=== PATIENT | male | born 1960 | race African-American/Black ===

== ENCOUNTER 2019-02-23 09:20 | Outpatient (CLI) | payer OTHER ==
--- NOTE | 2019-02-24 19:55 | EKG ---
Test Reason : Blood Pressure : / mmHG Vent. Rate : 083 BPM Atrial Rate : 083 BPM P-R Int : 156 ms QRS Dur : 082 ms QT Int : 370 ms P-R-T Axes : 054 026 -29 degrees QTc Int : 434 ms Normal sinus rhythm Cannot rule out Anterior infarct , age undetermined Lateral injury pattern * ACUTE PA * Abnormal ECG When compared with ECG of 25-SEP-2010 17:32, Inverted T waves have replaced nonspecific T wave abnormality in Inferior leads Confirmed by MARELY HOLLINS, DR. Winston ([id number]) on 02/24/2019 7:55:19 PM Referred By: HERMELINDA Confirmed By:DR. Tish YAP MD
== END 2019-02-23 09:21 | disposition home or self-care (01) ==
LOC: LABBT 09:20
PROVIDERS: ATTEND Neurological Surgery
DX: Z01.818 Encounter for other preprocedural examination (principal); M54.16 Radiculopathy, lumbar region; M48.061 Spinal stenosis, lumbar region without neurogenic claudication
CPT/HCPCS: 93005; 93010

== ENCOUNTER 2019-03-19 05:38 | Day surgery (SDC) | payer OTHER ==
--- NOTE | 2019-03-18 16:54 | HP ---
HISTORY OF PRESENT ILLNESS: Mr. Perez is a pleasant 58-year-old gentleman here today for hospital followup from [facility]. He is known to our practice for distant lumbar decompression by Dr. Mallory. He is presenting with severe symptoms of neurogenic claudication, gait disturbance, and most recently some frequent urination. He reports one episode of incontinence that seems to be more related to the inability to get to the bathroom quick enough. He is using a walker now to mobilize. Pain is better at all times, worsens with ambulation. Nothing has really improved his symptoms. Other than numerous epidural steroid injections with integrated pain, which has recently not provided any more relief. MRI from [facility] reveals severe central canal stenosis at L2-3 above his prior laminectomy site. This is secondary to bone spurring as well as new disk herniation at L2. PAST MEDICAL HISTORY: Significant for hyperlipidemia, chronic pain syndrome, seasonal allergies, depression, hypertension, diabetes. CURRENT MEDICATIONS: 1. Voltaren. 2. Onglyza. 3. [place]. 4. Narcan. 5. Mobic. 6. Metoprolol. 7. Metformin. 8. Losartan. 9. Gabapentin. 10. Fluticasone. 11. Flexeril. 12. Duloxetine. 13. Cetirizine. 14. Baclofen. 15. Atorvastatin. ALLERGIES: NO KNOWN DRUG ALLERGIES. PHYSICAL EXAMINATION: GENERAL: The patient is alert and oriented x3. Gait is profoundly antalgic and stooped. EXTREMITIES: Lower extremity exam is essentially normal. He does have positive bilateral straight leg raise. ASSESSMENT: Lumbar stenosis and neurogenic claudication. PLAN: Dr. Lewis met with the patient, reviewed imaging, and advocated for L2-3 decompression. He explained to the patient the risks, benefits, and alternatives to the procedure. The patient expressed understanding and elected to move forward with surgery as discussed. I do believe the patient is mentally competent and capable of making medical decisions for himself. We will move forward with surgery as planned. Job ID: [id number]
[2019-03-19] MEDS ORDERED: Fentanyl 100 MCG/2 ML VIAL ONE ×5 (06:17→10:01)
[2019-03-19] MEDS ORDERED: Bupivacaine HCl 0.5%/Epinephrine 1:200,000/PF 30 ml Vial ONE (06:21)
[2019-03-19] MEDS ORDERED: Thrombin 5000 UNITS/5 ML VIAL ONE (06:21)
[2019-03-19] MEDS ORDERED: PHENYLEPHRINE-NS 100 MCG/ML 10 ML SYRINGE ONE (08:20)
[2019-03-19] MEDS ORDERED: Morphine Sulfate 2 MG/ML SYRINGE SLOW IVP PRN (09:11)
[2019-03-19] MEDS ORDERED: Meperidine HCl/PF 25 MG/ML VIAL SLOW IVP PRN (09:11)
[2019-03-19] MEDS ORDERED: PACU-Morphine 4MG/ML VIAL SLOW IVP PRN (09:11)
[2019-03-19] MEDS ORDERED: HYDROmorphone 2 MG/ML VIAL SLOW IVP PRN (09:11)
[2019-03-19] MEDS ORDERED: Ondansetron HCl/PF 4 MG/2 ML Vial IVP PRN (09:11)
[2019-03-19] MEDS ORDERED: Promethazine HCl 25 MG/ML VIAL SLOW IVP PRN (09:11)
[2019-03-19] MEDS ORDERED: Promethazine HCl 25 MG/ML VIAL IM PRN (09:11)
[2019-03-19] MEDS ORDERED: Tamsulosin HCl 0.4 MG CAP ONE (09:21)
[2019-03-19] MEDS ORDERED: Morphine 4 MG/ML VIAL ONE ×2 (09:26→09:42)
[2019-03-19] MEDS ORDERED: Morphine 2 MG/ML SYRINGE ONE (09:33)
[2019-03-19] MEDS ORDERED: Acetaminophen 1,000 MG in Premix Bag 1 BAG IVPB SCH (10:15)
[2019-03-19] MEDS ORDERED: diphenhydrAMINE 25 MG CAP PO PRN (10:21)
[2019-03-19] MEDS ORDERED: Acetaminophen 650 MG Suppository PR PRN (10:21)
[2019-03-19] MEDS ORDERED: Acetaminophen 325 MG TAB PO PRN (10:21)
[2019-03-19] MEDS ORDERED: Bisacodyl 10 MG SUPP PR PRN (10:21)
[2019-03-19] MEDS ORDERED: diphenhydrAMINE 50 MG/ML VIAL IVP PRN (10:21)
[2019-03-19] MEDS ORDERED: Mag-Al 1200 mg/1200 mg/30 ML UDCUP PO PRN (10:21)
[2019-03-19] MEDS ORDERED: Acetaminophen/Codeine 30-300mg Tablet PO PRN (10:21)
[2019-03-19] MEDS ORDERED: Ondansetron PF 4 MG/2 ML Vial IM PRN (10:23)
[2019-03-19 11:03] VITALS: BMI 48.1
[2019-03-19] MEDS: Sodium Chloride 0.9% 1,000 ML IV SCH ×2 (11:16→22:37)
[2019-03-19] MEDS: Morphine 4 MG/ML VIAL SLOW IVP PRN ×4 (11:18→22:37)
--- NOTE | 2019-03-19 11:44 | OP ---
DATE OF PROCEDURE: 03/19/2019 [employer] SPECIALIST: German Rivera PA-C INDICATION: Pain. DIAGNOSIS: Lumbar radiculopathy. PROCEDURES PERFORMED: Reoperation of L2-L3 decompression. ANESTHESIA: General. DESCRIPTION OF PROCEDURE: The patient was brought into the operating room and placed under general anesthesia. He was flipped from the supine to prone position on the operating room table. A linear incision was planned over the L2-L3 segment, which encompassed previous incision. After prepping and draping and after an appropriate perioperative pause, the incision was created. The soft tissues were swept left of midline. Ectopic bone was identified, which was present in the location of the patient's prior operation. The spinous process at L2-L3 was missing. A high-speed cutting drill bit as well as 1, 2, and 3 mm Kerrisons used to drill down the lateral recesses. The pedicles bilaterally were identified at L2 and L3. The lateral recesses were decompressed by moving the medial aspect of the facet joints on both sides. There remained ectopic bone over the central portion of the canal, but this was not compressive and not removed secondary to its adhesion to the underlying dura. After decompressing the segment, the wound was irrigated. Hemostasis was maintained throughout. The wound was then closed in anatomic layers and a pressure dressing was applied. There were no known procedural complications. Job ID: [id number]
[2019-03-19] MEDS: CEFAZOLIN 2 GM in Premix Bag 1 BAG IVPB SCH ×2 (15:23→22:36)
[2019-03-19] MEDS: Cyclobenzaprine 10 MG TAB PO PRN (17:41)
[2019-03-19] MEDS: Acetaminophen/Codeine 30-300mg Tablet PO PRN ×2 (19:07→22:37)
[2019-03-19] MEDS ORDERED: Methocarbamol 500 MG TAB PO SCH (21:00)
[2019-03-19] MEDS ORDERED: Non-Formulary Item 1 EACH (Gabapentin [Gabapentin] 1 TAB) PO SCH (21:00)
[2019-03-20] MEDS: Acetaminophen/Codeine 30-300mg Tablet PO PRN (05:34)
[2019-03-20] MEDS: Cyclobenzaprine 10 MG TAB PO PRN (05:34)
[2019-03-20] MEDS ORDERED: Tamsulosin HCl 0.4 MG CAP PO SCH (06:00)
[2019-03-20] MEDS ORDERED: metFORMIN 500 MG TAB PO SCH (08:00)
[2019-03-20] MEDS: Morphine 4 MG/ML VIAL SLOW IVP PRN (08:15)
[2019-03-20 08:27] VITALS: BP 125/68; TEMP 97.5
[2019-03-20] MEDS ORDERED: Amlodipine 10 MG TAB PO SCH (09:00)
[2019-03-20] MEDS ORDERED: Losartan 25 MG TAB PO SCH (09:00)
[2019-03-20] MEDS ORDERED: DULoxetine 60 MG CAP PO SCH (09:00)
[2019-03-20] MEDS ORDERED: SAXAGLIPTIN HCL PO SCH (09:00)
--- NOTE | 2019-03-20 14:12 | DIS ---
DATE OF ADMISSION: 03/19/2019 DATE OF DISCHARGE: 03/20/2019 The patient is a 58-year-old male, who is known to Dr. Lewis's Service for recent evaluation for progressive lumbar stenosis above his prior fusion and underwent L2 through L3 laminectomy on 03/19/2019. Following the surgery, the patient was transitioned to the floor, where his pain has been well controlled with p.o. medications, he is tolerating a regular diet, and he is voiding appropriately. He reports he has been ambulating easily in the hallways. On exam this morning, the patient is sitting up in a chair. He has no acute distress. He has free active range of motion of all extremities. No incisional issues. We will plan to dismiss the patient to home. I have discussed home care and precautions. I have provided him with a script for Tylenol No. 3. He should follow up with Dr. Lewis in 2 weeks. Job ID: [id number]
== END 2019-03-20 11:05 | disposition home or self-care (01) ==
LOC: SDC 05:38 → 2SW 09:45 → SDC 03-20 11:05
PROVIDERS: ATTEND Neurological Surgery
PROC: 0SB20ZZ Excision of Lumbar Vertebral Disc, Open Approach (ICD-10-PCS; principal; 2019-03-19)
DX: M48.061 Spinal stenosis, lumbar region without neurogenic claudication (principal); M54.16 Radiculopathy, lumbar region; I10 Essential (primary) hypertension; E78.5 Hyperlipidemia, unspecified; G47.30 Sleep apnea, unspecified; E66.01 Morbid (severe) obesity due to excess calories; Z68.42 Body mass index [BMI] 45.0-49.9, adult; Z99.89 Dependence on other enabling machines and devices
CPT/HCPCS: 36416; 76000; J0131; J0670; J0690; J2270; J3010

== ENCOUNTER 2020-06-30 07:08 | Day surgery (SDC) | payer OTHER ==
[2020-06-29 09:30] VITALS: BMI 44.8
--- NOTE | 2020-06-29 21:49 | HP ---
HISTORY OF PRESENT ILLNESS: Mr. Perez is known to us for prior lumbar decompression, who returns now with ever increasing symptoms of myelopathy. He also has concern not dissimilar to the last time he had surgery where he developed and now has also redeveloped symptoms of incontinence. This took him to the emergency department most recently where an MRI was performed at [facility] revealing rather profound central canal stenosis at L2-3, the level above his prior surgical site. Most certainly, this would explain his symptoms. PAST MEDICAL HISTORY: Significant for chronic pain syndrome, hyperlipidemia, anxiety, seasonal allergies, hypertension, and diabetes. CURRENT MEDICATIONS: 1. Voltaren. 2. Onglyza. 3. [place]. 4. Narcan. 5. Mobic. 6. Metoprolol. 7. Metformin. 8. Losartan. 9. Gabapentin. 10. Fluticasone. 11. Flexeril. 12. Duloxetine. 13. Cetirizine. 14. Baclofen. 15. Atorvastatin. ALLERGIES: TO CODEINE. PHYSICAL EXAMINATION: Deferred for telehealth visit. ASSESSMENT: Lumbar spinal stenosis with neurogenic claudication. PLAN: Dr. Lewis met with the patient, reviewed imaging, and advocated for an L2-L3 decompression. He explained to the patient the risks, benefits, and alternatives to the procedure. The patient expressed understanding and elected to move forward with surgery as discussed. I do believe the patient is mentally competent and capable of making medical decisions for himself. We will move forward with surgery as planned. Job ID: [id number]
[2020-06-30 08:29] LABS: Anion Gap 15 mmol/L (10-20); BUN (Urea Nitrogen) 22 mg/dL (8.4-25.7); Calc. Creatinine Clearance 111 mL/min (70-130); Calcium 9.1 mg/dL (7.8-10.44); Carbon Dioxide 23 mmol/L (23-31); Chloride 104 mmol/L (98-107); Glucose 153 mg/dL (80-115); Potassium 4.9 mmol/L (3.5-5.1); Sodium 137 mmol/L (136-145)
[2020-06-30] MEDS ORDERED: EPINEPHrine 1 MG/ML AMP ONE (08:39)
[2020-06-30] MEDS ORDERED: Bupivacaine PF 0.5% 30 ML VIAL ONE (08:39)
[2020-06-30] MEDS ORDERED: Morphine 2 MG/ML VIAL ONE (09:05)
[2020-06-30] MEDS ORDERED: Fentanyl 100 MCG/2 ML VIAL ONE ×5 (09:12→13:04)
--- NOTE | 2020-06-30 11:17 | OP ---
DATE OF PROCEDURE: 06/30/2020 [employer] OPERATOR: German Rivera PA-C INDICATION: Pain. DIAGNOSIS: Lumbar radiculopathy. PROCEDURE PERFORMED: Reoperation of L2-L3 decompression. ANESTHESIA: General. DESCRIPTION OF PROCEDURE: The patient was brought into the operating room and placed under general anesthesia. He was flipped from the supine to prone position on the operating room table. A linear incision was planned at the location of a prior incision. After prepping and draping and after an appropriate preoperative pause, the incision was created. The soft tissues were swept away from midline. A self-retaining retractor was placed in the wound for optimal exposure. After confirming the appropriate level with C-arm fluoroscopy, a bone defect was identified in the patient's prior operation. High-speed cutting drill bit as well as 1, 2, and 3 mm Kerrisons were then used to further complete laminectomy at L2-L3 with on the right, which was where the patient's pain was. We extended our laminectomy right from pedicle to pedicle at L2-L3. The cystic wall was encountered, which had been decompressed coming in to the area of the lamina. At the completion of the procedure, the L2-L3 segment, specifically the right L2-L3 lateral recess was very well decompressed. The wound was then irrigated. Hemostasis was maintained throughout. The wound was then closed in anatomic layers, and a pressure dressing was applied. There were no known procedural complications. Job ID: [id number]
[2020-06-30] MEDS ORDERED: HYDROcodone/Acetaminophen 5/325 mg Tablet ONE (12:48)
[2020-06-30] MEDS ORDERED: Tamsulosin HCl 0.4 MG CAP ONE (13:26)
== END 2020-06-30 14:55 | disposition home or self-care (01) ==
LOC: SDC 07:08
PROVIDERS: ATTEND Neurological Surgery
PROC: 00NY0ZZ Release Lumbar Spinal Cord, Open Approach (ICD-10-PCS; principal; 2020-06-30)
DX: M54.16 Radiculopathy, lumbar region (principal); M48.062 Spinal stenosis, lumbar region with neurogenic claudication; G89.4 Chronic pain syndrome; I10 Essential (primary) hypertension; E11.9 Type 2 diabetes mellitus without complications; E78.5 Hyperlipidemia, unspecified; F41.9 Anxiety disorder, unspecified; J30.2 Other seasonal allergic rhinitis; Z79.84 Long term (current) use of oral hypoglycemic drugs; Z79.899 Other long term (current) drug therapy; Z88.5 Allergy status to narcotic agent; Z96.642 Presence of left artificial hip joint
CPT/HCPCS: 36415; 76000; 80048; J0171; J0690; J2270; J3010; S0020

== ENCOUNTER 2020-09-25 09:35 | Outpatient (CLI) | payer OTHER ==
[2020-09-25] MEDS ORDERED: Magnevist 469MG/ML 20 ML VIAL ONE (10:51)
== END 2020-09-25 09:36 | disposition home or self-care (01) ==
LOC: TBSIIMAG 09:35
PROVIDERS: ATTEND Neurological Surgery
DX: M54.16 Radiculopathy, lumbar region (principal); M96.1 Postlaminectomy syndrome, not elsewhere classified; M48.061 Spinal stenosis, lumbar region without neurogenic claudication
CPT/HCPCS: 72100; 72158

== ENCOUNTER 2020-09-26 03:46 | Inpatient (IN) | payer OTHER ==
[2020-09-26] MEDS ORDERED: Bisacodyl 5 MG TAB PO PRN (04:56)
[2020-09-26] MEDS ORDERED: Ondansetron PF 4 MG/2 ML Vial IVP PRN (04:56)
[2020-09-26] MEDS ORDERED: HYDROcodone/Acetaminophen 5/325 mg Tablet PO PRN (04:56)
[2020-09-26] MEDS ORDERED: Fluticasone Propionate Nasal Spray 16 gm Bottle NASAL PRN (05:02)
[2020-09-26] MEDS ORDERED: HYDROcodone/Acetaminophen 10/325 mg Tablet PO PRN (05:02)
[2020-09-26] MEDS ORDERED: hydrALAZINE 20 MG/ML VIAL SLOW IVP PRN (05:06)
[2020-09-26 05:16] VITALS: BMI 49.4
[2020-09-26] MEDS ORDERED: Morphine 4 MG/ML VIAL SLOW IVP SCH (05:45)
[2020-09-26] MEDS: HumaLOG 300 UNITS/3 ML VIAL SC PRN (06:00)
[2020-09-26] MEDS: Sodium Chloride 0.9% 1,000 ML IV SCH ×2 (06:16→20:53)
[2020-09-26] MEDS: Pregabalin 50 MG CAP PO SCH ×3 (08:57→20:52)
[2020-09-26] MEDS: Famotidine 20 MG TAB PO SCH ×2 (08:57→20:52)
[2020-09-26] MEDS: DULoxetine 60 MG CAP PO SCH (08:57)
[2020-09-26] MEDS: Zinc Sulfate 220 MG CAP PO SCH (08:59)
[2020-09-26] MEDS: Alogliptin 25 MG TAB PO SCH (08:59)
[2020-09-26] MEDS: Amlodipine 10 MG TAB PO SCH (08:59)
[2020-09-26] MEDS ORDERED: Enoxaparin Sodium 40 MG/0.4 ML SYRINGE SC SCH (09:00)
[2020-09-26] MEDS: Furosemide 20 MG TAB PO SCH (09:00)
[2020-09-26] MEDS: Glimepiride 2 MG TAB PO SCH (09:00)
[2020-09-26] MEDS ORDERED: Aspirin 325 MG TAB PO SCH (09:00)
[2020-09-26] MEDS: Magnesium Oxide 400 MG TAB PO SCH (09:00)
[2020-09-26] MEDS: Multivit, Therapeutic 1 TAB PO SCH (09:00)
[2020-09-26] MEDS: Morphine 4 MG/ML VIAL SLOW IVP PRN ×3 (10:09→19:17)
[2020-09-26 11:34] LABS: SARS-CoV-2 PCR by NAA Not Detected (NotDetected)
[2020-09-26] MEDS: metFORMIN 500 MG TAB PO SCH (12:52)
[2020-09-26] MEDS ORDERED: Vancomycin 1 GM in Premix Bag 1 BAG IVPB SCH ×2 (18:00→23:59)
[2020-09-26] MEDS: Vancomycin 1.5 GRAM/300 ML BAG 1.5 GM in Premix Bag 1 BAG IVPB SCH (18:02)
[2020-09-26] MEDS: Atorvastatin Calcium 20 MG TAB PO SCH (20:52)
[2020-09-27] MEDS: Morphine 4 MG/ML VIAL SLOW IVP PRN ×5 (01:07→21:12)
[2020-09-27] MEDS: Vancomycin 1.5 GRAM/300 ML BAG 1.5 GM in Premix Bag 1 BAG IVPB SCH ×2 (05:37→17:48)
[2020-09-27 06:34] LABS: Hemoglobin 12.1 g/dL (14.0-18.0); Mean Corpuscular HGB CONC 30.3 g/dL (32.0-36.0); Mean Corpuscular Hemoglobin 27.3 pg (27.0-31.0); Mean Corpuscular Volume 90.1 fL (78.0-98.0); Mean Platelet Volume 6.4 fL (7.4-10.4); Platelet Count 514 thou/uL (130-400); RBC Distribution Width 13.3 % (11.5-14.5); Red Blood Cell (RBC) Count 4.43 mill/uL (4.70-6.10); White Blood Cell (WBC) Count 7.6 thou/uL (4.8-10.8)
[2020-09-27 06:46] LABS: ALT (SGPT) 20 U/L (8-55); AST (SGOT) 15 U/L (5-34); Albumin 3.8 g/dL (3.4-4.8); Alkaline Phosphatase 77 U/L (40-110); Anion Gap 15 mmol/L (10-20); BUN (Urea Nitrogen) 15 mg/dL (8.4-25.7); Bilirubin, Total 0.4 mg/dL (0.2-1.2); Calc. Creatinine Clearance 154 mL/min (70-130); Calcium 9.3 mg/dL (7.8-10.44); Carbon Dioxide 24 mmol/L (23-31); Chloride 103 mmol/L (98-107); Globulin 3.2 g/dL (2.4-3.5); Glucose 150 mg/dL (80-115); Magnesium 2.2 mg/dL (1.6-2.6); Potassium 4.5 mmol/L (3.5-5.1); Sodium 137 mmol/L (136-145)
[2020-09-27] MEDS: Multivit, Therapeutic 1 TAB PO SCH (08:07)
[2020-09-27] MEDS: Glimepiride 2 MG TAB PO SCH (08:07)
[2020-09-27] MEDS: Furosemide 20 MG TAB PO SCH (08:07)
[2020-09-27] MEDS: Alogliptin 25 MG TAB PO SCH (08:07)
[2020-09-27] MEDS: DULoxetine 60 MG CAP PO SCH (08:07)
[2020-09-27] MEDS: Famotidine 20 MG TAB PO SCH ×2 (08:07→21:13)
[2020-09-27] MEDS: Pregabalin 50 MG CAP PO SCH ×3 (08:07→21:13)
[2020-09-27] MEDS: Amlodipine 10 MG TAB PO SCH (08:07)
[2020-09-27] MEDS: Zinc Sulfate 220 MG CAP PO SCH (08:07)
[2020-09-27] MEDS: Magnesium Oxide 400 MG TAB PO SCH (08:07)
[2020-09-27 08:23] LABS: Lymphocytes 16 % (21-51); MDiff Complete? YES; Monocytes 7 % (0-10); Neutrophil 76 % (42-75); Platelet Morphology Comment Appears Increased; Polychromasia SLIGHT = 2-3 cells (100X) (0-2/hpf)
[2020-09-27] MEDS: Sodium Chloride 0.9% 1,000 ML IV SCH (10:03)
[2020-09-27] MEDS: metFORMIN 500 MG TAB PO SCH (12:32)
[2020-09-27] MEDS: Ketorolac Tromethamine 30 MG/ML VIAL IVP SCH ×3 (12:33→23:47)
[2020-09-27] MEDS: HYDROcodone/Acetaminophen 10/325 mg Tablet PO PRN (18:14)
[2020-09-27] MEDS: Atorvastatin Calcium 20 MG TAB PO SCH (21:23)
[2020-09-28] MEDS: Ketorolac Tromethamine 30 MG/ML VIAL IVP SCH ×4 (05:14→22:59)
[2020-09-28] MEDS: Morphine 4 MG/ML VIAL SLOW IVP PRN ×4 (05:15→22:53)
[2020-09-28 06:01] LABS: #Basophils 0.1 thou/uL (0.0-0.2); #Eosinphils 0.2 thou/uL (0.0-0.7); #Lymphocytes 1.9 thou/uL (1.20-3.40); #Monocytes 0.5 thou/uL (0.11-0.59); #Neutrophils 4.9 thou/uL (1.40-6.50); %Eosinophils 2.7 % (0.0-10.0); %Lymphocytes 24.6 % (21.0-51.0); %Monocytes 6.5 % (0.0-10.0); %Neutrophils 65.2 % (42.0-75.0); Hemoglobin 12.2 g/dL (14.0-18.0); Mean Corpuscular HGB CONC 31.3 g/dL (32.0-36.0); Mean Corpuscular Hemoglobin 28.2 pg (27.0-31.0); Mean Platelet Volume 6.3 fL (7.4-10.4); Platelet Count 478 thou/uL (130-400); RBC Distribution Width 13.1 % (11.5-14.5); Red Blood Cell (RBC) Count 4.33 mill/uL (4.70-6.10); White Blood Cell (WBC) Count 7.6 thou/uL (4.8-10.8)
[2020-09-28 06:22] LABS: Vancomycin, Trough 14.9 ug/mL
[2020-09-28] MEDS: HYDROcodone/Acetaminophen 10/325 mg Tablet PO PRN ×2 (06:36→20:30)
[2020-09-28] MEDS: VANCOMYCIN 1.75 GM/350 ML BAG 1.75 GM in Premix Bag 1 BAG IVPB SCH ×2 (06:40→17:45)
[2020-09-28] MEDS: Vancomycin 1.5 GRAM/300 ML BAG 1.5 GM in Premix Bag 1 BAG IVPB SCH (07:37)
[2020-09-28] MEDS: Famotidine 20 MG TAB PO SCH ×2 (08:57→20:29)
[2020-09-28] MEDS: Glimepiride 2 MG TAB PO SCH (08:57)
[2020-09-28] MEDS: Zinc Sulfate 220 MG CAP PO SCH (08:58)
[2020-09-28] MEDS: Magnesium Oxide 400 MG TAB PO SCH (08:58)
[2020-09-28] MEDS: DULoxetine 60 MG CAP PO SCH (08:58)
[2020-09-28] MEDS: Pregabalin 50 MG CAP PO SCH ×3 (08:58→20:29)
[2020-09-28] MEDS: Alogliptin 25 MG TAB PO SCH (08:58)
[2020-09-28] MEDS: Multivit, Therapeutic 1 TAB PO SCH (08:59)
[2020-09-28] MEDS: Amlodipine 10 MG TAB PO SCH (09:00)
[2020-09-28] MEDS: Furosemide 20 MG TAB PO SCH (09:00)
[2020-09-28] MEDS: Senokot S 8.6-50 MG TAB PO PRN (12:09)
[2020-09-28] MEDS: metFORMIN 500 MG TAB PO SCH (12:09)
[2020-09-28] MEDS ORDERED: Sodium Bicarbonate 2.5 MEQ/5 ML VIAL ONE (14:17)
[2020-09-28] MEDS ORDERED: Fentanyl 100 MCG/2 ML VIAL ONE (15:05)
[2020-09-28] MEDS: Cefepime 2 GM in Sodium Chloride 0.9% 100 ML IVPB SCH (20:28)
[2020-09-28] MEDS: Cyclobenzaprine 10 MG TAB PO PRN (20:29)
[2020-09-28] MEDS: Atorvastatin Calcium 20 MG TAB PO SCH (20:29)
[2020-09-28] MEDS: Zolpidem Tartrate 5 MG TAB PO PRN (20:33)
[2020-09-29] MEDS: Ketorolac Tromethamine 30 MG/ML VIAL IVP SCH ×4 (05:13→23:07)
[2020-09-29] MEDS: Cefepime 2 GM in Sodium Chloride 0.9% 100 ML IVPB SCH ×2 (05:13→16:54)
[2020-09-29] MEDS: VANCOMYCIN 1.75 GM/350 ML BAG 1.75 GM in Premix Bag 1 BAG IVPB SCH (05:14)
[2020-09-29] MEDS: HYDROcodone/Acetaminophen 10/325 mg Tablet PO PRN ×4 (05:27→23:08)
[2020-09-29] MEDS: Glimepiride 2 MG TAB PO SCH (08:14)
[2020-09-29] MEDS: DULoxetine 60 MG CAP PO SCH (08:14)
[2020-09-29] MEDS: Alogliptin 25 MG TAB PO SCH (08:15)
[2020-09-29] MEDS: Zinc Sulfate 220 MG CAP PO SCH (08:15)
[2020-09-29] MEDS: Furosemide 20 MG TAB PO SCH (08:15)
[2020-09-29] MEDS: Magnesium Oxide 400 MG TAB PO SCH (08:15)
[2020-09-29] MEDS: Famotidine 20 MG TAB PO SCH ×2 (08:15→21:58)
[2020-09-29] MEDS: Multivit, Therapeutic 1 TAB PO SCH (08:15)
[2020-09-29] MEDS: Pregabalin 50 MG CAP PO SCH ×3 (08:15→21:59)
[2020-09-29] MEDS: Amlodipine 10 MG TAB PO SCH (08:15)
[2020-09-29] MEDS: Morphine 4 MG/ML VIAL SLOW IVP PRN ×3 (09:29→18:25)
[2020-09-29] MEDS: Lidocaine 5% Patch TD SCH (11:52)
[2020-09-29] MEDS: metFORMIN 500 MG TAB PO SCH (11:52)
[2020-09-29] MEDS: HumaLOG 300 UNITS/3 ML VIAL SC PRN (12:05)
[2020-09-29 17:18] LABS: Vancomycin, Trough 24.3 ug/mL
[2020-09-29] MEDS: Vancomycin 1.5 GRAM/300 ML BAG 1.5 GM in Premix Bag 1 BAG IVPB SCH (18:24)
[2020-09-29] MEDS: Cyclobenzaprine 10 MG TAB PO PRN (21:59)
[2020-09-29] MEDS: Atorvastatin Calcium 20 MG TAB PO SCH (21:59)
[2020-09-29] MEDS: Transdermal Patch Removal TOP SCH (23:00)
[2020-09-30] MEDS: Morphine 4 MG/ML VIAL SLOW IVP PRN ×2 (01:58→20:00)
[2020-09-30 05:29] LABS: #Eosinphils 0.2 thou/uL (0.0-0.7); #Lymphocytes 1.6 thou/uL (1.20-3.40); #Monocytes 0.6 thou/uL (0.11-0.59); #Neutrophils 4.8 thou/uL (1.40-6.50); %Basophils 0.6 % (0.0-1.0); %Eosinophils 2.6 % (0.0-10.0); %Lymphocytes 22.3 % (21.0-51.0); %Monocytes 8.7 % (0.0-10.0); %Neutrophils 65.8 % (42.0-75.0); Hemoglobin 11.7 g/dL (14.0-18.0); Mean Corpuscular HGB CONC 30.1 g/dL (32.0-36.0); Mean Corpuscular Hemoglobin 27.2 pg (27.0-31.0); Mean Corpuscular Volume 90.4 fL (78.0-98.0); Mean Platelet Volume 6.4 fL (7.4-10.4); Platelet Count 469 thou/uL (130-400); White Blood Cell (WBC) Count 7.3 thou/uL (4.8-10.8)
[2020-09-30] MEDS: Ketorolac Tromethamine 30 MG/ML VIAL IVP SCH ×4 (05:53→23:58)
[2020-09-30] MEDS: Cefepime 2 GM in Sodium Chloride 0.9% 100 ML IVPB SCH ×2 (05:53→17:30)
[2020-09-30] MEDS: HYDROcodone/Acetaminophen 10/325 mg Tablet PO PRN ×2 (05:54→11:37)
[2020-09-30] MEDS: Vancomycin 1.5 GRAM/300 ML BAG 1.5 GM in Premix Bag 1 BAG IVPB SCH ×3 (06:31→18:43)
[2020-09-30] MEDS: Senokot S 8.6-50 MG TAB PO PRN ×2 (09:31→19:59)
[2020-09-30] MEDS: Magnesium Oxide 400 MG TAB PO SCH (09:31)
[2020-09-30] MEDS: Pregabalin 50 MG CAP PO SCH ×3 (09:32→20:00)
[2020-09-30] MEDS: Famotidine 20 MG TAB PO SCH ×2 (09:32→19:59)
[2020-09-30] MEDS: DULoxetine 60 MG CAP PO SCH (09:32)
[2020-09-30] MEDS: Multivit, Therapeutic 1 TAB PO SCH (09:32)
[2020-09-30] MEDS: Alogliptin 25 MG TAB PO SCH (09:32)
[2020-09-30] MEDS: Furosemide 20 MG TAB PO SCH (09:33)
[2020-09-30] MEDS: Zinc Sulfate 220 MG CAP PO SCH (09:33)
[2020-09-30] MEDS: Amlodipine 10 MG TAB PO SCH (09:33)
[2020-09-30] MEDS: Glimepiride 2 MG TAB PO SCH (09:33)
[2020-09-30] MEDS: metFORMIN 500 MG TAB PO SCH (11:37)
[2020-09-30] MEDS: Lidocaine 5% Patch TD SCH (11:37)
[2020-09-30] MEDS: Cyclobenzaprine 10 MG TAB PO PRN (15:44)
[2020-09-30] MEDS: HumaLOG 300 UNITS/3 ML VIAL SC PRN (17:31)
[2020-09-30 18:36] LABS: Vancomycin, Trough 23.8 ug/mL
[2020-09-30] MEDS: VANCOMYCIN 1.25 GM/250 ML BAG 1.25 GM in Premix Bag 1 BAG IVPB SCH (19:58)
[2020-09-30] MEDS: Atorvastatin Calcium 20 MG TAB PO SCH (19:59)
[2020-09-30] MEDS: Transdermal Patch Removal TOP SCH (23:58)
[2020-10-01] MEDS: Cyclobenzaprine 10 MG TAB PO PRN ×2 (05:23→20:02)
[2020-10-01] MEDS: Cefepime 2 GM in Sodium Chloride 0.9% 100 ML IVPB SCH ×2 (05:23→17:32)
[2020-10-01] MEDS: HYDROcodone/Acetaminophen 10/325 mg Tablet PO PRN ×3 (05:23→20:01)
[2020-10-01] MEDS: Ketorolac Tromethamine 30 MG/ML VIAL IVP SCH ×3 (05:23→17:32)
[2020-10-01] MEDS: Alogliptin 25 MG TAB PO SCH (09:55)
[2020-10-01] MEDS: DULoxetine 60 MG CAP PO SCH (09:55)
[2020-10-01] MEDS: Furosemide 20 MG TAB PO SCH (09:56)
[2020-10-01] MEDS: Magnesium Oxide 400 MG TAB PO SCH (09:56)
[2020-10-01] MEDS: Famotidine 20 MG TAB PO SCH ×2 (09:56→20:01)
[2020-10-01] MEDS: Amlodipine 10 MG TAB PO SCH (09:56)
[2020-10-01] MEDS: Senokot S 8.6-50 MG TAB PO PRN (09:56)
[2020-10-01] MEDS: Pregabalin 50 MG CAP PO SCH ×3 (09:57→20:02)
[2020-10-01] MEDS: Zinc Sulfate 220 MG CAP PO SCH (09:57)
[2020-10-01] MEDS: Glimepiride 2 MG TAB PO SCH (09:59)
[2020-10-01] MEDS: Multivit, Therapeutic 1 TAB PO SCH (09:59)
[2020-10-01] MEDS: Lidocaine 5% Patch TD SCH (10:01)
[2020-10-01] MEDS: VANCOMYCIN 1.25 GM/250 ML BAG 1.25 GM in Premix Bag 1 BAG IVPB SCH ×2 (10:07→20:00)
[2020-10-01] MEDS ORDERED: Polyethylene Glycol 3350 17 GM Packet PO SCH (11:00)
[2020-10-01] MEDS: metFORMIN 500 MG TAB PO SCH (11:44)
[2020-10-01] MEDS: Morphine 4 MG/ML VIAL SLOW IVP PRN (15:33)
[2020-10-01] MEDS: Atorvastatin Calcium 20 MG TAB PO SCH (20:01)
[2020-10-02] MEDS: Transdermal Patch Removal TOP SCH ×2 (00:21→21:59)
[2020-10-02] MEDS: Morphine 4 MG/ML VIAL SLOW IVP PRN (00:22)
[2020-10-02] MEDS: Ketorolac Tromethamine 30 MG/ML VIAL IVP SCH ×4 (00:23→17:46)
[2020-10-02] MEDS: Cefepime 2 GM in Sodium Chloride 0.9% 100 ML IVPB SCH ×2 (06:03→17:46)
[2020-10-02] MEDS: Cyclobenzaprine 10 MG TAB PO PRN ×2 (06:03→21:52)
[2020-10-02] MEDS: HumaLOG 300 UNITS/3 ML VIAL SC PRN (06:04)
[2020-10-02] MEDS: HYDROcodone/Acetaminophen 10/325 mg Tablet PO PRN ×2 (06:04→21:52)
[2020-10-02 07:30] LABS: Vancomycin, Trough 21.5 ug/mL
[2020-10-02] MEDS: Famotidine 20 MG TAB PO SCH ×2 (08:11→21:51)
[2020-10-02] MEDS: Magnesium Oxide 400 MG TAB PO SCH (08:11)
[2020-10-02] MEDS: Amlodipine 10 MG TAB PO SCH (08:11)
[2020-10-02] MEDS: Multivit, Therapeutic 1 TAB PO SCH (08:11)
[2020-10-02] MEDS: Furosemide 20 MG TAB PO SCH (08:11)
[2020-10-02] MEDS: Alogliptin 25 MG TAB PO SCH (08:11)
[2020-10-02] MEDS: DULoxetine 60 MG CAP PO SCH (08:11)
[2020-10-02] MEDS: Zinc Sulfate 220 MG CAP PO SCH (08:12)
[2020-10-02] MEDS: Pregabalin 50 MG CAP PO SCH ×3 (08:12→21:52)
[2020-10-02] MEDS: Polyethylene Glycol 3350 17 GM Packet PO SCH (08:13)
[2020-10-02] MEDS: Glimepiride 2 MG TAB PO SCH (08:13)
[2020-10-02] MEDS: Vancomycin 1 GM in Premix Bag 1 BAG IVPB SCH ×2 (09:17→21:51)
[2020-10-02] MEDS: VANCOMYCIN 1.25 GM/250 ML BAG 1.25 GM in Premix Bag 1 BAG IVPB SCH (09:17)
[2020-10-02] MEDS: metFORMIN 500 MG TAB PO SCH (11:35)
[2020-10-02] MEDS: Lidocaine 5% Patch TD SCH (11:35)
[2020-10-02] MEDS: Atorvastatin Calcium 20 MG TAB PO SCH (21:52)
[2020-10-03] MEDS: Ketorolac Tromethamine 30 MG/ML VIAL IVP SCH (01:02)
[2020-10-03] MEDS: Morphine 4 MG/ML VIAL SLOW IVP PRN ×3 (01:03→21:15)
[2020-10-03] MEDS: HYDROcodone/Acetaminophen 10/325 mg Tablet PO PRN ×2 (06:07→16:57)
[2020-10-03] MEDS: Cefepime 2 GM in Sodium Chloride 0.9% 100 ML IVPB SCH ×2 (06:08→16:56)
[2020-10-03] MEDS: Cyclobenzaprine 10 MG TAB PO PRN (06:08)
[2020-10-03 08:36] LABS: #Basophils 0.1 thou/uL (0.0-0.2); #Eosinphils 0.1 thou/uL (0.0-0.7); #Lymphocytes 1.2 thou/uL (1.20-3.40); #Monocytes 0.4 thou/uL (0.11-0.59); #Neutrophils 3.1 thou/uL (1.40-6.50); %Basophils 1.2 % (0.0-1.0); %Eosinophils 2.4 % (0.0-10.0); %Lymphocytes 24.9 % (21.0-51.0); %Monocytes 8.6 % (0.0-10.0); Hemoglobin 12.8 g/dL (14.0-18.0); Mean Corpuscular Hemoglobin 27.6 pg (27.0-31.0); Mean Corpuscular Volume 89.1 fL (78.0-98.0); Mean Platelet Volume 6.3 fL (7.4-10.4); Platelet Count 387 thou/uL (130-400); RBC Distribution Width 12.9 % (11.5-14.5); Red Blood Cell (RBC) Count 4.63 mill/uL (4.70-6.10); White Blood Cell (WBC) Count 4.8 thou/uL (4.8-10.8)
[2020-10-03 08:52] LABS: ALT (SGPT) 20 U/L (8-55); AST (SGOT) 16 U/L (5-34); Albumin 3.8 g/dL (3.4-4.8); Alkaline Phosphatase 76 U/L (40-110); Anion Gap 11 mmol/L (10-20); BUN (Urea Nitrogen) 15 mg/dL (8.4-25.7); Bilirubin, Total 0.5 mg/dL (0.2-1.2); Calc. Creatinine Clearance 162 mL/min (70-130); Calcium 9.2 mg/dL (7.8-10.44); Carbon Dioxide 24 mmol/L (23-31); Chloride 105 mmol/L (98-107); Globulin 3.3 g/dL (2.4-3.5); Glucose 100 mg/dL (80-115); Magnesium 2.2 mg/dL (1.6-2.6); Phosphorus 3.3 mg/dL (2.3-4.7); Potassium 4.3 mmol/L (3.5-5.1); Protein, Total 7.1 g/dL (5.8-8.1); Sodium 136 mmol/L (136-145)
[2020-10-03] MEDS: Vancomycin 1 GM in Premix Bag 1 BAG IVPB SCH ×2 (09:17→20:54)
[2020-10-03] MEDS: Glimepiride 2 MG TAB PO SCH (09:17)
[2020-10-03] MEDS: Pregabalin 50 MG CAP PO SCH ×3 (09:18→20:55)
[2020-10-03] MEDS: Polyethylene Glycol 3350 17 GM Packet PO SCH ×2 (09:18→20:56)
[2020-10-03] MEDS: Alogliptin 25 MG TAB PO SCH (09:19)
[2020-10-03] MEDS: DULoxetine 60 MG CAP PO SCH (09:19)
[2020-10-03] MEDS: Zinc Sulfate 220 MG CAP PO SCH (09:19)
[2020-10-03] MEDS: Famotidine 20 MG TAB PO SCH ×2 (09:19→20:54)
[2020-10-03] MEDS: Magnesium Oxide 400 MG TAB PO SCH (09:19)
[2020-10-03] MEDS: Multivit, Therapeutic 1 TAB PO SCH (09:19)
[2020-10-03] MEDS: Amlodipine 10 MG TAB PO SCH (09:20)
[2020-10-03] MEDS: Furosemide 20 MG TAB PO SCH (09:20)
[2020-10-03] MEDS: metFORMIN 500 MG TAB PO SCH (11:55)
[2020-10-03] MEDS: Lidocaine 5% Patch TD SCH (11:55)
[2020-10-03] MEDS ORDERED: Senokot S 8.6-50 MG TAB PO SCH (12:15)
[2020-10-03] MEDS ORDERED: Polyethylene Glycol 3350 17 GM Packet PO SCH (12:15)
[2020-10-03] MEDS: Atorvastatin Calcium 20 MG TAB PO SCH (20:55)
[2020-10-03] MEDS: Bisacodyl 10 MG SUPP PR SCH (20:56)
[2020-10-03] MEDS: Senokot S 8.6-50 MG TAB PO SCH (20:56)
[2020-10-03] MEDS: Zolpidem Tartrate 5 MG TAB PO PRN (20:57)
[2020-10-03] MEDS: Transdermal Patch Removal TOP SCH (21:19)
[2020-10-04] MEDS: HYDROcodone/Acetaminophen 10/325 mg Tablet PO PRN ×3 (01:15→21:18)
[2020-10-04] MEDS: Cefepime 2 GM in Sodium Chloride 0.9% 100 ML IVPB SCH ×2 (05:01→17:19)
[2020-10-04] MEDS: HumaLOG 300 UNITS/3 ML VIAL SC PRN ×2 (05:02→13:53)
[2020-10-04 06:37] LABS: #Basophils 0.1 thou/uL (0.0-0.2); #Eosinphils 0.2 thou/uL (0.0-0.7); #Lymphocytes 1.4 thou/uL (1.20-3.40); #Monocytes 0.4 thou/uL (0.11-0.59); #Neutrophils 3.2 thou/uL (1.40-6.50); %Basophils 1.1 % (0.0-1.0); %Eosinophils 3.6 % (0.0-10.0); %Lymphocytes 25.8 % (21.0-51.0); %Neutrophils 61.5 % (42.0-75.0); Mean Corpuscular HGB CONC 31.2 g/dL (32.0-36.0); Mean Corpuscular Hemoglobin 27.7 pg (27.0-31.0); Mean Corpuscular Volume 88.7 fL (78.0-98.0); Mean Platelet Volume 6.3 fL (7.4-10.4); Platelet Count 340 thou/uL (130-400); Red Blood Cell (RBC) Count 4.36 mill/uL (4.70-6.10); White Blood Cell (WBC) Count 5.2 thou/uL (4.8-10.8)
[2020-10-04 06:55] LABS: Anion Gap 11 mmol/L (10-20); BUN (Urea Nitrogen) 14 mg/dL (8.4-25.7); Calc. Creatinine Clearance 195 mL/min (70-130); Calcium 9.3 mg/dL (7.8-10.44); Carbon Dioxide 26 mmol/L (23-31); Chloride 102 mmol/L (98-107); Glucose 128 mg/dL (80-115); Potassium 4.3 mmol/L (3.5-5.1); Sodium 135 mmol/L (136-145)
[2020-10-04] MEDS: Senokot S 8.6-50 MG TAB PO SCH ×2 (08:01→21:14)
[2020-10-04] MEDS: Magnesium Oxide 400 MG TAB PO SCH (08:01)
[2020-10-04] MEDS: Polyethylene Glycol 3350 17 GM Packet PO SCH ×2 (08:01→21:14)
[2020-10-04] MEDS: Famotidine 20 MG TAB PO SCH ×2 (08:01→21:11)
[2020-10-04] MEDS: Saccharomyces boulardii 250 MG CAP PO SCH (08:02)
[2020-10-04] MEDS: DULoxetine 60 MG CAP PO SCH (08:02)
[2020-10-04] MEDS: Alogliptin 25 MG TAB PO SCH (08:02)
[2020-10-04] MEDS: Pregabalin 50 MG CAP PO SCH ×3 (08:02→21:11)
[2020-10-04] MEDS: Glimepiride 2 MG TAB PO SCH (08:03)
[2020-10-04] MEDS: Vancomycin 1 GM in Premix Bag 1 BAG IVPB SCH ×3 (08:03→21:50)
[2020-10-04] MEDS: Zinc Sulfate 220 MG CAP PO SCH (08:03)
[2020-10-04] MEDS: Amlodipine 10 MG TAB PO SCH (08:03)
[2020-10-04] MEDS: Furosemide 20 MG TAB PO SCH (08:03)
[2020-10-04] MEDS: Multivit, Therapeutic 1 TAB PO SCH (08:03)
[2020-10-04] MEDS: Morphine 4 MG/ML VIAL SLOW IVP PRN (10:52)
[2020-10-04] MEDS: Lidocaine 5% Patch TD SCH (12:04)
[2020-10-04] MEDS: metFORMIN 500 MG TAB PO SCH (12:04)
[2020-10-04] MEDS: Atorvastatin Calcium 20 MG TAB PO SCH (21:12)
[2020-10-04] MEDS: Bisacodyl 10 MG SUPP PR SCH (21:13)
[2020-10-04 21:15] LABS: Vancomycin, Trough 11.2 ug/mL
[2020-10-04] MEDS: VANCOMYCIN 1.25 GM/250 ML BAG 1.25 GM in Premix Bag 1 BAG IVPB SCH (21:54)
[2020-10-04] MEDS: Transdermal Patch Removal TOP SCH (23:09)
[2020-10-05] MEDS: Morphine 4 MG/ML VIAL SLOW IVP PRN ×3 (02:30→20:35)
[2020-10-05] MEDS: Cefepime 2 GM in Sodium Chloride 0.9% 100 ML IVPB SCH ×2 (05:28→17:38)
[2020-10-05] MEDS: HumaLOG 300 UNITS/3 ML VIAL SC PRN ×2 (05:29→17:38)
[2020-10-05 06:00] LABS: #Basophils 0.1 thou/uL (0.0-0.2); #Eosinphils 0.2 thou/uL (0.0-0.7); #Lymphocytes 1.3 thou/uL (1.20-3.40); #Monocytes 0.3 thou/uL (0.11-0.59); #Neutrophils 3.5 thou/uL (1.40-6.50); %Basophils 1.2 % (0.0-1.0); %Eosinophils 3.6 % (0.0-10.0); %Neutrophils 65.2 % (42.0-75.0); Hemoglobin 12.8 g/dL (14.0-18.0); Mean Corpuscular HGB CONC 31.7 g/dL (32.0-36.0); Mean Corpuscular Hemoglobin 28.8 pg (27.0-31.0); Mean Corpuscular Volume 90.9 fL (78.0-98.0); Mean Platelet Volume 6.8 fL (7.4-10.4); Platelet Count 353 thou/uL (130-400); RBC Distribution Width 12.7 % (11.5-14.5); Red Blood Cell (RBC) Count 4.46 mill/uL (4.70-6.10); White Blood Cell (WBC) Count 5.3 thou/uL (4.8-10.8)
[2020-10-05 06:24] LABS: Anion Gap 14 mmol/L (10-20); BUN (Urea Nitrogen) 13 mg/dL (8.4-25.7); Calc. Creatinine Clearance 165 mL/min (70-130); Calcium 9.4 mg/dL (7.8-10.44); Carbon Dioxide 24 mmol/L (23-31); Chloride 102 mmol/L (98-107); Glucose 191 mg/dL (80-115); Potassium 4.3 mmol/L (3.5-5.1); Sodium 136 mmol/L (136-145)
[2020-10-05] MEDS: Polyethylene Glycol 3350 17 GM Packet PO SCH ×2 (08:11→20:39)
[2020-10-05] MEDS: Pregabalin 50 MG CAP PO SCH ×3 (08:11→20:36)
[2020-10-05] MEDS: Alogliptin 25 MG TAB PO SCH (08:12)
[2020-10-05] MEDS: Zinc Sulfate 220 MG CAP PO SCH (08:12)
[2020-10-05] MEDS: Senokot S 8.6-50 MG TAB PO SCH ×2 (08:12→20:38)
[2020-10-05] MEDS: Famotidine 20 MG TAB PO SCH ×2 (08:12→20:38)
[2020-10-05] MEDS: DULoxetine 60 MG CAP PO SCH (08:12)
[2020-10-05] MEDS: Glimepiride 2 MG TAB PO SCH (08:12)
[2020-10-05] MEDS: Saccharomyces boulardii 250 MG CAP PO SCH (08:12)
[2020-10-05] MEDS: Multivit, Therapeutic 1 TAB PO SCH (08:13)
[2020-10-05] MEDS: Furosemide 20 MG TAB PO SCH (08:13)
[2020-10-05] MEDS: Magnesium Oxide 400 MG TAB PO SCH (08:13)
[2020-10-05] MEDS: Amlodipine 10 MG TAB PO SCH (08:13)
[2020-10-05] MEDS: HYDROcodone/Acetaminophen 10/325 mg Tablet PO PRN ×2 (09:33→16:24)
[2020-10-05] MEDS: VANCOMYCIN 1.25 GM/250 ML BAG 1.25 GM in Premix Bag 1 BAG IVPB SCH ×2 (09:34→21:47)
[2020-10-05] MEDS ORDERED: Morphine 2 MG/ML VIAL SLOW IVP PRN (10:36)
[2020-10-05] MEDS: Lidocaine 5% Patch TD SCH (11:10)
[2020-10-05] MEDS: metFORMIN 500 MG TAB PO SCH (12:30)
[2020-10-05] MEDS: Bisacodyl 10 MG SUPP PR SCH (20:39)
[2020-10-05] MEDS: Atorvastatin Calcium 20 MG TAB PO SCH (20:39)
[2020-10-05] MEDS: Transdermal Patch Removal TOP SCH (22:08)
[2020-10-06] MEDS: HYDROcodone/Acetaminophen 10/325 mg Tablet PO PRN ×2 (03:56→09:50)
[2020-10-06] MEDS: Cefepime 2 GM in Sodium Chloride 0.9% 100 ML IVPB SCH (06:00)
[2020-10-06] MEDS: Famotidine 20 MG TAB PO SCH (08:01)
[2020-10-06] MEDS: Saccharomyces boulardii 250 MG CAP PO SCH (08:01)
[2020-10-06] MEDS: Glimepiride 2 MG TAB PO SCH (08:01)
[2020-10-06] MEDS: Magnesium Oxide 400 MG TAB PO SCH (08:01)
[2020-10-06] MEDS: Senokot S 8.6-50 MG TAB PO SCH (08:01)
[2020-10-06] MEDS: Polyethylene Glycol 3350 17 GM Packet PO SCH (08:01)
[2020-10-06] MEDS: Alogliptin 25 MG TAB PO SCH (08:01)
[2020-10-06] MEDS: Amlodipine 10 MG TAB PO SCH (08:02)
[2020-10-06] MEDS: Pregabalin 50 MG CAP PO SCH (08:02)
[2020-10-06] MEDS: Multivit, Therapeutic 1 TAB PO SCH (08:03)
[2020-10-06] MEDS: DULoxetine 60 MG CAP PO SCH (08:03)
[2020-10-06] MEDS: Zinc Sulfate 220 MG CAP PO SCH (08:03)
[2020-10-06] MEDS: Furosemide 20 MG TAB PO SCH (08:03)
[2020-10-06] MEDS: VANCOMYCIN 1.25 GM/250 ML BAG 1.25 GM in Premix Bag 1 BAG IVPB SCH (09:51)
[2020-10-06] MEDS: Lidocaine 5% Patch TD SCH (11:29)
[2020-10-06 11:43] VITALS: BP 126/82; TEMP 98.4
== END 2020-10-06 11:47 | disposition home or self-care (01) | DRG 552 ==
LOC: T4-A 04:08
PROVIDERS: ADMIT Internal Medicine; ATTEND Internal Medicine
PROC: 5A09357 Assistance with Respiratory Ventilation, Less than 24 Consecutive Hours, Continuous Positive Airway Pressure (ICD-10-PCS; 2020-09-26)
PROC: 009U3ZX Drainage of Spinal Canal, Percutaneous Approach, Diagnostic (ICD-10-PCS; principal; 2020-09-28)
PROC: 02HV33Z Insertion of Infusion Device into Superior Vena Cava, Percutaneous Approach (ICD-10-PCS; 2020-10-03)
PROC: B548ZZA Ultrasonography of Superior Vena Cava, Guidance (ICD-10-PCS; 2020-10-03)
PROC: B518ZZA Fluoroscopy of Superior Vena Cava, Guidance (ICD-10-PCS; 2020-10-03)
DX: M46.46 Discitis, unspecified, lumbar region (principal); Z68.42 Body mass index [BMI] 45.0-49.9, adult; E87.1 Hypo-osmolality and hyponatremia; Z20.822 Contact with and (suspected) exposure to COVID-19; M96.1 Postlaminectomy syndrome, not elsewhere classified; I10 Essential (primary) hypertension; E11.9 Type 2 diabetes mellitus without complications; G47.33 Obstructive sleep apnea (adult) (pediatric); K59.00 Constipation, unspecified; E66.01 Morbid (severe) obesity due to excess calories; G89.29 Other chronic pain; D53.9 Nutritional anemia, unspecified; D47.3 Essential (hemorrhagic) thrombocythemia; M48.062 Spinal stenosis, lumbar region with neurogenic claudication; Z88.5 Allergy status to narcotic agent; Z79.899 Other long term (current) drug therapy; Z79.84 Long term (current) use of oral hypoglycemic drugs; Z79.82 Long term (current) use of aspirin; Z98.890 Other specified postprocedural states; Z82.49 Family history of ischemic heart disease and other diseases of the circulatory system
CPT/HCPCS: 36415; 36416; 36569; 72100; 72131; 72158; 74018; 77002; 77012; 80048; 80053; 80202; 82565; 83735; 84100; 85007; 85025; 85027; 86140; 87070; 87205; 87635; 93970; A9579; C1751; J0692; J1815; J1885; J2270; J3010; J3370; J3490; U0003; U0005

== ENCOUNTER 2020-10-16 17:32 | Emergency (ER) | payer OTHER ==
[2020-10-16] MEDS ORDERED: Fentanyl 100 MCG/2 ML VIAL ONE (19:22)
[2020-10-16 19:24] LABS: #Eosinphils 0.2 thou/uL (0.0-0.7); #Lymphocytes 1.5 thou/uL (1.20-3.40); #Monocytes 0.6 thou/uL (0.11-0.59); #Neutrophils 6.8 thou/uL (1.40-6.50); %Basophils 0.5 % (0.0-1.0); %Eosinophils 2.2 % (0.0-10.0); %Monocytes 6.3 % (0.0-10.0); %Neutrophils 74.9 % (42.0-75.0); Hemoglobin 13.2 g/dL (14.0-18.0); Mean Corpuscular HGB CONC 32.9 g/dL (32.0-36.0); Mean Corpuscular Hemoglobin 28.7 pg (27.0-31.0); Mean Corpuscular Volume 87.2 fL (78.0-98.0); Mean Platelet Volume 6.6 fL (7.4-10.4); Platelet Count 428 thou/uL (130-400); RBC Distribution Width 12.7 % (11.5-14.5); Red Blood Cell (RBC) Count 4.59 mill/uL (4.70-6.10); White Blood Cell (WBC) Count 9.1 thou/uL (4.8-10.8)
[2020-10-16 19:46] LABS: ALT (SGPT) 23 U/L (8-55); AST (SGOT) 20 U/L (5-34); Alkaline Phosphatase 75 U/L (40-110); Anion Gap 14 mmol/L (10-20); BUN (Urea Nitrogen) 11 mg/dL (8.4-25.7); Bilirubin, Total 0.3 mg/dL (0.2-1.2); Calc. Creatinine Clearance 0 mL/min (70-130); Calcium 9.6 mg/dL (7.8-10.44); Carbon Dioxide 25 mmol/L (23-31); Chloride 103 mmol/L (98-107); Globulin 3.7 g/dL (2.4-3.5); Glucose 135 mg/dL (80-115); Potassium 4.1 mmol/L (3.5-5.1); Protein, Total 7.7 g/dL (5.8-8.1); Sodium 138 mmol/L (136-145)
[2020-10-16] MEDS ORDERED: Vancomycin 1 GM/200 ML BAG ONE (20:25)
[2020-10-16] MEDS ORDERED: HYDROmorphone 0.5 MG/0.5 ML SYRINGE ONE (20:25)
[2020-10-16] MEDS ORDERED: Activase 2 MG VIAL CATH SCH (20:30)
[2020-10-16] MEDS ORDERED: Sterile Water 10 ML VIAL IVP SCH (20:30)
== END 2020-10-16 23:10 | disposition home or self-care (01) ==
LOC: ERS 17:32
DX: M79.89 Other specified soft tissue disorders (principal); E11.9 Type 2 diabetes mellitus without complications; E78.5 Hyperlipidemia, unspecified; I10 Essential (primary) hypertension; Z79.899 Other long term (current) drug therapy; Z79.82 Long term (current) use of aspirin; Z79.84 Long term (current) use of oral hypoglycemic drugs
CPT/HCPCS: 71045; 80053; 84484; 85025; 93005; 94760; 96365; 96366; 96375; J1170; J2997; J3010; J3370

== ENCOUNTER 2020-11-02 13:22 | Emergency (ER) | payer OTHER ==
[2020-11-02] MEDS ORDERED: Ondansetron PF 4 MG/2 ML Vial ONE (15:11)
[2020-11-02] MEDS ORDERED: Morphine 4 MG/ML VIAL ONE (15:11)
[2020-11-02] MEDS ORDERED: Fentanyl 100 MCG/2 ML VIAL ONE (16:41)
== END 2020-11-02 17:17 | disposition home or self-care (01) ==
LOC: ERS 13:22
DX: M54.5 Low back pain (principal); Z79.899 Other long term (current) drug therapy; Z79.01 Long term (current) use of anticoagulants; E11.9 Type 2 diabetes mellitus without complications; I10 Essential (primary) hypertension
CPT/HCPCS: 96372; 96374; J2270; J2405; J3010

== ENCOUNTER 2020-11-07 15:30 | Emergency (ER) | payer OTHER ==
[2020-11-07] MEDS ORDERED: Ketorolac Tromethamine 30 MG/ML VIAL ONE (16:35)
[2020-11-07] MEDS ORDERED: Morphine 4 MG/ML VIAL ONE (16:35)
== END 2020-11-07 17:25 | disposition left against medical advice (07) ==
LOC: ERS 15:30
DX: M54.5 Low back pain (principal); E11.9 Type 2 diabetes mellitus without complications; E78.5 Hyperlipidemia, unspecified; I10 Essential (primary) hypertension; M86.9 Osteomyelitis, unspecified; Z79.82 Long term (current) use of aspirin; Z79.84 Long term (current) use of oral hypoglycemic drugs; Z79.899 Other long term (current) drug therapy
CPT/HCPCS: 80053; 80202; 85025; 96374; 96375; J1885; J2270

== ENCOUNTER 2020-11-17 08:45 | Emergency (ER) | payer OTHER ==
[2020-11-17] MEDS ORDERED: Fluorescein Opthalmic Strip ONE (09:38)
[2020-11-17] MEDS ORDERED: Proparacaine 0.5% Opth 15 ML BOT ONE (09:45)
== END 2020-11-17 11:05 | disposition home or self-care (01) ==
LOC: ERS 08:45
DX: H57.13 Ocular pain, bilateral (principal); E11.9 Type 2 diabetes mellitus without complications; E78.5 Hyperlipidemia, unspecified; I10 Essential (primary) hypertension; M86.9 Osteomyelitis, unspecified
CPT/HCPCS: 99283

== ENCOUNTER 2020-11-21 10:52 | Inpatient (IN) | payer OTHER ==
[~2020-11-21 10:52] MED LIST: Magnevist 469MG/ML 20 ML VIAL ONE
[2020-11-21 11:50] LABS: #Lymphocytes 1.3 thou/uL (1.20-3.40); #Monocytes 0.9 thou/uL (0.11-0.59); #Neutrophils 10.4 thou/uL (1.40-6.50); %Basophils 0.2 % (0.0-1.0); %Eosinophils 0.3 % (0.0-10.0); %Lymphocytes 10.4 % (21.0-51.0); %Neutrophils 82.2 % (42.0-75.0); Hemoglobin 9.4 g/dL (14.0-18.0); Mean Corpuscular HGB CONC 32.6 g/dL (32.0-36.0); Mean Corpuscular Hemoglobin 27.3 pg (27.0-31.0); Mean Corpuscular Volume 83.7 fL (78.0-98.0); Mean Platelet Volume 6.7 fL (7.4-10.4); Platelet Count 794 thou/uL (130-400); RBC Distribution Width 14.9 % (11.5-14.5); Red Blood Cell (RBC) Count 3.45 mill/uL (4.70-6.10); White Blood Cell (WBC) Count 12.7 thou/uL (4.8-10.8)
[2020-11-21] MEDS ORDERED: Morphine 4 MG/ML VIAL ONE ×2 (11:57→14:16)
[2020-11-21 12:09] LABS: ALT (SGPT) 63 U/L (8-55); AST (SGOT) 24 U/L (5-34); Albumin 3.5 g/dL (3.4-4.8); Alkaline Phosphatase 173 U/L (40-110); Anion Gap 18 mmol/L (10-20); BUN (Urea Nitrogen) 21 mg/dL (8.4-25.7); Bilirubin, Total 0.4 mg/dL (0.2-1.2); Calc. Creatinine Clearance 0 mL/min (70-130); Calcium 8.9 mg/dL (7.8-10.44); Carbon Dioxide 16 mmol/L (23-31); Chloride 103 mmol/L (98-107); Globulin 3.3 g/dL (2.4-3.5); Glucose 248 mg/dL (80-115); Potassium 4.4 mmol/L (3.5-5.1); Protein, Total 6.8 g/dL (5.8-8.1); Sodium 133 mmol/L (136-145)
[2020-11-21] MEDS ORDERED: Heparin 1,000 UNITS/ML VIAL ONE (12:10)
[2020-11-21 12:21] LABS: Band 3 % (5-11); Lymphocytes 5 % (21-51); MDiff Complete? YES; Monocytes 6 % (0-10); Neutrophil 86 % (42-75); Nucleated RBC 1 % (0); Polychromasia SLIGHT = 2-3 cells (100X) (0-2/hpf)
[2020-11-21 14:49] LABS: Bilirubin Negative (Negative); Blood, Urine 2+ (Negative); Clarity Clear (Clear); Glucose, Urine (Dipstick) Normal (Negative); Ketone, Urine Negative (Negative); Leukocyte Negative Leu/uL (Negative); Nitrite Negative (Negative); Protein, Urine (Dipstick) 30 mg/dL (Neg-Trace); RBC/HPF 0-3 HPF (0-3); Squamous Epithelial None Seen HPF (0-3); Urobilinogen Normal mg/dL (Less than 2); WBC/HPF 0-3 HPF (0-3); pH, Urine 5.5 (5.0-9.0)
[2020-11-21 14:50] LABS: Bacteria/HPF 1+ HPF (None Seen)
[2020-11-21] MEDS ORDERED: Fluticasone Propionate Nasal Spray 16 gm Bottle NASAL PRN (14:57)
[2020-11-21] MEDS ORDERED: Dextrose 50% Abboject 50 ML SYRINGE SLOW IVP PRN (15:14)
[2020-11-21] MEDS ORDERED: Dextrose 5% in Water 1,000 ML IV PRN (15:14)
[2020-11-21] MEDS ORDERED: HumaLOG 300 UNITS/3 ML VIAL SC PRN (15:14)
[2020-11-21] MEDS: Sodium Chloride 0.9% 1,000 ML IV SCH (16:06)
[2020-11-21 16:31] VITALS: BMI 45.6
[2020-11-21 16:39] LABS: Lactic Acid 1.9 mmol/L (0.5-2.2)
[2020-11-21] MEDS ORDERED: traMADol HCl 50 MG TAB PO PRN (16:49)
[2020-11-21] MEDS: HumaLOG 300 UNITS/3 ML VIAL SC PRN (17:43)
[2020-11-21 18:06] LABS: Bilirubin Negative (Negative); Blood, Urine 2+ (Negative); Clarity Clear (Clear); Glucose, Urine (Dipstick) Normal (Negative); Ketone, Urine Negative (Negative); Leukocyte Negative Leu/uL (Negative); Nitrite Negative (Negative); Protein, Urine (Dipstick) 20 mg/dL (Neg-Trace); Specific Gravity, Urine 1.007 (1.002-1.036); Squamous Epithelial None Seen HPF (0-3); Urobilinogen Normal mg/dL (Less than 2); WBC/HPF 0-3 HPF (0-3); pH, Urine 5.5 (5.0-9.0)
[2020-11-21 18:07] LABS: Bacteria/HPF 1+ HPF (None Seen)
[2020-11-21 18:30] LABS: Creatinine, Urine 37.45 mg/dL (63-166)
[2020-11-21] MEDS: Acetaminophen 325 MG TAB PO PRN (20:57)
[2020-11-21] MEDS: Sodium Bicarbonate Tab 325 MG TAB PO SCH (20:58)
[2020-11-21] MEDS: Apixaban 5 MG TAB PO SCH (20:58)
[2020-11-21] MEDS: oxyCODONE/Acetaminophen 5 mg/325 mg Tablet PO PRN (20:58)
[2020-11-21] MEDS: Pregabalin 50 MG CAP PO SCH (20:58)
[2020-11-21] MEDS: Famotidine 20 MG TAB PO SCH (20:58)
[2020-11-21] MEDS ORDERED: Atorvastatin Calcium 20 MG TAB PO SCH (21:00)
[2020-11-21] MEDS ORDERED: Pregabalin 50 MG CAP PO SCH (21:00)
[2020-11-22] MEDS: Sodium Chloride 0.9% 1,000 ML IV SCH ×4 (02:00→22:04)
[2020-11-22] MEDS: oxyCODONE/Acetaminophen 5 mg/325 mg Tablet PO PRN ×5 (03:53→21:34)
[2020-11-22] MEDS: Ketorolac Tromethamine 30 MG/ML VIAL IVP PRN ×3 (05:18→23:03)
[2020-11-22] MEDS: HumaLOG 300 UNITS/3 ML VIAL SC PRN ×3 (05:20→17:06)
[2020-11-22 08:30] LABS: Anion Gap 17 mmol/L (10-20); BUN (Urea Nitrogen) 17 mg/dL (8.4-25.7); Calc. Creatinine Clearance 82 mL/min (70-130); Calcium 9.4 mg/dL (7.8-10.44); Carbon Dioxide 17 mmol/L (23-31); Chloride 106 mmol/L (98-107); Glucose 200 mg/dL (80-115); Potassium 3.8 mmol/L (3.5-5.1); Sodium 136 mmol/L (136-145)
[2020-11-22] MEDS: Pregabalin 50 MG CAP PO SCH ×3 (08:38→20:15)
[2020-11-22] MEDS: DULoxetine 60 MG CAP PO SCH (08:38)
[2020-11-22] MEDS: Amlodipine 10 MG TAB PO SCH (08:40)
[2020-11-22] MEDS: Sodium Bicarbonate Tab 325 MG TAB PO SCH ×2 (08:40→20:14)
[2020-11-22] MEDS: Apixaban 5 MG TAB PO SCH ×2 (08:40→20:14)
[2020-11-22] MEDS: Saccharomyces boulardii 250 MG CAP PO SCH (08:40)
[2020-11-22 08:50] LABS: #Lymphocytes 1.3 thou/uL (1.20-3.40); #Monocytes 0.7 thou/uL (0.11-0.59); #Neutrophils 7.8 thou/uL (1.40-6.50); %Basophils 0.3 % (0.0-1.0); %Eosinophils 0.3 % (0.0-10.0); %Lymphocytes 13.2 % (21.0-51.0); %Monocytes 6.8 % (0.0-10.0); %Neutrophils 79.4 % (42.0-75.0); Hemoglobin 9.7 g/dL (14.0-18.0); Mean Corpuscular HGB CONC 31.4 g/dL (32.0-36.0); Mean Corpuscular Hemoglobin 26.7 pg (27.0-31.0); Mean Corpuscular Volume 85.2 fL (78.0-98.0); Mean Platelet Volume 6.7 fL (7.4-10.4); Platelet Count 815 thou/uL (130-400); RBC Distribution Width 14.9 % (11.5-14.5); Red Blood Cell (RBC) Count 3.64 mill/uL (4.70-6.10); White Blood Cell (WBC) Count 9.9 thou/uL (4.8-10.8)
[2020-11-22] MEDS: Alogliptin 25 MG TAB PO SCH (10:06)
[2020-11-22] MEDS: Famotidine 20 MG TAB PO SCH (20:14)
[2020-11-22] MEDS ORDERED: MEROPENEM 1 GM/50 ML 1 GM in Premix Bag 1 BAG IVPB SCH (21:00)
[2020-11-22] MEDS ORDERED: Meropenem 1 GM in Sodium Chloride 0.9% 100 ML IVPB SCH (21:00)
[2020-11-23 06:07] LABS: #Lymphocytes 1.3 thou/uL (1.20-3.40); #Monocytes 0.6 thou/uL (0.11-0.59); #Neutrophils 4.2 thou/uL (1.40-6.50); %Basophils 0.3 % (0.0-1.0); %Eosinophils 0.4 % (0.0-10.0); %Lymphocytes 21.7 % (21.0-51.0); %Monocytes 9.4 % (0.0-10.0); %Neutrophils 68.2 % (42.0-75.0); Hemoglobin 8.7 g/dL (14.0-18.0); Mean Corpuscular HGB CONC 32.8 g/dL (32.0-36.0); Mean Corpuscular Hemoglobin 27.7 pg (27.0-31.0); Mean Corpuscular Volume 84.4 fL (78.0-98.0); Mean Platelet Volume 6.4 fL (7.4-10.4); Platelet Count 780 thou/uL (130-400); RBC Distribution Width 14.7 % (11.5-14.5); Red Blood Cell (RBC) Count 3.15 mill/uL (4.70-6.10); White Blood Cell (WBC) Count 6.1 thou/uL (4.8-10.8)
[2020-11-23 06:26] LABS: Anion Gap 16 mmol/L (10-20); BUN (Urea Nitrogen) 16 mg/dL (8.4-25.7); Calc. Creatinine Clearance 91 mL/min (70-130); Calcium 8.7 mg/dL (7.8-10.44); Carbon Dioxide 16 mmol/L (23-31); Chloride 109 mmol/L (98-107); Glucose 172 mg/dL (80-115); Potassium 3.7 mmol/L (3.5-5.1); Sodium 137 mmol/L (136-145)
[2020-11-23] MEDS: Sodium Bicarbonate Tab 325 MG TAB PO SCH ×2 (08:24→20:41)
[2020-11-23] MEDS: Apixaban 5 MG TAB PO SCH ×2 (08:25→20:43)
[2020-11-23] MEDS: DULoxetine 60 MG CAP PO SCH (08:25)
[2020-11-23] MEDS: Saccharomyces boulardii 250 MG CAP PO SCH (08:25)
[2020-11-23] MEDS: Pregabalin 50 MG CAP PO SCH ×3 (08:25→20:42)
[2020-11-23] MEDS: Amlodipine 10 MG TAB PO SCH (08:25)
[2020-11-23] MEDS: oxyCODONE/Acetaminophen 5 mg/325 mg Tablet PO PRN ×2 (08:26→15:15)
[2020-11-23] MEDS ORDERED: MEROPENEM 1 GM/50 ML 1 GM in Premix Bag 1 BAG IVPB SCH (09:00)
[2020-11-23] MEDS: Ketorolac Tromethamine 30 MG/ML VIAL IVP PRN ×2 (11:27→20:46)
[2020-11-23] MEDS: Alogliptin 25 MG TAB PO SCH (11:28)
[2020-11-23] MEDS: Sodium Chloride 0.9% 1,000 ML IV SCH ×2 (15:16→20:40)
[2020-11-23] MEDS: MEROPENEM 1 GM/50 ML 1 GM in Premix Bag 1 BAG IVPB SCH (17:47)
[2020-11-23] MEDS: Famotidine 20 MG TAB PO SCH (20:43)
[2020-11-24] MEDS: MEROPENEM 1 GM/50 ML 1 GM in Premix Bag 1 BAG IVPB SCH ×3 (00:45→16:54)
[2020-11-24] MEDS: oxyCODONE/Acetaminophen 5 mg/325 mg Tablet PO PRN ×4 (01:41→22:30)
[2020-11-24] MEDS: Ketorolac Tromethamine 30 MG/ML VIAL IVP PRN ×3 (04:12→20:30)
[2020-11-24] MEDS: Sodium Chloride 0.9% 1,000 ML IV SCH ×4 (04:25→23:24)
[2020-11-24] MEDS ORDERED: hydrALAZINE 20 MG/ML VIAL SLOW IVP PRN (05:33)
[2020-11-24 05:59] LABS: #Lymphocytes 1.5 thou/uL (1.20-3.40); #Monocytes 0.4 thou/uL (0.11-0.59); #Neutrophils 4.1 thou/uL (1.40-6.50); %Basophils 0.2 % (0.0-1.0); %Eosinophils 0.5 % (0.0-10.0); %Lymphocytes 25.1 % (21.0-51.0); %Monocytes 7.2 % (0.0-10.0); %Neutrophils 67.1 % (42.0-75.0); Hemoglobin 8.8 g/dL (14.0-18.0); Mean Corpuscular HGB CONC 32.2 g/dL (32.0-36.0); Mean Corpuscular Hemoglobin 27.1 pg (27.0-31.0); Mean Platelet Volume 6.5 fL (7.4-10.4); Platelet Count 788 thou/uL (130-400); RBC Distribution Width 15.1 % (11.5-14.5); Red Blood Cell (RBC) Count 3.25 mill/uL (4.70-6.10); White Blood Cell (WBC) Count 6.1 thou/uL (4.8-10.8)
[2020-11-24 06:11] LABS: Anion Gap 16 mmol/L (10-20); BUN (Urea Nitrogen) 12 mg/dL (8.4-25.7); Calc. Creatinine Clearance 107 mL/min (70-130); Calcium 8.7 mg/dL (7.8-10.44); Carbon Dioxide 15 mmol/L (23-31); Chloride 109 mmol/L (98-107); Glucose 172 mg/dL (80-115); Potassium 3.8 mmol/L (3.5-5.1); Sodium 136 mmol/L (136-145)
[2020-11-24] MEDS: DULoxetine 60 MG CAP PO SCH (10:02)
[2020-11-24] MEDS: Saccharomyces boulardii 250 MG CAP PO SCH (10:02)
[2020-11-24] MEDS: Sodium Bicarbonate Tab 325 MG TAB PO SCH ×2 (10:02→20:31)
[2020-11-24] MEDS: Apixaban 5 MG TAB PO SCH ×2 (10:03→20:32)
[2020-11-24] MEDS: Pregabalin 50 MG CAP PO SCH ×3 (10:03→20:31)
[2020-11-24] MEDS: Amlodipine 10 MG TAB PO SCH (10:03)
[2020-11-24] MEDS: Alogliptin 25 MG TAB PO SCH (11:32)
[2020-11-24] MEDS ORDERED: Polyethylene Glycol 3350 17 GM Packet PO PRN (14:11)
[2020-11-24] MEDS: Docusate 100 MG CAP PO PRN (15:09)
[2020-11-24] MEDS: Famotidine 20 MG TAB PO SCH (20:32)
[2020-11-25] MEDS: Sodium Chloride 0.9% 1,000 ML IV SCH ×3 (00:47→13:50)
[2020-11-25] MEDS: MEROPENEM 1 GM/50 ML 1 GM in Premix Bag 1 BAG IVPB SCH ×3 (01:17→17:06)
[2020-11-25] MEDS: Ketorolac Tromethamine 30 MG/ML VIAL IVP PRN ×2 (05:09→13:45)
[2020-11-25] MEDS: oxyCODONE/Acetaminophen 5 mg/325 mg Tablet PO PRN ×4 (06:27→18:50)
[2020-11-25 06:56] LABS: Anion Gap 14 mmol/L (10-20); BUN (Urea Nitrogen) 11 mg/dL (8.4-25.7); Calc. Creatinine Clearance 105 mL/min (70-130); Calcium 8.6 mg/dL (7.8-10.44); Carbon Dioxide 22 mmol/L (23-31); Chloride 108 mmol/L (98-107); Glucose 164 mg/dL (80-115); Potassium 3.5 mmol/L (3.5-5.1); Sodium 140 mmol/L (136-145)
[2020-11-25] MEDS: Sodium Bicarbonate Tab 325 MG TAB PO SCH ×2 (08:18→21:55)
[2020-11-25] MEDS: Amlodipine 10 MG TAB PO SCH (08:18)
[2020-11-25] MEDS: Saccharomyces boulardii 250 MG CAP PO SCH (08:18)
[2020-11-25] MEDS: DULoxetine 60 MG CAP PO SCH (08:18)
[2020-11-25] MEDS: Pregabalin 50 MG CAP PO SCH ×3 (08:19→21:55)
[2020-11-25] MEDS: Apixaban 5 MG TAB PO SCH ×2 (08:19→21:55)
[2020-11-25] MEDS: Docusate 100 MG CAP PO PRN (08:20)
[2020-11-25] MEDS: Alogliptin 25 MG TAB PO SCH (10:18)
[2020-11-25] MEDS: Lidocaine 5% Patch TD SCH (20:37)
[2020-11-25] MEDS: Cyclobenzaprine 10 MG TAB PO PRN (20:44)
[2020-11-25] MEDS: Famotidine 20 MG TAB PO SCH (21:55)
[2020-11-26] MEDS: oxyCODONE/Acetaminophen 5 mg/325 mg Tablet PO PRN ×3 (00:03→12:38)
[2020-11-26] MEDS: MEROPENEM 1 GM/50 ML 1 GM in Premix Bag 1 BAG IVPB SCH ×3 (01:50→17:11)
[2020-11-26] MEDS: Sodium Chloride 0.9% 1,000 ML IV SCH (03:32)
[2020-11-26 06:06] LABS: Hemoglobin 9.4 g/dL (14.0-18.0); Platelet Count 851 thou/uL (130-400)
[2020-11-26 06:25] LABS: Anion Gap 15 mmol/L (10-20); BUN (Urea Nitrogen) 9 mg/dL (8.4-25.7); Calc. Creatinine Clearance 124 mL/min (70-130); Calcium 8.7 mg/dL (7.8-10.44); Carbon Dioxide 21 mmol/L (23-31); Chloride 109 mmol/L (98-107); Glucose 157 mg/dL (80-115); Potassium 3.7 mmol/L (3.5-5.1); Sodium 141 mmol/L (136-145)
[2020-11-26] MEDS: Ketorolac Tromethamine 30 MG/ML VIAL IVP PRN ×3 (07:54→20:39)
[2020-11-26] MEDS: Saccharomyces boulardii 250 MG CAP PO SCH (07:55)
[2020-11-26] MEDS: Pregabalin 50 MG CAP PO SCH ×3 (07:55→20:37)
[2020-11-26] MEDS: Sodium Bicarbonate Tab 325 MG TAB PO SCH ×2 (07:55→20:37)
[2020-11-26] MEDS: DULoxetine 60 MG CAP PO SCH (07:55)
[2020-11-26] MEDS: Cyclobenzaprine 10 MG TAB PO PRN (07:55)
[2020-11-26] MEDS: Apixaban 5 MG TAB PO SCH ×2 (07:56→20:38)
[2020-11-26] MEDS: Amlodipine 10 MG TAB PO SCH (07:56)
[2020-11-26] MEDS: Transdermal Patch Removal TOP SCH (08:03)
[2020-11-26] MEDS: Docusate 100 MG CAP PO PRN (08:43)
[2020-11-26] MEDS: Alogliptin 25 MG TAB PO SCH (08:43)
[2020-11-26] MEDS: Lidocaine 5% Patch TD SCH (20:37)
[2020-11-26] MEDS: Famotidine 20 MG TAB PO SCH (20:39)
[2020-11-27] MEDS: MEROPENEM 1 GM/50 ML 1 GM in Premix Bag 1 BAG IVPB SCH ×3 (01:28→17:17)
[2020-11-27 05:56] LABS: Anion Gap 14 mmol/L (10-20); BUN (Urea Nitrogen) 8 mg/dL (8.4-25.7); Calc. Creatinine Clearance 126 mL/min (70-130); Calcium 8.7 mg/dL (7.8-10.44); Carbon Dioxide 24 mmol/L (23-31); Chloride 106 mmol/L (98-107); Glucose 167 mg/dL (80-115); Potassium 3.5 mmol/L (3.5-5.1); Sodium 140 mmol/L (136-145)
[2020-11-27] MEDS: oxyCODONE/Acetaminophen 5 mg/325 mg Tablet PO PRN (06:41)
[2020-11-27] MEDS: Cyclobenzaprine 10 MG TAB PO PRN (08:35)
[2020-11-27] MEDS: Saccharomyces boulardii 250 MG CAP PO SCH (08:36)
[2020-11-27] MEDS: Apixaban 5 MG TAB PO SCH ×2 (08:36→20:48)
[2020-11-27] MEDS: Amlodipine 10 MG TAB PO SCH (08:36)
[2020-11-27] MEDS: Pregabalin 50 MG CAP PO SCH ×3 (08:36→20:47)
[2020-11-27] MEDS: DULoxetine 60 MG CAP PO SCH (08:36)
[2020-11-27] MEDS: Sodium Bicarbonate Tab 325 MG TAB PO SCH ×2 (08:36→20:47)
[2020-11-27] MEDS: Acetaminophen 325 MG TAB PO PRN (08:39)
[2020-11-27] MEDS: Alogliptin 25 MG TAB PO SCH (09:18)
[2020-11-27] MEDS: Transdermal Patch Removal TOP SCH (09:19)
[2020-11-27] MEDS: HYDROcodone/Acetaminophen 10/325 mg Tablet PO PRN ×3 (11:21→21:32)
[2020-11-27] MEDS: Famotidine 20 MG TAB PO SCH (20:47)
[2020-11-27] MEDS: Lidocaine 5% Patch TD SCH (20:55)
[2020-11-28] MEDS: MEROPENEM 1 GM/50 ML 1 GM in Premix Bag 1 BAG IVPB SCH ×3 (00:27→17:09)
[2020-11-28] MEDS: Ketorolac Tromethamine 30 MG/ML VIAL IVP PRN ×3 (05:28→19:46)
[2020-11-28 06:05] LABS: Anion Gap 15 mmol/L (10-20); BUN (Urea Nitrogen) 8 mg/dL (8.4-25.7); Calc. Creatinine Clearance 124 mL/min (70-130); Calcium 8.7 mg/dL (7.8-10.44); Carbon Dioxide 25 mmol/L (23-31); Chloride 103 mmol/L (98-107); Glucose 154 mg/dL (80-115); Potassium 3.5 mmol/L (3.5-5.1); Sodium 139 mmol/L (136-145)
[2020-11-28] MEDS: Pregabalin 50 MG CAP PO SCH ×3 (08:11→21:23)
[2020-11-28] MEDS: Sodium Bicarbonate Tab 325 MG TAB PO SCH ×2 (08:11→21:23)
[2020-11-28] MEDS: DULoxetine 60 MG CAP PO SCH (08:11)
[2020-11-28] MEDS: Amlodipine 10 MG TAB PO SCH (08:12)
[2020-11-28] MEDS: HYDROcodone/Acetaminophen 10/325 mg Tablet PO PRN ×3 (08:12→21:21)
[2020-11-28] MEDS: Saccharomyces boulardii 250 MG CAP PO SCH (08:12)
[2020-11-28] MEDS: Apixaban 5 MG TAB PO SCH ×2 (08:12→21:23)
[2020-11-28] MEDS: Transdermal Patch Removal TOP SCH (08:13)
[2020-11-28] MEDS: Alogliptin 25 MG TAB PO SCH (09:26)
[2020-11-28] MEDS: Lidocaine 5% Patch TD SCH (20:56)
[2020-11-28] MEDS: Cyclobenzaprine 10 MG TAB PO PRN (21:21)
[2020-11-28] MEDS: Famotidine 20 MG TAB PO SCH (21:23)
[2020-11-29] MEDS: MEROPENEM 1 GM/50 ML 1 GM in Premix Bag 1 BAG IVPB SCH ×3 (00:17→16:47)
[2020-11-29] MEDS: Transdermal Patch Removal TOP SCH (08:35)
[2020-11-29] MEDS: Sodium Bicarbonate Tab 325 MG TAB PO SCH ×2 (08:36→20:44)
[2020-11-29] MEDS: Saccharomyces boulardii 250 MG CAP PO SCH (08:36)
[2020-11-29] MEDS: DULoxetine 60 MG CAP PO SCH (08:37)
[2020-11-29] MEDS: Pregabalin 50 MG CAP PO SCH ×3 (08:37→20:45)
[2020-11-29] MEDS: Apixaban 5 MG TAB PO SCH ×2 (08:37→20:44)
[2020-11-29] MEDS: Amlodipine 10 MG TAB PO SCH (08:37)
[2020-11-29] MEDS: HYDROcodone/Acetaminophen 10/325 mg Tablet PO PRN ×2 (08:38→20:46)
[2020-11-29] MEDS: Cyclobenzaprine 10 MG TAB PO PRN (08:38)
[2020-11-29] MEDS: Alogliptin 25 MG TAB PO SCH (08:43)
[2020-11-29] MEDS: HumaLOG 300 UNITS/3 ML VIAL SC PRN (13:52)
[2020-11-29] MEDS: Ketorolac Tromethamine 30 MG/ML VIAL IVP PRN (15:31)
[2020-11-29] MEDS: Lidocaine 5% Patch TD SCH (20:42)
[2020-11-29] MEDS: Famotidine 20 MG TAB PO SCH (20:45)
[2020-11-30] MEDS: MEROPENEM 1 GM/50 ML 1 GM in Premix Bag 1 BAG IVPB SCH ×3 (00:08→16:43)
[2020-11-30] MEDS: Ketorolac Tromethamine 30 MG/ML VIAL IVP PRN (04:41)
[2020-11-30] MEDS: HYDROcodone/Acetaminophen 10/325 mg Tablet PO PRN ×3 (08:40→19:39)
[2020-11-30] MEDS: Pregabalin 50 MG CAP PO SCH ×3 (08:41→23:06)
[2020-11-30] MEDS: Saccharomyces boulardii 250 MG CAP PO SCH (08:42)
[2020-11-30] MEDS: Apixaban 5 MG TAB PO SCH ×2 (08:42→23:06)
[2020-11-30] MEDS: Sodium Bicarbonate Tab 325 MG TAB PO SCH ×2 (08:42→23:07)
[2020-11-30] MEDS: Amlodipine 10 MG TAB PO SCH (08:42)
[2020-11-30] MEDS: DULoxetine 60 MG CAP PO SCH (08:42)
[2020-11-30] MEDS: Transdermal Patch Removal TOP SCH (08:50)
[2020-11-30] MEDS: Alogliptin 25 MG TAB PO SCH (10:36)
[2020-11-30] MEDS: HumaLOG 300 UNITS/3 ML VIAL SC PRN (11:56)
[2020-11-30] MEDS: Famotidine 20 MG TAB PO SCH (23:06)
[2020-11-30] MEDS: Lidocaine 5% Patch TD SCH (23:12)
[2020-12-01] MEDS: HYDROcodone/Acetaminophen 10/325 mg Tablet PO PRN ×3 (00:33→13:25)
[2020-12-01] MEDS: MEROPENEM 1 GM/50 ML 1 GM in Premix Bag 1 BAG IVPB SCH ×3 (00:35→17:17)
[2020-12-01 05:36] LABS: Cardiac Risk 4.7 (Less than 4.5)
[2020-12-01] MEDS: Transdermal Patch Removal TOP SCH (07:59)
[2020-12-01] MEDS ORDERED: Aspirin 81 mg Enteric Coated Tablet PO SCH ×2 (08:45→09:00)
[2020-12-01 09:12] LABS: Hemoglobin 10.2 g/dL (14.0-18.0); Mean Corpuscular HGB CONC 31.1 g/dL (32.0-36.0); Mean Corpuscular Hemoglobin 26.8 pg (27.0-31.0); Mean Corpuscular Volume 86.1 fL (78.0-98.0); Mean Platelet Volume 6.2 fL (7.4-10.4); Platelet Count 508 thou/uL (130-400); RBC Distribution Width 15.7 % (11.5-14.5); Red Blood Cell (RBC) Count 3.81 mill/uL (4.70-6.10); White Blood Cell (WBC) Count 4.4 thou/uL (4.8-10.8)
[2020-12-01 09:18] LABS: Hemoglobin A1c 6.6 % (4.0-6.0)
[2020-12-01 09:32] LABS: ALT (SGPT) 29 U/L (8-55); AST (SGOT) 31 U/L (5-34); Albumin 3.5 g/dL (3.4-4.8); Alkaline Phosphatase 98 U/L (40-110); Anion Gap 11 mmol/L (10-20); BUN (Urea Nitrogen) 8 mg/dL (8.4-25.7); Calc. Creatinine Clearance 136 mL/min (70-130); Calcium 9.1 mg/dL (7.8-10.44); Carbon Dioxide 33 mmol/L (23-31); Chloride 99 mmol/L (98-107); Globulin 3.8 g/dL (2.4-3.5); Glucose 160 mg/dL (80-115); Protein, Total 7.3 g/dL (5.8-8.1); Sodium 139 mmol/L (136-145)
[2020-12-01] MEDS: Pregabalin 50 MG CAP PO SCH ×2 (10:12→17:00)
[2020-12-01] MEDS: Saccharomyces boulardii 250 MG CAP PO SCH (10:12)
[2020-12-01] MEDS: Apixaban 5 MG TAB PO SCH (10:14)
[2020-12-01] MEDS: DULoxetine 60 MG CAP PO SCH (10:14)
[2020-12-01] MEDS: Sodium Bicarbonate Tab 325 MG TAB PO SCH (10:15)
[2020-12-01] MEDS: Amlodipine 10 MG TAB PO SCH (10:15)
[2020-12-01] MEDS: Alogliptin 25 MG TAB PO SCH (10:19)
[2020-12-01] MEDS: HumaLOG 300 UNITS/3 ML VIAL SC PRN (11:49)
[2020-12-01 16:12] VITALS: BP 145/77; TEMP 98.3
== END 2020-12-01 17:17 | disposition home health service (06) | DRG 314 ==
LOC: ERS 10:52 → T4-A 14:33 → 2SW 12-01 00:13
PROVIDERS: ADMIT Family Medicine; ATTEND Internal Medicine
PROC: 02HV33Z Insertion of Infusion Device into Superior Vena Cava, Percutaneous Approach (ICD-10-PCS; principal; 2020-11-21)
PROC: B518ZZA Fluoroscopy of Superior Vena Cava, Guidance (ICD-10-PCS; 2020-11-21)
DX: T82.868A Thrombosis due to vascular prosthetic devices, implants and grafts, initial encounter (principal); A41.9 Sepsis, unspecified organism; G06.1 Intraspinal abscess and granuloma; T82.524A Displacement of infusion catheter, initial encounter; N17.9 Acute kidney failure, unspecified; I82.B12 Acute embolism and thrombosis of left subclavian vein; E87.2 Acidosis; Z68.42 Body mass index [BMI] 45.0-49.9, adult; Z23 Encounter for immunization; M46.46 Discitis, unspecified, lumbar region; E78.5 Hyperlipidemia, unspecified; I10 Essential (primary) hypertension; E11.9 Type 2 diabetes mellitus without complications; G89.29 Other chronic pain; F41.9 Anxiety disorder, unspecified; G47.33 Obstructive sleep apnea (adult) (pediatric); E66.01 Morbid (severe) obesity due to excess calories; Z96.642 Presence of left artificial hip joint; Y84.8 Other medical procedures as the cause of abnormal reaction of the patient, or of later complication, without mention of misadventure at the time of the procedure; G51.0 Bell's palsy; R13.10 Dysphagia, unspecified; Z86.718 Personal history of other venous thrombosis and embolism; Z88.5 Allergy status to narcotic agent; Z79.899 Other long term (current) drug therapy; Z79.84 Long term (current) use of oral hypoglycemic drugs; Z79.82 Long term (current) use of aspirin; Z79.01 Long term (current) use of anticoagulants; Z98.890 Other specified postprocedural states
CPT/HCPCS: 36415; 36416; 36584; 70450; 70551; 71045; 72158; 76770; 80048; 80053; 80061; 80202; 81003; 81015; 82550; 82570; 83036; 83605; 84300; 84443; 84484; 85014; 85018; 85025; 85027; 85049; 86140; 87086; 90471; 90732; 93005; 93306; 93880; 96374; 96376; A9579; C1751; G0009; J0878; J1644; J1815; J1885; J2185; J2270; J3490

== ENCOUNTER 2021-02-27 11:49 | Inpatient (IN) | payer OTHER ==
[2021-02-27 12:45] VITALS: BMI 47.9
[2021-02-27 13:41] LABS: #Basophils 0.1 thou/uL (0.0-0.2); #Eosinphils 0.1 thou/uL (0.0-0.7); #Lymphocytes 1.7 thou/uL (1.20-3.40); #Monocytes 0.4 thou/uL (0.11-0.59); #Neutrophils 3.8 thou/uL (1.40-6.50); %Basophils 0.9 % (0.0-1.0); %Eosinophils 2.1 % (0.0-10.0); %Lymphocytes 28.2 % (21.0-51.0); %Neutrophils 62.8 % (42.0-75.0); Hemoglobin 11.8 g/dL (14.0-18.0); Mean Corpuscular HGB CONC 33.5 g/dL (32.0-36.0); Mean Corpuscular Hemoglobin 26.7 pg (27.0-31.0); Mean Corpuscular Volume 79.8 fL (78.0-98.0); Mean Platelet Volume 6.9 fL (7.4-10.4); Platelet Count 556 thou/uL (130-400); RBC Distribution Width 16.6 % (11.5-14.5); Red Blood Cell (RBC) Count 4.43 mill/uL (4.70-6.10)
[2021-02-27 14:22] LABS: ALT (SGPT) 26 U/L (8-55); AST (SGOT) 18 U/L (5-34); Albumin 4.2 g/dL (3.4-4.8); Alkaline Phosphatase 82 U/L (40-110); Anion Gap 15 mmol/L (10-20); BUN (Urea Nitrogen) 24 mg/dL (8.4-25.7); Bilirubin, Total 0.4 mg/dL (0.2-1.2); CRP (Inflammatory) 0.78 mg/dL (= or < 0.5); Calc. Creatinine Clearance 98 mL/min (70-130); Calcium 9.9 mg/dL (7.8-10.44); Carbon Dioxide 26 mmol/L (23-31); Chloride 104 mmol/L (98-107); Glucose 149 mg/dL (80-115); Potassium 4.8 mmol/L (3.5-5.1); Protein, Total 8.2 g/dL (5.8-8.1); Sodium 140 mmol/L (136-145)
[2021-02-27] MEDS ORDERED: Morphine 4 MG/ML VIAL SLOW IVP SCH (14:45)
[2021-02-27] MEDS ORDERED: Dextrose 50% Abboject 50 ML SYRINGE SLOW IVP PRN (15:11)
[2021-02-27] MEDS ORDERED: Dextrose 5% in Water 1,000 ML IV PRN (15:11)
[2021-02-27] MEDS ORDERED: HumaLOG 300 UNITS/3 ML VIAL SC PRN ×2 (15:11)
[2021-02-27] MEDS ORDERED: HYDROcodone/Acetaminophen 10/325 mg Tablet PO PRN ×3 (15:52→18:26)
[2021-02-27] MEDS ORDERED: Morphine 2 MG/ML VIAL SLOW IVP PRN (18:25)
[2021-02-27] MEDS: Sodium Chloride 0.9% 1,000 ML IV SCH (18:42)
[2021-02-27] MEDS: Cyclobenzaprine 10 MG TAB PO PRN (19:45)
[2021-02-27] MEDS: Lidocaine 5% Patch TD SCH (19:45)
[2021-02-27] MEDS: Morphine 4 MG/ML VIAL SLOW IVP PRN (20:20)
[2021-02-27] MEDS: Pregabalin 50 MG CAP PO SCH (20:24)
[2021-02-27] MEDS: Senokot S 8.6-50 MG TAB PO SCH (20:24)
[2021-02-27] MEDS: Atorvastatin Calcium 20 MG TAB PO SCH (20:24)
[2021-02-27 23:48] LABS: SARS-CoV-2 PCR by NAA Not Detected (NotDetected)
[2021-02-28] MEDS: Morphine 4 MG/ML VIAL SLOW IVP PRN ×6 (00:50→20:18)
[2021-02-28] MEDS: Sodium Chloride 0.9% 1,000 ML IV SCH (00:52)
[2021-02-28] MEDS ORDERED: HYDROcodone/Acetaminophen 10/325 mg Tablet PO SCH (02:45)
[2021-02-28 04:07] LABS: #Eosinphils 0.2 thou/uL (0.0-0.7); #Lymphocytes 1.8 thou/uL (1.20-3.40); #Monocytes 0.6 thou/uL (0.11-0.59); #Neutrophils 2.6 thou/uL (1.40-6.50); %Basophils 0.6 % (0.0-1.0); %Eosinophils 3.5 % (0.0-10.0); %Lymphocytes 35.4 % (21.0-51.0); %Monocytes 10.9 % (0.0-10.0); %Neutrophils 49.7 % (42.0-75.0); Hemoglobin 10.6 g/dL (14.0-18.0); Mean Corpuscular HGB CONC 31.6 g/dL (32.0-36.0); Mean Corpuscular Hemoglobin 25.7 pg (27.0-31.0); Mean Corpuscular Volume 81.3 fL (78.0-98.0); Mean Platelet Volume 6.6 fL (7.4-10.4); Platelet Count 475 thou/uL (130-400); RBC Distribution Width 16.5 % (11.5-14.5); Red Blood Cell (RBC) Count 4.14 mill/uL (4.70-6.10); White Blood Cell (WBC) Count 5.1 thou/uL (4.8-10.8)
[2021-02-28 04:25] LABS: Anion Gap 11 mmol/L (10-20); BUN (Urea Nitrogen) 20 mg/dL (8.4-25.7); Calc. Creatinine Clearance 131 mL/min (70-130); Carbon Dioxide 25 mmol/L (23-31); Chloride 106 mmol/L (98-107); Glucose 101 mg/dL (80-115); Potassium 4.1 mmol/L (3.5-5.1); Sodium 138 mmol/L (136-145)
[2021-02-28] MEDS: HYDROcodone/Acetaminophen 10/325 mg Tablet PO PRN ×5 (06:04→22:27)
[2021-02-28] MEDS: Senokot S 8.6-50 MG TAB PO SCH ×2 (08:28→20:19)
[2021-02-28] MEDS: DULoxetine 60 MG CAP PO SCH (08:28)
[2021-02-28] MEDS: Pregabalin 50 MG CAP PO SCH ×3 (08:29→20:19)
[2021-02-28] MEDS ORDERED: FLU VACC QS2021-22(6MOS UP)/PF 60 MCG/0.5 ML SYRINGE IM ONE (12:30)
[2021-02-28] MEDS: Cyclobenzaprine 10 MG TAB PO PRN (19:44)
[2021-02-28] MEDS: Lidocaine 5% Patch TD SCH (19:44)
[2021-02-28] MEDS: Atorvastatin Calcium 20 MG TAB PO SCH (20:19)
[2021-03-01] MEDS: Cyclobenzaprine 10 MG TAB PO PRN (00:35)
[2021-03-01] MEDS: Morphine 4 MG/ML VIAL SLOW IVP PRN ×2 (00:36→05:05)
[2021-03-01] MEDS: HYDROcodone/Acetaminophen 10/325 mg Tablet PO PRN ×2 (03:55→08:58)
[2021-03-01 07:37] LABS: Anion Gap 11 mmol/L (10-20); BUN (Urea Nitrogen) 18 mg/dL (8.4-25.7); Calc. Creatinine Clearance 133 mL/min (70-130); Calcium 9.4 mg/dL (7.8-10.44); Carbon Dioxide 24 mmol/L (23-31); Chloride 104 mmol/L (98-107); Glucose 110 mg/dL (80-115); Hemoglobin 11.4 g/dL (14.0-18.0); Mean Corpuscular HGB CONC 32.7 g/dL (32.0-36.0); Mean Corpuscular Hemoglobin 26.7 pg (27.0-31.0); Mean Corpuscular Volume 81.4 fL (78.0-98.0); Mean Platelet Volume 6.9 fL (7.4-10.4); Platelet Count 479 thou/uL (130-400); Potassium 4.4 mmol/L (3.5-5.1); RBC Distribution Width 16.5 % (11.5-14.5); Red Blood Cell (RBC) Count 4.29 mill/uL (4.70-6.10); Sodium 135 mmol/L (136-145); White Blood Cell (WBC) Count 4.6 thou/uL (4.8-10.8)
[2021-03-01] MEDS: Senokot S 8.6-50 MG TAB PO SCH ×2 (09:18→20:32)
[2021-03-01] MEDS: Pregabalin 50 MG CAP PO SCH ×3 (09:19→20:32)
[2021-03-01] MEDS: DULoxetine 60 MG CAP PO SCH (09:19)
[2021-03-01 09:31] LABS: Band 1 % (5-11); Eosinophils 9 % (0-10); Lymphocytes 41 % (21-51); MDiff Complete? YES; Monocytes 8 % (0-10); Neutrophil 41 % (42-75); Platelet Morphology Comment Appears Increased; Polychromasia SLIGHT = 2-3 cells (100X) (0-2/hpf)
[2021-03-01] MEDS: Acetaminophen 500 MG TAB PO SCH ×2 (11:52→17:12)
[2021-03-01] MEDS: HYDROmorphone 10 MG in Sodium Chloride 0.9% 95 ML IVPB PRN (13:03)
[2021-03-01] MEDS: Cyclobenzaprine 10 MG TAB PO SCH ×2 (15:50→20:32)
[2021-03-01] MEDS: Lidocaine 5% Patch TD SCH (20:32)
[2021-03-01] MEDS: Atorvastatin Calcium 20 MG TAB PO SCH (20:32)
[2021-03-02] MEDS: Acetaminophen 500 MG TAB PO SCH ×5 (00:50→22:35)
[2021-03-02 06:44] LABS: #Eosinphils 0.1 thou/uL (0.0-0.7); #Lymphocytes 1.4 thou/uL (1.20-3.40); #Monocytes 0.3 thou/uL (0.11-0.59); #Neutrophils 2.2 thou/uL (1.40-6.50); %Basophils 1.1 % (0.0-1.0); %Eosinophils 3.4 % (0.0-10.0); %Lymphocytes 34.4 % (21.0-51.0); %Monocytes 8.2 % (0.0-10.0); %Neutrophils 52.9 % (42.0-75.0); Hemoglobin 11.4 g/dL (14.0-18.0); Mean Corpuscular HGB CONC 33.1 g/dL (32.0-36.0); Mean Corpuscular Hemoglobin 26.4 pg (27.0-31.0); Mean Corpuscular Volume 79.8 fL (78.0-98.0); Mean Platelet Volume 6.9 fL (7.4-10.4); Platelet Count 484 thou/uL (130-400); RBC Distribution Width 16.2 % (11.5-14.5); Red Blood Cell (RBC) Count 4.32 mill/uL (4.70-6.10); White Blood Cell (WBC) Count 4.1 thou/uL (4.8-10.8)
[2021-03-02 07:05] LABS: Anion Gap 11 mmol/L (10-20); BUN (Urea Nitrogen) 15 mg/dL (8.4-25.7); Calc. Creatinine Clearance 147 mL/min (70-130); Calcium 9.7 mg/dL (7.8-10.44); Carbon Dioxide 26 mmol/L (23-31); Chloride 106 mmol/L (98-107); Glucose 113 mg/dL (80-115); Potassium 4.1 mmol/L (3.5-5.1); Sodium 139 mmol/L (136-145)
[2021-03-02] MEDS: Senokot S 8.6-50 MG TAB PO SCH ×2 (09:00→20:36)
[2021-03-02] MEDS: Cyclobenzaprine 10 MG TAB PO SCH ×3 (09:01→20:36)
[2021-03-02] MEDS: Pregabalin 50 MG CAP PO SCH ×3 (09:01→20:37)
[2021-03-02] MEDS: DULoxetine 60 MG CAP PO SCH (09:03)
[2021-03-02] MEDS: HYDROmorphone 10 MG in Sodium Chloride 0.9% 95 ML IVPB PRN ×2 (11:38→18:14)
[2021-03-02] MEDS: Atorvastatin Calcium 20 MG TAB PO SCH (20:36)
[2021-03-02] MEDS: Lidocaine 5% Patch TD SCH (20:36)
[2021-03-03] MEDS: Acetaminophen 500 MG TAB PO SCH ×3 (05:30→18:24)
[2021-03-03] MEDS ORDERED: hydrALAZINE 20 MG/ML VIAL SLOW IVP PRN (08:16)
[2021-03-03] MEDS ORDERED: Hydrocerin (Eucerin) Cream 120 gm Jar TOP PRN (08:16)
[2021-03-03] MEDS ORDERED: Sodium Chloride 0.65% Nasal 44 ML BOT EA NARE PRN (08:16)
[2021-03-03] MEDS ORDERED: diphenhydrAMINE 25 MG CAP PO PRN (08:16)
[2021-03-03] MEDS ORDERED: GUAIFENESIN SF SOLN 200 MG/10 ML UDCUP PO PRN (08:16)
[2021-03-03] MEDS ORDERED: Loperamide HCl 2 MG CAP PO PRN (08:16)
[2021-03-03] MEDS ORDERED: Cepastat Lozenges 1 LOZ PO PRN (08:16)
[2021-03-03] MEDS ORDERED: Bisacodyl 10 MG SUPP PR PRN (08:16)
[2021-03-03] MEDS ORDERED: Bisacodyl 5 MG TAB PO PRN (08:16)
[2021-03-03] MEDS ORDERED: Artificial Tear Sol 15 ML BOT EA EYE PRN (08:16)
[2021-03-03] MEDS ORDERED: Calcium Carbonate 500 MG ChewTAB PO PRN (08:16)
[2021-03-03] MEDS ORDERED: Ondansetron ODT 4 MG TAB PO PRN (08:16)
[2021-03-03] MEDS ORDERED: Ondansetron PF 4 MG/2 ML Vial IVP PRN (08:16)
[2021-03-03] MEDS ORDERED: Naloxone HCl 0.4 mg/ml Vial IV PRN (08:18)
[2021-03-03] MEDS ORDERED: Fluticasone Propionate Nasal Spray 16 gm Bottle NASAL PRN (08:19)
[2021-03-03] MEDS: Cyclobenzaprine 10 MG TAB PO SCH ×3 (08:33→20:28)
[2021-03-03] MEDS: DULoxetine 60 MG CAP PO SCH (08:33)
[2021-03-03] MEDS: Senokot S 8.6-50 MG TAB PO SCH ×2 (08:33→20:28)
[2021-03-03] MEDS: Polyethylene Glycol 3350 17 GM Packet PO SCH (09:56)
[2021-03-03] MEDS: Pregabalin 50 MG CAP PO SCH ×3 (09:56→20:27)
[2021-03-03] MEDS: Docusate 100 MG CAP PO SCH ×2 (09:57→20:28)
[2021-03-03] MEDS: Amlodipine 5 MG TAB PO SCH (09:57)
[2021-03-03] MEDS: metFORMIN 500 MG TAB PO SCH (12:23)
[2021-03-03] MEDS: HYDROmorphone 10 MG in Sodium Chloride 0.9% 95 ML IVPB PRN (14:40)
[2021-03-03] MEDS: Lidocaine 5% Patch TD SCH (20:27)
[2021-03-03] MEDS: Atorvastatin Calcium 20 MG TAB PO SCH (20:28)
[2021-03-04] MEDS: Acetaminophen 500 MG TAB PO SCH ×5 (00:33→20:56)
[2021-03-04 07:54] LABS: #Basophils 0.1 thou/uL (0.0-0.2); #Eosinphils 0.1 thou/uL (0.0-0.7); #Lymphocytes 1.4 thou/uL (1.20-3.40); #Monocytes 0.4 thou/uL (0.11-0.59); #Neutrophils 2.1 thou/uL (1.40-6.50); %Basophils 1.2 % (0.0-1.0); %Eosinophils 2.5 % (0.0-10.0); %Lymphocytes 34.9 % (21.0-51.0); %Monocytes 9.7 % (0.0-10.0); %Neutrophils 51.8 % (42.0-75.0); Hemoglobin 11.1 g/dL (14.0-18.0); Mean Corpuscular HGB CONC 33.2 g/dL (32.0-36.0); Mean Corpuscular Hemoglobin 26.3 pg (27.0-31.0); Mean Corpuscular Volume 79.1 fL (78.0-98.0); Mean Platelet Volume 6.9 fL (7.4-10.4); Platelet Count 448 thou/uL (130-400); RBC Distribution Width 16.2 % (11.5-14.5); Red Blood Cell (RBC) Count 4.23 mill/uL (4.70-6.10); White Blood Cell (WBC) Count 4.1 thou/uL (4.8-10.8)
[2021-03-04 08:15] LABS: ALT (SGPT) 18 U/L (8-55); AST (SGOT) 14 U/L (5-34); Albumin 3.8 g/dL (3.4-4.8); Alkaline Phosphatase 76 U/L (40-110); Anion Gap 13 mmol/L (10-20); BUN (Urea Nitrogen) 15 mg/dL (8.4-25.7); Bilirubin, Total 0.4 mg/dL (0.2-1.2); Calc. Creatinine Clearance 139 mL/min (70-130); Calcium 9.5 mg/dL (7.8-10.44); Carbon Dioxide 25 mmol/L (23-31); Chloride 104 mmol/L (98-107); Globulin 3.5 g/dL (2.4-3.5); Glucose 120 mg/dL (80-115); Phosphorus 3.9 mg/dL (2.3-4.7); Potassium 4.2 mmol/L (3.5-5.1); Protein, Total 7.3 g/dL (5.8-8.1); Sodium 138 mmol/L (136-145)
[2021-03-04] MEDS: Polyethylene Glycol 3350 17 GM Packet PO SCH (08:28)
[2021-03-04] MEDS: Pregabalin 50 MG CAP PO SCH ×3 (08:30→20:55)
[2021-03-04] MEDS: Amlodipine 5 MG TAB PO SCH (08:32)
[2021-03-04] MEDS: Magnesium Oxide 400 MG TAB PO SCH (08:32)
[2021-03-04] MEDS: Docusate 100 MG CAP PO SCH ×2 (08:32→20:56)
[2021-03-04] MEDS: DULoxetine 60 MG CAP PO SCH (08:32)
[2021-03-04] MEDS: Multivit, Therapeutic 1 TAB PO SCH (08:33)
[2021-03-04] MEDS: Senokot S 8.6-50 MG TAB PO SCH ×2 (08:33→20:55)
[2021-03-04] MEDS: Cyclobenzaprine 10 MG TAB PO SCH ×3 (08:33→20:55)
[2021-03-04] MEDS ORDERED: Magnesium Citrate 300 ML BOT PO SCH (09:15)
[2021-03-04] MEDS: metFORMIN 500 MG TAB PO SCH (11:25)
[2021-03-04] MEDS: HYDROmorphone 10 MG in Sodium Chloride 0.9% 95 ML IVPB PRN (12:38)
[2021-03-04] MEDS ORDERED: Fleet Enema 133 ML BOT PR SCH (18:15)
[2021-03-04] MEDS: Lidocaine 5% Patch TD SCH (20:54)
[2021-03-04] MEDS: Atorvastatin Calcium 20 MG TAB PO SCH (20:56)
[2021-03-05] MEDS: Acetaminophen 500 MG TAB PO SCH ×3 (05:38→19:13)
[2021-03-05] MEDS ORDERED: Thrombin 5000 UNITS/5 ML VIAL ONE (07:18)
[2021-03-05] MEDS ORDERED: Bupivacaine PF 0.5% 30 ML VIAL ONE (07:18)
[2021-03-05] MEDS ORDERED: EPINEPHrine 1 MG/ML AMP ONE (07:18)
[2021-03-05] MEDS ORDERED: Fentanyl 100 MCG/2 ML VIAL ONE ×4 (08:25→13:42)
[2021-03-05] MEDS ORDERED: PHENYLEPHRINE-NS 100 MCG/ML 10 ML SYRINGE ONE (08:28)
[2021-03-05] MEDS ORDERED: PROPOFOL 200 MG/20 ML VIAL ONE (08:28)
[2021-03-05] MEDS ORDERED: Lidocaine 1% PF 5 ML VIAL ONE (08:28)
[2021-03-05] MEDS ORDERED: Rocuronium Bromide 10 MG/ML (10ML VIAL) ONE (08:28)
[2021-03-05] MEDS ORDERED: Ondansetron PF 4 MG/2 ML Vial ONE (08:28)
[2021-03-05] MEDS ORDERED: Metoclopramide HCl 10 MG/2 ML VIAL ONE (08:28)
[2021-03-05] MEDS ORDERED: Vecuronium 10 MG VIAL ONE (08:28)
[2021-03-05] MEDS ORDERED: Ondansetron HCl/PF 4 MG/2 ML Vial IVP PRN (13:29)
[2021-03-05] MEDS ORDERED: Promethazine HCl 25 MG/ML VIAL IM PRN (13:29)
[2021-03-05] MEDS ORDERED: Promethazine HCl 25 MG/ML VIAL IVPB PRN (13:29)
[2021-03-05] MEDS ORDERED: Morphine Sulfate 2 MG/ML SYRINGE SLOW IVP PRN (13:29)
[2021-03-05] MEDS ORDERED: PACU-Morphine 4MG/ML VIAL SLOW IVP PRN (13:29)
[2021-03-05] MEDS ORDERED: HYDROcodone/Acetaminophen 10/325 mg Tablet PO PRN (13:31)
[2021-03-05] MEDS ORDERED: Morphine 4 MG/ML VIAL ONE (14:09)
[2021-03-05] MEDS: Sodium Chloride 0.9% 1,000 ML IV SCH (14:15)
[2021-03-05] MEDS: Cyclobenzaprine 10 MG TAB PO SCH ×3 (15:46→20:04)
[2021-03-05] MEDS: Pregabalin 50 MG CAP PO SCH ×3 (15:47→20:05)
[2021-03-05] MEDS: HYDROcodone/Acetaminophen 10/325 mg Tablet PO PRN ×2 (15:48→20:06)
[2021-03-05] MEDS ORDERED: CEFAZOLIN 2 GM in Premix Bag 1 BAG IVPB SCH (16:00)
[2021-03-05] MEDS: Amlodipine 5 MG TAB PO SCH (16:20)
[2021-03-05] MEDS: Docusate 100 MG CAP PO SCH ×2 (16:21→20:07)
[2021-03-05] MEDS: Multivit, Therapeutic 1 TAB PO SCH (16:21)
[2021-03-05] MEDS: DULoxetine 60 MG CAP PO SCH (16:21)
[2021-03-05] MEDS: Magnesium Oxide 400 MG TAB PO SCH (16:21)
[2021-03-05] MEDS: Senokot S 8.6-50 MG TAB PO SCH ×2 (16:22→20:04)
[2021-03-05] MEDS: Polyethylene Glycol 3350 17 GM Packet PO SCH (19:02)
[2021-03-05] MEDS: metFORMIN 500 MG TAB PO SCH (19:02)
[2021-03-05] MEDS: Atorvastatin Calcium 20 MG TAB PO SCH (20:05)
[2021-03-05] MEDS: Lidocaine 5% Patch TD SCH (20:40)
[2021-03-06] MEDS: HYDROcodone/Acetaminophen 10/325 mg Tablet PO PRN ×4 (00:03→19:14)
[2021-03-06] MEDS: Acetaminophen 500 MG TAB PO SCH ×3 (00:04→10:58)
[2021-03-06] MEDS: Morphine 4 MG/ML VIAL SLOW IVP PRN ×7 (00:04→19:13)
[2021-03-06] MEDS: Sodium Chloride 0.9% 1,000 ML IV SCH ×2 (00:36→14:20)
[2021-03-06] MEDS: CEFAZOLIN 2 GM in Premix Bag 1 BAG IVPB SCH ×2 (05:07→10:59)
[2021-03-06] MEDS: Senokot S 8.6-50 MG TAB PO SCH ×2 (07:50→20:43)
[2021-03-06] MEDS: Cyclobenzaprine 10 MG TAB PO SCH ×3 (07:50→20:43)
[2021-03-06] MEDS: Magnesium Oxide 400 MG TAB PO SCH (07:50)
[2021-03-06] MEDS: Pregabalin 50 MG CAP PO SCH ×3 (07:51→20:45)
[2021-03-06] MEDS: Amlodipine 5 MG TAB PO SCH (07:51)
[2021-03-06] MEDS: Multivit, Therapeutic 1 TAB PO SCH (07:52)
[2021-03-06] MEDS: Polyethylene Glycol 3350 17 GM Packet PO SCH (07:52)
[2021-03-06] MEDS: Docusate 100 MG CAP PO SCH ×2 (07:52→20:43)
[2021-03-06] MEDS: DULoxetine 60 MG CAP PO SCH ×2 (07:58→08:02)
[2021-03-06] MEDS: metFORMIN 500 MG TAB PO SCH (10:58)
[2021-03-06] MEDS ORDERED: ceFAZolin Sodium/D5W 2 GM in Premix Bag 1 BAG IVPB SCH ×2 (18:00→21:00)
[2021-03-06] MEDS: Atorvastatin Calcium 20 MG TAB PO SCH (20:43)
[2021-03-06] MEDS: Lidocaine 5% Patch TD SCH (20:54)
[2021-03-07] MEDS: Morphine 4 MG/ML VIAL SLOW IVP PRN ×3 (01:58→14:50)
[2021-03-07] MEDS: HYDROcodone/Acetaminophen 10/325 mg Tablet PO PRN ×3 (05:19→18:05)
[2021-03-07] MEDS: CEFAZOLIN 2 GM, Admixture Fee 1 EACH in Sodium Chloride 0.9% 100 ML IVPB SCH ×2 (05:21→14:37)
[2021-03-07] MEDS ORDERED: Transdermal Patch Removal TOP SCH (08:00)
[2021-03-07] MEDS: Polyethylene Glycol 3350 17 GM Packet PO SCH (08:53)
[2021-03-07] MEDS: Docusate 100 MG CAP PO SCH (08:53)
[2021-03-07] MEDS: DULoxetine 60 MG CAP PO SCH (08:53)
[2021-03-07] MEDS: Senokot S 8.6-50 MG TAB PO SCH (08:53)
[2021-03-07] MEDS: Cyclobenzaprine 10 MG TAB PO SCH ×2 (08:54→14:49)
[2021-03-07] MEDS: Pregabalin 50 MG CAP PO SCH ×2 (08:54→14:49)
[2021-03-07] MEDS: Multivit, Therapeutic 1 TAB PO SCH (08:55)
[2021-03-07] MEDS: Amlodipine 5 MG TAB PO SCH (08:55)
[2021-03-07] MEDS: Magnesium Oxide 400 MG TAB PO SCH (08:55)
[2021-03-07 11:33] LABS: SARS-CoV-2 PCR by NAA Not Detected (NotDetected)
[2021-03-07] MEDS: metFORMIN 500 MG TAB PO SCH (12:41)
[2021-03-07 16:42] VITALS: BP 134/90; TEMP 98.6
== END 2021-03-07 18:59 | DRG 460 ==
LOC: T4-A 11:49
PROVIDERS: ADMIT Internal Medicine; ATTEND Internal Medicine
PROC: 0SG0071 Fusion of Lumbar Vertebral Joint with Autologous Tissue Substitute, Posterior Approach, Posterior Column, Open Approach (ICD-10-PCS; principal; 2021-02-27)
PROC: 01NB0ZZ Release Lumbar Nerve, Open Approach (ICD-10-PCS; 2021-02-27)
DX: M48.062 Spinal stenosis, lumbar region with neurogenic claudication (principal); M46.26 Osteomyelitis of vertebra, lumbar region; N17.9 Acute kidney failure, unspecified; Z68.42 Body mass index [BMI] 45.0-49.9, adult; Z20.822 Contact with and (suspected) exposure to COVID-19; M54.16 Radiculopathy, lumbar region; E11.69 Type 2 diabetes mellitus with other specified complication; E78.5 Hyperlipidemia, unspecified; I10 Essential (primary) hypertension; G89.29 Other chronic pain; K59.03 Drug induced constipation; T40.2X5A Adverse effect of other opioids, initial encounter; F41.9 Anxiety disorder, unspecified; M46.46 Discitis, unspecified, lumbar region; D64.9 Anemia, unspecified; E66.01 Morbid (severe) obesity due to excess calories; G47.33 Obstructive sleep apnea (adult) (pediatric); F39 Unspecified mood [affective] disorder; Z88.5 Allergy status to narcotic agent; Z79.899 Other long term (current) drug therapy; Z79.84 Long term (current) use of oral hypoglycemic drugs; Z79.01 Long term (current) use of anticoagulants; Z79.82 Long term (current) use of aspirin; Z98.890 Other specified postprocedural states; Z86.718 Personal history of other venous thrombosis and embolism
CPT/HCPCS: 36415; 36416; 72158; 76000; 80048; 80053; 83735; 84100; 85025; 85610; 86140; 87040; 90471; 90686; 93005; 93010; A9579; C1768; G0008; J0171; J0690; J1170; J2270; J2405; J2704; J2765; J3010; J3490; J7050; S0020; U0003; U0005

== ENCOUNTER 2021-04-28 09:52 | Inpatient (IN) | payer OTHER ==
[2021-04-28 11:17] LABS: #Lymphocytes 2.1 thou/uL (1.20-3.40); #Monocytes 0.5 thou/uL (0.11-0.59); #Neutrophils 5.8 thou/uL (1.40-6.50); %Basophils 0.4 % (0.0-1.0); %Eosinophils 0.2 % (0.0-10.0); %Lymphocytes 25.2 % (21.0-51.0); %Monocytes 6.1 % (0.0-10.0); Mean Corpuscular HGB CONC 32.8 g/dL (32.0-36.0); Mean Corpuscular Hemoglobin 26.4 pg (27.0-31.0); Mean Corpuscular Volume 80.5 fL (78.0-98.0); Mean Platelet Volume 6.8 fL (7.4-10.4); Platelet Count 552 thou/uL (130-400); RBC Distribution Width 17.8 % (11.5-14.5); Red Blood Cell (RBC) Count 4.91 mill/uL (4.70-6.10); White Blood Cell (WBC) Count 8.5 thou/uL (4.8-10.8)
[2021-04-28] MEDS ORDERED: Morphine 4 MG/ML VIAL ONE ×2 (11:22→13:12)
[2021-04-28 11:37] LABS: ALT (SGPT) 59 U/L (8-55); AST (SGOT) 29 U/L (5-34); Albumin 4.1 g/dL (3.4-4.8); Alkaline Phosphatase 91 U/L (40-110); Anion Gap 17 mmol/L (10-20); BUN (Urea Nitrogen) 13 mg/dL (8.4-25.7); Bilirubin, Total 0.4 mg/dL (0.2-1.2); CRP (Inflammatory) 1.93 mg/dL (= or < 0.5); Calc. Creatinine Clearance 0 mL/min (70-130); Calcium 9.9 mg/dL (7.8-10.44); Carbon Dioxide 20 mmol/L (23-31); Chloride 103 mmol/L (98-107); Globulin 4.6 g/dL (2.4-3.5); Glucose 118 mg/dL (80-115); Potassium 4.7 mmol/L (3.5-5.1); Protein, Total 8.7 g/dL (5.8-8.1); Sodium 135 mmol/L (136-145)
[2021-04-28] MEDS ORDERED: Magnevist 469MG/ML 20 ML VIAL ONE (12:38)
[2021-04-28 14:05] VITALS: BMI 45.9
[2021-04-28] MEDS ORDERED: Ketorolac Tromethamine 30 MG/ML VIAL IVP PRN (14:14)
[2021-04-28] MEDS ORDERED: Ondansetron PF 4 MG/2 ML Vial IVP PRN (14:15)
[2021-04-28] MEDS ORDERED: Cefepime 2 GM in Sodium Chloride 0.9% 100 ML IVPB SCH (14:15)
[2021-04-28] MEDS ORDERED: Ondansetron ODT 4 MG TAB SL PRN (14:15)
[2021-04-28] MEDS ORDERED: Acetaminophen 325 MG TAB PO PRN (14:15)
[2021-04-28] MEDS ORDERED: VANCOMYCIN 2 GRAM/400 ML BAG 2 GM in Premix Bag 1 BAG IVPB SCH (15:00)
[2021-04-28 16:33] LABS: Hemoglobin A1c 4.9 % (4.0-6.0)
[2021-04-28] MEDS: Morphine 4 MG/ML VIAL SLOW IVP PRN ×2 (18:00→23:09)
[2021-04-29] MEDS ORDERED: Ketorolac Tromethamine 30 MG/ML VIAL IVP PRN (04:26)
[2021-04-29] MEDS: Morphine 4 MG/ML VIAL SLOW IVP PRN ×5 (05:07→22:45)
[2021-04-29 06:38] LABS: #Lymphocytes 0.8 thou/uL (1.20-3.40); #Monocytes 0.4 thou/uL (0.11-0.59); #Neutrophils 5.6 thou/uL (1.40-6.50); %Basophils 0.2 % (0.0-1.0); %Eosinophils 0.3 % (0.0-10.0); %Monocytes 6.2 % (0.0-10.0); %Neutrophils 82.4 % (42.0-75.0); Hemoglobin 11.6 g/dL (14.0-18.0); Mean Corpuscular HGB CONC 30.9 g/dL (32.0-36.0); Mean Corpuscular Hemoglobin 24.8 pg (27.0-31.0); Mean Corpuscular Volume 80.4 fL (78.0-98.0); Mean Platelet Volume 6.9 fL (7.4-10.4); Platelet Count 477 thou/uL (130-400); RBC Distribution Width 17.5 % (11.5-14.5); Red Blood Cell (RBC) Count 4.66 mill/uL (4.70-6.10); White Blood Cell (WBC) Count 6.8 thou/uL (4.8-10.8)
[2021-04-29 07:05] LABS: Anion Gap 14 mmol/L (10-20); BUN (Urea Nitrogen) 14 mg/dL (8.4-25.7); Calc. Creatinine Clearance 150 mL/min (70-130); Calcium 9.4 mg/dL (7.8-10.44); Carbon Dioxide 22 mmol/L (23-31); Chloride 106 mmol/L (98-107); Glucose 131 mg/dL (80-115); Sodium 138 mmol/L (136-145)
[2021-04-29] MEDS: HYDROcodone/Acetaminophen 10/325 mg Tablet PO PRN ×2 (10:57→20:48)
[2021-04-29] MEDS: tiZANidine HCl 4 MG TAB PO PRN ×3 (10:57→22:46)
[2021-04-29] MEDS ORDERED: Cefepime 2 GM in Sodium Chloride 0.9% 100 ML IVPB SCH ×2 (11:00→23:00)
[2021-04-29] MEDS ORDERED: Vancomycin 1.5 GRAM/300 ML BAG 1.5 GM in Premix Bag 1 BAG IVPB SCH ×2 (12:00→12:15)
[2021-04-29] MEDS ORDERED: DULoxetine 60 MG CAP PO SCH (13:45)
[2021-04-29] MEDS ORDERED: Pregabalin 50 MG CAP PO SCH (13:45)
[2021-04-29] MEDS: Cyclobenzaprine 10 MG TAB PO SCH ×2 (13:57→20:46)
[2021-04-29 14:11] LABS: SARS-CoV-2 PCR by NAA Not Detected (NotDetected)
[2021-04-29] MEDS: Lidocaine 5% Patch TD SCH (20:45)
[2021-04-29] MEDS: Atorvastatin Calcium 20 MG TAB PO SCH (20:47)
[2021-04-29] MEDS: Pregabalin 50 MG CAP PO SCH (20:48)
[2021-04-30] MEDS ORDERED: Vancomycin 1.5 GRAM/300 ML BAG 1.5 GM in Premix Bag 1 BAG IVPB SCH (00:15)
[2021-04-30] MEDS: HYDROcodone/Acetaminophen 10/325 mg Tablet PO PRN (05:06)
[2021-04-30] MEDS: tiZANidine HCl 4 MG TAB PO PRN ×2 (05:21→20:26)
[2021-04-30] MEDS: Morphine 4 MG/ML VIAL SLOW IVP PRN ×6 (06:12→22:46)
[2021-04-30 07:54] LABS: Anion Gap 11 mmol/L (10-20); BUN (Urea Nitrogen) 12 mg/dL (8.4-25.7); Calc. Creatinine Clearance 149 mL/min (70-130); Carbon Dioxide 22 mmol/L (23-31); Chloride 104 mmol/L (98-107); Glucose 157 mg/dL (80-115); Sodium 133 mmol/L (136-145)
[2021-04-30 07:56] LABS: #Lymphocytes 0.6 thou/uL (1.20-3.40); #Monocytes 0.4 thou/uL (0.11-0.59); #Neutrophils 5.3 thou/uL (1.40-6.50); %Basophils 0.1 % (0.0-1.0); %Eosinophils 0.5 % (0.0-10.0); %Lymphocytes 9.7 % (21.0-51.0); %Monocytes 5.9 % (0.0-10.0); %Neutrophils 83.8 % (42.0-75.0); Hemoglobin 10.9 g/dL (14.0-18.0); Mean Corpuscular HGB CONC 30.8 g/dL (32.0-36.0); Mean Corpuscular Hemoglobin 25.1 pg (27.0-31.0); Mean Corpuscular Volume 81.7 fL (78.0-98.0); Mean Platelet Volume 7.1 fL (7.4-10.4); Platelet Count 385 thou/uL (130-400); RBC Distribution Width 17.6 % (11.5-14.5); Red Blood Cell (RBC) Count 4.32 mill/uL (4.70-6.10); White Blood Cell (WBC) Count 6.3 thou/uL (4.8-10.8)
[2021-04-30] MEDS: Cyclobenzaprine 10 MG TAB PO SCH ×3 (09:09→20:26)
[2021-04-30] MEDS: DULoxetine 60 MG CAP PO SCH (09:09)
[2021-04-30] MEDS: Amlodipine 5 MG TAB PO SCH (09:09)
[2021-04-30] MEDS: Transdermal Patch Removal TOP SCH (09:09)
[2021-04-30] MEDS: Glimepiride 2 MG TAB PO SCH (09:09)
[2021-04-30] MEDS: Pregabalin 50 MG CAP PO SCH ×3 (09:10→20:26)
[2021-04-30 11:10] LABS: HIV (1/2) Antibody/Antigen Non-Reactive (NonReactive); HIV 1/2 INDEX 0.12 S/CO (<1.00)
[2021-04-30] MEDS: Lidocaine 5% Patch TD SCH (20:26)
[2021-04-30] MEDS: Atorvastatin Calcium 20 MG TAB PO SCH (20:26)
[2021-04-30] MEDS: Docusate 100 MG CAP PO SCH (20:27)
[2021-05-01] MEDS: Morphine 4 MG/ML VIAL SLOW IVP PRN ×5 (04:02→21:56)
[2021-05-01 06:44] LABS: #Monocytes 0.3 thou/uL (0.11-0.59); #Neutrophils 4.7 thou/uL (1.40-6.50); %Basophils 0.6 % (0.0-1.0); %Eosinophils 0.5 % (0.0-10.0); %Lymphocytes 16.1 % (21.0-51.0); %Monocytes 5.6 % (0.0-10.0); %Neutrophils 77.2 % (42.0-75.0); Hemoglobin 10.9 g/dL (14.0-18.0); Mean Corpuscular HGB CONC 32.2 g/dL (32.0-36.0); Mean Corpuscular Hemoglobin 26.3 pg (27.0-31.0); Mean Corpuscular Volume 81.7 fL (78.0-98.0); Mean Platelet Volume 6.7 fL (7.4-10.4); Platelet Count 300 thou/uL (130-400); RBC Distribution Width 17.2 % (11.5-14.5); Red Blood Cell (RBC) Count 4.14 mill/uL (4.70-6.10); White Blood Cell (WBC) Count 6.1 thou/uL (4.8-10.8)
[2021-05-01 07:03] LABS: Anion Gap 12 mmol/L (10-20); BUN (Urea Nitrogen) 13 mg/dL (8.4-25.7); Calc. Creatinine Clearance 146 mL/min (70-130); Calcium 8.9 mg/dL (7.8-10.44); Carbon Dioxide 24 mmol/L (23-31); Chloride 104 mmol/L (98-107); Glucose 120 mg/dL (80-115); Potassium 4.2 mmol/L (3.5-5.1); Sodium 136 mmol/L (136-145)
[2021-05-01] MEDS: DULoxetine 60 MG CAP PO SCH (08:28)
[2021-05-01] MEDS: Cyclobenzaprine 10 MG TAB PO SCH ×3 (08:28→21:45)
[2021-05-01] MEDS: Docusate 100 MG CAP PO SCH ×2 (08:29→21:45)
[2021-05-01] MEDS: Pregabalin 50 MG CAP PO SCH ×3 (08:29→21:45)
[2021-05-01] MEDS: Glimepiride 2 MG TAB PO SCH (08:32)
[2021-05-01] MEDS: Transdermal Patch Removal TOP SCH (08:35)
[2021-05-01] MEDS: Amlodipine 5 MG TAB PO SCH (11:15)
[2021-05-01 12:53] LABS: ANA Symphony (Qualitative) Negative (Negative); ANA Symphony (Quantitative) 0.4 Ratio (< 0.7 Negative); dsDNA IgG Antibody 0.8 IU/mL (<10 Negative)
[2021-05-01 13:20] LABS: EliA RAS New Method **** NEW METHOD ****; Rheumatoid Factor IgM Antibody 1.2 IU/mL (<3.5 Negative)
[2021-05-01] MEDS ORDERED: Sodium Bicarbonate 2.5 MEQ/5 ML VIAL ONE (13:55)
[2021-05-01] MEDS: tiZANidine HCl 4 MG TAB PO PRN (13:59)
[2021-05-01] MEDS: Atorvastatin Calcium 20 MG TAB PO SCH (21:46)
[2021-05-01] MEDS: Lidocaine 5% Patch TD SCH (21:47)
[2021-05-02 06:43] LABS: Anion Gap 14 mmol/L (10-20); BUN (Urea Nitrogen) 12 mg/dL (8.4-25.7); Calc. Creatinine Clearance 175 mL/min (70-130); Calcium 9.3 mg/dL (7.8-10.44); Carbon Dioxide 22 mmol/L (23-31); Chloride 104 mmol/L (98-107); Glucose 114 mg/dL (80-115); Potassium 4.2 mmol/L (3.5-5.1); Sodium 136 mmol/L (136-145)
[2021-05-02 06:48] LABS: #Lymphocytes 1.2 thou/uL (1.20-3.40); #Monocytes 0.4 thou/uL (0.11-0.59); #Neutrophils 3.2 thou/uL (1.40-6.50); %Basophils 0.2 % (0.0-1.0); %Eosinophils 0.5 % (0.0-10.0); %Lymphocytes 23.8 % (21.0-51.0); %Monocytes 8.8 % (0.0-10.0); %Neutrophils 66.6 % (42.0-75.0); Hemoglobin 10.7 g/dL (14.0-18.0); Mean Corpuscular HGB CONC 30.4 g/dL (32.0-36.0); Mean Corpuscular Volume 82.3 fL (78.0-98.0); Platelet Count 314 thou/uL (130-400); RBC Distribution Width 17.1 % (11.5-14.5); Red Blood Cell (RBC) Count 4.29 mill/uL (4.70-6.10); White Blood Cell (WBC) Count 4.8 thou/uL (4.8-10.8)
[2021-05-02] MEDS: Transdermal Patch Removal TOP SCH (07:54)
[2021-05-02] MEDS: Morphine 4 MG/ML VIAL SLOW IVP PRN ×3 (07:57→16:01)
[2021-05-02] MEDS: Cyclobenzaprine 10 MG TAB PO SCH ×2 (08:06→14:48)
[2021-05-02] MEDS: Docusate 100 MG CAP PO SCH (08:06)
[2021-05-02] MEDS: DULoxetine 60 MG CAP PO SCH (08:07)
[2021-05-02] MEDS: Amlodipine 5 MG TAB PO SCH (08:07)
[2021-05-02] MEDS: Glimepiride 2 MG TAB PO SCH (08:08)
[2021-05-02] MEDS: Pregabalin 50 MG CAP PO SCH ×2 (08:15→14:48)
[2021-05-02 11:24] LABS: Syphilis Antibody Nonreactive (Nonreactive); Syphilis Antibody Index 0.04 S/CO (<1.00 Non-Reactive)
[2021-05-02 14:37] LABS: Albumin 3.6 g/dL (2.9-4.4); Alpha 1 0.3 g/dL (0.0-0.4); Alpha 2 0.8 g/dL (0.4-1.0); Beta 1.3 g/dL (0.7-1.3); Gamma 1.1 g/dL (0.4-1.8); Globulin, Total 3.5 g/dL (2.2-3.9); M-Spike Not Observed g/dL (Not Observed)
[2021-05-02 14:59] VITALS: BP 134/87; TEMP 98.9
== END 2021-05-02 16:26 | disposition home or self-care (01) | DRG 552 ==
LOC: ERS 09:52 → T4-A 12:44 → OBSVTOIN 14:32
PROVIDERS: ADMIT Internal Medicine; ATTEND Internal Medicine
PROC: 009U3ZX Drainage of Spinal Canal, Percutaneous Approach, Diagnostic (ICD-10-PCS; principal; 2021-05-01)
DX: M46.46 Discitis, unspecified, lumbar region (principal); M46.26 Osteomyelitis of vertebra, lumbar region; Z20.822 Contact with and (suspected) exposure to COVID-19; G89.29 Other chronic pain; E78.5 Hyperlipidemia, unspecified; I10 Essential (primary) hypertension; K59.03 Drug induced constipation; T40.2X5A Adverse effect of other opioids, initial encounter; E11.40 Type 2 diabetes mellitus with diabetic neuropathy, unspecified; R20.2 Paresthesia of skin; Z88.5 Allergy status to narcotic agent; Z79.899 Other long term (current) drug therapy; Z79.51 Long term (current) use of inhaled steroids; Z79.84 Long term (current) use of oral hypoglycemic drugs; Z98.890 Other specified postprocedural states; Z86.718 Personal history of other venous thrombosis and embolism
CPT/HCPCS: 36415; 36416; 72131; 72141; 72158; 77012; 80048; 80053; 83036; 83520; 83605; 84165; 85025; 85652; 86038; 86140; 86225; 86780; 87040; 87070; 87205; 87389; 96374; 96376; A9579; G0378; J0692; J1885; J2270; J3370; J3490; U0003; U0005

== ENCOUNTER 2021-05-12 06:43 | Emergency (ER) | payer OTHER ==
[2021-05-12] MEDS ORDERED: Morphine 4 MG/ML VIAL ONE ×2 (07:58→11:00)
[2021-05-12 08:13] LABS: #Basophils 0.1 thou/uL (0.0-0.2); #Eosinphils 0.1 thou/uL (0.0-0.7); #Lymphocytes 1.3 thou/uL (1.20-3.40); #Monocytes 0.3 thou/uL (0.11-0.59); #Neutrophils 3.2 thou/uL (1.40-6.50); %Basophils 1.3 % (0.0-1.0); %Eosinophils 2.3 % (0.0-10.0); %Lymphocytes 25.7 % (21.0-51.0); %Monocytes 6.2 % (0.0-10.0); %Neutrophils 64.5 % (42.0-75.0); Hemoglobin 10.5 g/dL (14.0-18.0); Mean Corpuscular HGB CONC 31.9 g/dL (32.0-36.0); Mean Corpuscular Hemoglobin 24.9 pg (27.0-31.0); Mean Corpuscular Volume 78.1 fL (78.0-98.0); Mean Platelet Volume 6.9 fL (7.4-10.4); Platelet Count 439 thou/uL (130-400); RBC Distribution Width 16.5 % (11.5-14.5); Red Blood Cell (RBC) Count 4.19 mill/uL (4.70-6.10)
[2021-05-12 08:21] LABS: ALT (SGPT) 17 U/L (8-55); AST (SGOT) 15 U/L (5-34); Albumin 3.8 g/dL (3.4-4.8); Alkaline Phosphatase 74 U/L (40-110); Anion Gap 14 mmol/L (10-20); BUN (Urea Nitrogen) 9 mg/dL (8.4-25.7); Bilirubin, Total 0.3 mg/dL (0.2-1.2); Calc. Creatinine Clearance 0 mL/min (70-130); Calcium 9.6 mg/dL (7.8-10.44); Carbon Dioxide 22 mmol/L (23-31); Chloride 105 mmol/L (98-107); Globulin 3.7 g/dL (2.4-3.5); Glucose 122 mg/dL (80-115); Potassium 3.5 mmol/L (3.5-5.1); Protein, Total 7.5 g/dL (5.8-8.1); Sodium 137 mmol/L (136-145)
[2021-05-12 09:43] LABS: Bilirubin Negative (Negative); Blood, Urine Negative (Negative); Clarity Clear (Clear); Glucose, Urine (Dipstick) Normal (Negative); Ketone, Urine Negative (Negative); Leukocyte Negative Leu/uL (Negative); Nitrite Negative (Negative); Protein, Urine (Dipstick) Negative (Neg-Trace); Specific Gravity, Urine 1.016 (1.002-1.036); Urobilinogen Normal mg/dL (Less than 2); pH, Urine 5.5 (5.0-9.0)
[2021-05-12 11:05] LABS: Lactic Acid 1.4 mmol/L (0.5-2.2)
== END 2021-05-12 11:55 | disposition home or self-care (01) ==
LOC: ERS 06:43
DX: M54.50 Low back pain, unspecified (principal); I10 Essential (primary) hypertension; E78.5 Hyperlipidemia, unspecified; E11.9 Type 2 diabetes mellitus without complications; M86.9 Osteomyelitis, unspecified; Z79.82 Long term (current) use of aspirin; Z79.84 Long term (current) use of oral hypoglycemic drugs; Z79.899 Other long term (current) drug therapy
CPT/HCPCS: 36415; 72128; 72131; 80053; 81003; 83605; 84484; 85025; 85652; 86140; 87040; 93005; 96374; 96375; 96376; J2270

== ENCOUNTER 2021-06-03 13:23 | Emergency (ER) | payer OTHER ==
[2021-06-03] MEDS ORDERED: Morphine 4 MG/ML VIAL ONE (13:57)
[2021-06-03 14:25] LABS: Bilirubin Negative (Negative); Blood, Urine Negative (Negative); Clarity Clear (Clear); Glucose, Urine (Dipstick) Normal (Negative); Ketone, Urine Negative (Negative); Leukocyte Negative Leu/uL (Negative); Nitrite Negative (Negative); Protein, Urine (Dipstick) Negative (Neg-Trace); Specific Gravity, Urine 1.005 (1.002-1.036); Urobilinogen Normal mg/dL (Less than 2)
[2021-06-03] MEDS ORDERED: Ketorolac Tromethamine 30 MG/ML VIAL ONE (15:18)
== END 2021-06-03 16:34 | disposition home or self-care (01) ==
LOC: ERS 13:23
DX: N43.3 Hydrocele, unspecified (principal); N50.812 Left testicular pain; M25.552 Pain in left hip; I10 Essential (primary) hypertension; E11.9 Type 2 diabetes mellitus without complications; E78.5 Hyperlipidemia, unspecified; Z79.82 Long term (current) use of aspirin; Z79.84 Long term (current) use of oral hypoglycemic drugs
CPT/HCPCS: 76870; 81003; 93976; 96372; J1885; J2270

== ENCOUNTER 2021-06-16 13:28 | Emergency (ER) | payer OTHER ==
[~2021-06-16 13:28] MED LIST changes: +Iopamidol 370 76% 50 ML VIAL FS ONE; -Magnevist 469MG/ML 20 ML VIAL ONE
[2021-06-16] MEDS ORDERED: Morphine 4 MG/ML VIAL ONE ×2 (15:36→20:59)
[2021-06-16] MEDS ORDERED: Diazepam 10 MG/2 ML SYRINGE ONE (15:36)
[2021-06-16 16:31] LABS: #Basophils 0.1 thou/uL (0.0-0.2); #Eosinphils 0.1 thou/uL (0.0-0.7); #Lymphocytes 1.5 thou/uL (1.20-3.40); #Monocytes 0.3 thou/uL (0.11-0.59); #Neutrophils 3.9 thou/uL (1.40-6.50); %Eosinophils 1.7 % (0.0-10.0); %Lymphocytes 25.1 % (21.0-51.0); %Monocytes 5.5 % (0.0-10.0); %Neutrophils 66.8 % (42.0-75.0); Hemoglobin 11.9 g/dL (14.0-18.0); Mean Corpuscular HGB CONC 31.8 g/dL (32.0-36.0); Mean Corpuscular Hemoglobin 25.6 pg (27.0-31.0); Mean Corpuscular Volume 80.4 fL (78.0-98.0); Mean Platelet Volume 7.1 fL (7.4-10.4); Platelet Count 407 thou/uL (130-400); RBC Distribution Width 16.7 % (11.5-14.5); Red Blood Cell (RBC) Count 4.65 mill/uL (4.70-6.10); White Blood Cell (WBC) Count 5.9 thou/uL (4.8-10.8)
[2021-06-16 16:53] LABS: ALT (SGPT) 14 U/L (8-55); AST (SGOT) 23 U/L (5-34); Albumin 4.3 g/dL (3.4-4.8); Alkaline Phosphatase 73 U/L (40-110); Anion Gap 15 mmol/L (10-20); BUN (Urea Nitrogen) 10 mg/dL (8.4-25.7); Bilirubin, Total 0.4 mg/dL (0.2-1.2); Calc. Creatinine Clearance 0 mL/min (70-130); Calcium 9.9 mg/dL (7.8-10.44); Carbon Dioxide 22 mmol/L (23-31); Chloride 105 mmol/L (98-107); Globulin 4.2 g/dL (2.4-3.5); Glucose 102 mg/dL (80-115); Potassium 4.2 mmol/L (3.5-5.1); Protein, Total 8.5 g/dL (5.8-8.1); Sodium 138 mmol/L (136-145)
[2021-06-16] MEDS ORDERED: Ketorolac Tromethamine 30 MG/ML VIAL ONE (17:49)
== END 2021-06-16 21:16 | disposition home or self-care (01) ==
LOC: ERS 13:28
DX: M54.50 Low back pain, unspecified (principal); E11.9 Type 2 diabetes mellitus without complications; E78.5 Hyperlipidemia, unspecified; Z79.82 Long term (current) use of aspirin; Z79.84 Long term (current) use of oral hypoglycemic drugs
CPT/HCPCS: 72132; 80053; 85025; 85652; 86140; 96374; 96375; 96376; J1885; J2270; J3360; Q9967

== ENCOUNTER 2021-06-22 14:12 | Outpatient (CLI) | payer OTHER ==
[2021-06-23 12:10] LABS: SARS-CoV-2 PCR by NAA Not Detected (NotDetected)
== END 2021-06-22 14:13 | disposition home or self-care (01) ==
LOC: LABBT 14:12
PROVIDERS: ATTEND Neurological Surgery
DX: Z01.812 Encounter for preprocedural laboratory examination (principal); M51.36 Other intervertebral disc degeneration, lumbar region; Z20.822 Contact with and (suspected) exposure to COVID-19
CPT/HCPCS: U0003; U0005

== ENCOUNTER 2021-06-27 06:14 | Inpatient (IN) | payer OTHER ==
[2021-06-19 15:13] VITALS: BMI 46.8
[2021-06-27] MEDS ORDERED: Midazolam HCl 2 mg/2 ml Vial ONE (06:48)
[2021-06-27] MEDS ORDERED: Ketamine 50 MG/ML (10ML VIAL) ONE (06:48)
[2021-06-27] MEDS ORDERED: Fentanyl 100 MCG/2 ML VIAL ONE ×4 (06:48→13:03)
[2021-06-27] MEDS ORDERED: Bupivacaine PF 0.5% 30 ML VIAL ONE (07:04)
[2021-06-27] MEDS ORDERED: EPINEPHrine 1 MG/ML AMP ONE (07:04)
[2021-06-27] MEDS ORDERED: Thrombin 5000 UNITS/5 ML VIAL ONE (07:04)
[2021-06-27] MEDS ORDERED: ceFAZolin 2 GM/Dextrose 50 ML IVPB ONE (07:35)
[2021-06-27] MEDS ORDERED: SUGAMMADEX SODIUM 200 MG/2 ML VIAL ONE ×2 (07:58→09:47)
[2021-06-27] MEDS ORDERED: Ketorolac Tromethamine 30 MG/ML VIAL ONE (08:05)
[2021-06-27] MEDS ORDERED: Ondansetron PF 4 MG/2 ML Vial ONE (08:05)
[2021-06-27] MEDS ORDERED: Rocuronium Bromide 10 MG/ML (10ML VIAL) ONE (08:05)
[2021-06-27] MEDS ORDERED: Dexamethasone 20 MG/5 ML VIAL ONE (08:05)
[2021-06-27] MEDS ORDERED: Glycopyrrolate 0.2 MG/ML 5 ML SYRINGE ONE (08:05)
[2021-06-27] MEDS ORDERED: ePHEDrine 50 MG/ML VIAL ONE (08:05)
[2021-06-27] MEDS ORDERED: PHENYLEPHRINE-NS 100 MCG/ML 10 ML SYRINGE ONE ×3 (08:05→11:48)
[2021-06-27] MEDS ORDERED: PROPOFOL 200 MG/20 ML VIAL ONE (08:05)
[2021-06-27] MEDS ORDERED: Lidocaine 1% PF 5 ML VIAL ONE (08:05)
[2021-06-27] MEDS ORDERED: ePHEDrine Sulfate 50 MG/10 ML VIAL ONE (09:11)
[2021-06-27] MEDS ORDERED: Promethazine HCl 25 MG/ML VIAL IVPB PRN (11:10)
[2021-06-27] MEDS ORDERED: Meperidine HCl/PF 25 MG/ML VIAL SLOW IVP PRN (11:10)
[2021-06-27] MEDS ORDERED: Ondansetron HCl/PF 4 MG/2 ML Vial IVP PRN (11:10)
[2021-06-27] MEDS ORDERED: Promethazine HCl 25 MG/ML VIAL IM PRN (11:10)
[2021-06-27] MEDS ORDERED: Phenylephrine 10 MG/ML VIAL ONE (11:47)
[2021-06-27] MEDS ORDERED: Morphine 4 MG/ML VIAL SLOW IVP PRN (12:07)
[2021-06-27] MEDS ORDERED: Mag-Al 1200 mg/1200 mg/30 ML UDCUP PO PRN (12:15)
[2021-06-27] MEDS ORDERED: Acetaminophen 650 MG Suppository PR PRN (12:15)
[2021-06-27] MEDS ORDERED: HYDROcodone/Acetaminophen 10/325 mg Tablet PO PRN (12:15)
[2021-06-27] MEDS ORDERED: Acetaminophen 325 MG TAB PO PRN (12:15)
[2021-06-27] MEDS ORDERED: diphenhydrAMINE 25 MG CAP PO PRN (12:15)
[2021-06-27] MEDS ORDERED: diphenhydrAMINE 50 MG/ML VIAL IVP PRN (12:15)
[2021-06-27] MEDS ORDERED: Bisacodyl 10 MG SUPP PR PRN (12:15)
[2021-06-27] MEDS ORDERED: Ondansetron PF 4 MG/2 ML Vial IM PRN (12:15)
[2021-06-27] MEDS ORDERED: Tamsulosin HCl 0.4 MG CAP ONE (12:47)
[2021-06-27] MEDS: Morphine 4 MG/ML VIAL SLOW IVP PRN ×4 (14:06→22:57)
[2021-06-27] MEDS: Sodium Chloride 0.9% 1,000 ML IV SCH (14:07)
[2021-06-27] MEDS: HYDROcodone/Acetaminophen 10/325 mg Tablet PO PRN ×2 (16:17→20:31)
[2021-06-27] MEDS: ceFAZolin 2 GM/Dextrose 50 ML 2 GM in Premix Bag 1 BAG IVPB SCH (17:23)
[2021-06-27] MEDS: Cyclobenzaprine 10 MG TAB PO PRN (19:43)
[2021-06-28] MEDS: HYDROcodone/Acetaminophen 10/325 mg Tablet PO PRN ×5 (00:48→23:13)
[2021-06-28] MEDS: ceFAZolin 2 GM/Dextrose 50 ML 2 GM in Premix Bag 1 BAG IVPB SCH (00:48)
[2021-06-28] MEDS: Sodium Chloride 0.9% 1,000 ML IV SCH ×2 (01:59→15:09)
[2021-06-28] MEDS: Tamsulosin HCl 0.4 MG CAP PO SCH (05:20)
[2021-06-28] MEDS: Morphine 4 MG/ML VIAL SLOW IVP PRN ×5 (05:21→21:16)
[2021-06-28 07:55] LABS: Hemoglobin 10.2 g/dL (14.0-18.0)
[2021-06-28] MEDS: Cyclobenzaprine 10 MG TAB PO PRN ×2 (09:08→18:52)
[2021-06-28] MEDS: Amlodipine 10 MG TAB PO SCH (09:08)
[2021-06-28] MEDS: DULoxetine 60 MG CAP PO SCH (09:09)
[2021-06-28] MEDS: Glimepiride 2 MG TAB PO SCH (09:09)
[2021-06-28] MEDS: metFORMIN 500 MG TAB PO SCH ×2 (09:09→18:08)
[2021-06-28] MEDS: Multivit, Therapeutic 1 TAB PO SCH (09:10)
[2021-06-28] MEDS ORDERED: SEMAGLUTIDE 1 MG SC SCH (12:00)
[2021-06-28] MEDS ORDERED: Atorvastatin Calcium 20 MG TAB PO SCH (21:00)
[2021-06-29] MEDS: HYDROcodone/Acetaminophen 10/325 mg Tablet PO PRN ×4 (03:23→14:34)
[2021-06-29] MEDS: Morphine 4 MG/ML VIAL SLOW IVP PRN ×4 (03:26→17:34)
[2021-06-29] MEDS: Sodium Chloride 0.9% 1,000 ML IV SCH (03:57)
[2021-06-29] MEDS: Glimepiride 2 MG TAB PO SCH (06:40)
[2021-06-29] MEDS: Tamsulosin HCl 0.4 MG CAP PO SCH (06:41)
[2021-06-29] MEDS: metFORMIN 500 MG TAB PO SCH ×2 (08:12→17:37)
[2021-06-29] MEDS: Amlodipine 10 MG TAB PO SCH (08:12)
[2021-06-29] MEDS: Multivit, Therapeutic 1 TAB PO SCH (08:12)
[2021-06-29] MEDS: DULoxetine 60 MG CAP PO SCH (08:12)
[2021-06-29] MEDS ORDERED: cefTRIAXone\\ROCEPHIN 2 GM in Sodium Chloride 0.9% 100 ML IVPB SCH (12:00)
[2021-06-29] MEDS ORDERED: Vancomycin 1 GM in Premix Bag 1 BAG IVPB SCH (13:00)
[2021-06-29 16:03] VITALS: BP 120/56; TEMP 98.4
[2021-06-29 16:30] LABS: #Basophils 0.1 thou/uL (0.0-0.2); #Eosinphils 0.1 thou/uL (0.0-0.7); #Lymphocytes 1.4 thou/uL (1.20-3.40); #Monocytes 0.6 thou/uL (0.11-0.59); #Neutrophils 6.5 thou/uL (1.40-6.50); %Basophils 0.8 % (0.0-1.0); %Eosinophils 0.8 % (0.0-10.0); %Lymphocytes 16.2 % (21.0-51.0); %Monocytes 6.5 % (0.0-10.0); %Neutrophils 75.8 % (42.0-75.0); Hemoglobin 9.5 g/dL (14.0-18.0); Mean Corpuscular HGB CONC 32.3 g/dL (32.0-36.0); Mean Corpuscular Volume 80.5 fL (78.0-98.0); Platelet Count 429 thou/uL (130-400); RBC Distribution Width 16.7 % (11.5-14.5); Red Blood Cell (RBC) Count 3.64 mill/uL (4.70-6.10); White Blood Cell (WBC) Count 8.6 thou/uL (4.8-10.8)
[2021-06-29 16:47] LABS: Vancomycin, Trough 17.7 ug/mL
[2021-06-29 16:49] LABS: Anion Gap 11 mmol/L (10-20); BUN (Urea Nitrogen) 11 mg/dL (8.4-25.7); CRP (Inflammatory) 4.84 mg/dL (= or < 0.5); Calc. Creatinine Clearance 168 mL/min (70-130); Calcium 8.8 mg/dL (7.8-10.44); Carbon Dioxide 25 mmol/L (23-31); Chloride 103 mmol/L (98-107); Glucose 131 mg/dL (80-115); Potassium 3.6 mmol/L (3.5-5.1); Sodium 135 mmol/L (136-145)
[2021-06-29] MEDS ORDERED: Dexamethasone 4 mg/ml Vial SLOW IVP SCH (17:45)
[2021-06-29] MEDS ORDERED: fentaNYL 50 mcg/hour Patch TD SCH (18:00)
[2021-06-30] MEDS ORDERED: Vancomycin 1 GM in Premix Bag 1 BAG IVPB SCH (02:00)
== END 2021-06-29 18:41 | disposition home or self-care (01) | DRG 460 ==
LOC: SDC 06:14 → SURG A 11:52 → OBSVTOIN 06-29 08:52
PROVIDERS: ADMIT Neurological Surgery; ATTEND Neurological Surgery
PROC: 0SG0071 Fusion of Lumbar Vertebral Joint with Autologous Tissue Substitute, Posterior Approach, Posterior Column, Open Approach (ICD-10-PCS; principal; 2021-06-27)
PROC: 01NB0ZZ Release Lumbar Nerve, Open Approach (ICD-10-PCS; 2021-06-27)
PROC: 02HV33Z Insertion of Infusion Device into Superior Vena Cava, Percutaneous Approach (ICD-10-PCS; 2021-06-29)
PROC: B548ZZA Ultrasonography of Superior Vena Cava, Guidance (ICD-10-PCS; 2021-06-29)
DX: M51.36 Other intervertebral disc degeneration, lumbar region (principal); Z68.42 Body mass index [BMI] 45.0-49.9, adult; Z20.822 Contact with and (suspected) exposure to COVID-19; E11.9 Type 2 diabetes mellitus without complications; I10 Essential (primary) hypertension; E78.5 Hyperlipidemia, unspecified; Z96.641 Presence of right artificial hip joint; G47.33 Obstructive sleep apnea (adult) (pediatric); E66.01 Morbid (severe) obesity due to excess calories; F32.A Depression, unspecified; G89.4 Chronic pain syndrome; Z79.899 Other long term (current) drug therapy; Z79.84 Long term (current) use of oral hypoglycemic drugs; Z88.5 Allergy status to narcotic agent
CPT/HCPCS: 36415; 36416; 36569; 76000; 80048; 80202; 85014; 85018; 85025; 86140; 93005; 93010; 93970; C1713; C1751; C1768; J0171; J0690; J0696; J1100; J1885; J2250; J2270; J2370; J2405; J2704; J3010; J3370; J3490; J7050; S0020

== ENCOUNTER 2021-07-19 08:44 | Emergency (ER) | payer OTHER | END 2021-07-19 11:29 | disposition home or self-care (01) | LOC: ERS 08:44 | DX: T82.898A Other specified complication of vascular prosthetic devices, implants and grafts, initial encounter (principal); E78.5 Hyperlipidemia, unspecified; I10 Essential (primary) hypertension; E11.69 Type 2 diabetes mellitus with other specified complication; M86.9 Osteomyelitis, unspecified; Z79.899 Other long term (current) drug therapy; Z79.82 Long term (current) use of aspirin; Z79.84 Long term (current) use of oral hypoglycemic drugs | CPT/HCPCS: 36569; 99283; C1751 ==

== ENCOUNTER 2021-07-26 14:09 | Emergency (ER) | payer OTHER ==
[2021-07-26] MEDS ORDERED: Ketorolac Tromethamine 30 MG/ML VIAL ONE (15:32)
== END 2021-07-26 18:36 | disposition home or self-care (01) ==
LOC: ERS 14:09
DX: G89.4 Chronic pain syndrome (principal); M25.552 Pain in left hip; I10 Essential (primary) hypertension; E11.9 Type 2 diabetes mellitus without complications; E78.5 Hyperlipidemia, unspecified; M86.9 Osteomyelitis, unspecified; Z79.82 Long term (current) use of aspirin; Z79.84 Long term (current) use of oral hypoglycemic drugs; Z79.01 Long term (current) use of anticoagulants; Z79.899 Other long term (current) drug therapy
CPT/HCPCS: 93005; 96372; J1885

== ENCOUNTER 2021-09-28 17:07 | Inpatient (IN) | payer OTHER ==
[~2021-09-28 17:07] MED LIST changes: -Iopamidol 370 76% 50 ML VIAL FS ONE; +Iopamidol-370 76% 500 ML 1 ML ONE
[2021-09-28] MEDS ORDERED: Morphine 4 MG/ML VIAL ONE ×3 (18:08→21:51)
[2021-09-28] MEDS ORDERED: Ondansetron PF 4 MG/2 ML Vial ONE (18:08)
[2021-09-28 18:11] LABS: #Eosinphils 0.2 thou/uL (0.0-0.7); #Lymphocytes 1.2 thou/uL (1.20-3.40); #Monocytes 0.4 thou/uL (0.11-0.59); #Neutrophils 4.5 thou/uL (1.40-6.50); %Basophils 0.3 % (0.0-1.0); %Eosinophils 3.3 % (0.0-10.0); %Lymphocytes 18.7 % (21.0-51.0); %Monocytes 6.2 % (0.0-10.0); %Neutrophils 71.5 % (42.0-75.0); Hemoglobin 9.5 g/dL (14.0-18.0); Mean Corpuscular HGB CONC 31.1 g/dL (32.0-36.0); Mean Corpuscular Hemoglobin 24.3 pg (27.0-31.0); Platelet Count 577 thou/uL (130-400); RBC Distribution Width 15.9 % (11.5-14.5); Red Blood Cell (RBC) Count 3.91 mill/uL (4.70-6.10); White Blood Cell (WBC) Count 6.3 thou/uL (4.8-10.8)
[2021-09-28 18:35] LABS: Lipase 4 U/L (8-78); Magnesium 1.9 mg/dL (1.6-2.6)
[2021-09-28 19:05] LABS: Bilirubin Negative (Negative); Blood, Urine Negative (Negative); Clarity Clear (Clear); Glucose, Urine (Dipstick) Normal (Negative); Ketone, Urine Negative (Negative); Leukocyte Negative Leu/uL (Negative); Nitrite Negative (Negative); Protein, Urine (Dipstick) 10 mg/dL (Neg-Trace); Specific Gravity, Urine 1.022 (1.002-1.036); Urobilinogen Normal mg/dL (Less than 2); pH, Urine 5.5 (5.0-9.0)
[2021-09-28] MEDS ORDERED: cefTRIAXone\\ROCEPHIN 2 GM VIAL ONE (22:06)
[2021-09-28] MEDS ORDERED: HumaLOG 300 UNITS/3 ML VIAL SC PRN ×2 (22:29)
[2021-09-28] MEDS ORDERED: Dextrose 50% Abboject 50 ML SYRINGE SLOW IVP PRN (22:29)
[2021-09-28] MEDS ORDERED: Dextrose 5% in Water 1,000 ML IV PRN (22:29)
[2021-09-28] MEDS ORDERED: Ondansetron PF 4 MG/2 ML Vial IVP PRN (22:29)
[2021-09-28] MEDS ORDERED: Bisacodyl 10 MG SUPP PR PRN (22:29)
[2021-09-28] MEDS ORDERED: Acetaminophen 325 MG TAB PO PRN (22:29)
[2021-09-28] MEDS ORDERED: hydrALAZINE 20 MG/ML VIAL SLOW IVP PRN (22:32)
[2021-09-28] MEDS ORDERED: FENTANYL TOP SCH (22:45)
[2021-09-28] MEDS ORDERED: tiZANidine HCl 4 MG TAB PO SCH (23:15)
[2021-09-29 00:15] LABS: Anion Gap 17 mmol/L (10-20); BUN (Urea Nitrogen) 12 mg/dL (8.4-25.7); Calc. Creatinine Clearance 0 mL/min (70-130); Calcium 9.4 mg/dL (7.8-10.44); Carbon Dioxide 18 mmol/L (23-31); Chloride 105 mmol/L (98-107); Glucose 95 mg/dL (80-115); Potassium 4.2 mmol/L (3.5-5.1); Sodium 136 mmol/L (136-145)
[2021-09-29 00:29] LABS: Troponin I Less than 0.010 ng/mL (< 0.028)
[2021-09-29 00:35] VITALS: BMI 44.0
[2021-09-29] MEDS: Morphine 2 MG/ML VIAL SLOW IVP PRN ×4 (01:12→16:09)
[2021-09-29 03:09] LABS: Troponin I Less than 0.010 ng/mL (< 0.028)
[2021-09-29 05:13] LABS: #Eosinphils 0.2 thou/uL (0.0-0.7); #Lymphocytes 1.3 thou/uL (1.20-3.40); #Monocytes 0.4 thou/uL (0.11-0.59); #Neutrophils 3.2 thou/uL (1.40-6.50); %Basophils 0.6 % (0.0-1.0); %Eosinophils 3.4 % (0.0-10.0); %Lymphocytes 25.3 % (21.0-51.0); %Monocytes 7.6 % (0.0-10.0); %Neutrophils 63.1 % (42.0-75.0); Hemoglobin 8.8 g/dL (14.0-18.0); Mean Corpuscular Hemoglobin 24.7 pg (27.0-31.0); Mean Corpuscular Volume 79.7 fL (78.0-98.0); Mean Platelet Volume 6.1 fL (7.4-10.4); Platelet Count 509 thou/uL (130-400); RBC Distribution Width 15.7 % (11.5-14.5); Red Blood Cell (RBC) Count 3.54 mill/uL (4.70-6.10)
[2021-09-29 05:32] LABS: ALT (SGPT) 16 U/L (8-55); AST (SGOT) 18 U/L (5-34); Albumin 3.6 g/dL (3.4-4.8); Alkaline Phosphatase 132 U/L (40-110); Anion Gap 14 mmol/L (10-20); BUN (Urea Nitrogen) 10 mg/dL (8.4-25.7); Bilirubin, Total 0.3 mg/dL (0.2-1.2); Calc. Creatinine Clearance 156 mL/min (70-130); Calcium 9.1 mg/dL (7.8-10.44); Carbon Dioxide 22 mmol/L (23-31); Chloride 106 mmol/L (98-107); Globulin 3.4 g/dL (2.4-3.5); Glucose 121 mg/dL (80-115); Potassium 4.2 mmol/L (3.5-5.1); Sodium 138 mmol/L (136-145)
[2021-09-29 05:37] LABS: Troponin I Less than 0.010 ng/mL (< 0.028)
[2021-09-29] MEDS: Doxycycline 100 MG CAP PO SCH ×2 (08:01→21:27)
[2021-09-29] MEDS: Amlodipine 5 MG TAB PO SCH (08:01)
[2021-09-29] MEDS: metFORMIN 500 MG TAB PO SCH (08:01)
[2021-09-29] MEDS: DULoxetine 60 MG CAP PO SCH (08:01)
[2021-09-29] MEDS: tiZANidine HCl 4 MG TAB PO SCH ×3 (08:02→21:27)
[2021-09-29] MEDS: Apixaban 5 MG TAB PO SCH ×2 (08:02→21:26)
[2021-09-29] MEDS ORDERED: Aspirin 325 MG TAB PO SCH (09:00)
[2021-09-29] MEDS ORDERED: Glimepiride 2 MG TAB PO SCH (09:00)
[2021-09-29] MEDS ORDERED: Enoxaparin Sodium 40 MG/0.4 ML SYRINGE SC SCH (09:00)
[2021-09-29] MEDS: Rifampin 300 MG CAP PO SCH ×2 (11:31→21:26)
[2021-09-29] MEDS ORDERED: HYDROcodone/Acetaminophen 10/325 mg Tablet PO PRN (12:15)
[2021-09-29] MEDS ORDERED: fentaNYL 50 mcg/hour Patch TD SCH (13:00)
[2021-09-29] MEDS ORDERED: HumaLOG 300 UNITS/3 ML VIAL SC PRN (14:16)
[2021-09-29] MEDS ORDERED: Nitroglycerin 0.4 MG TAB (25 Tab Bottle) SL PRN (15:51)
[2021-09-29 16:18] LABS: SARS-CoV-2 PCR by NAA Not Detected (NotDetected)
[2021-09-29] MEDS ORDERED: metFORMIN 500 MG TAB PO SCH (17:00)
[2021-09-29] MEDS ORDERED: Atorvastatin Calcium 20 MG TAB PO SCH (21:00)
[2021-09-29] MEDS ORDERED: Bisacodyl 10 MG SUPP PR SCH (21:00)
[2021-09-29] MEDS: HYDROcodone/Acetaminophen 10/325 mg Tablet PO PRN (21:27)
[2021-09-29] MEDS: Senokot S 8.6-50 MG TAB PO SCH (21:27)
[2021-09-30] MEDS: Morphine 2 MG/ML VIAL SLOW IVP PRN ×2 (01:57→09:54)
[2021-09-30 05:14] VITALS: TEMP 98.9
[2021-09-30] MEDS ORDERED: Polyethylene Glycol 3350 17 GM Packet PO SCH (09:00)
[2021-09-30] MEDS ORDERED: Aspirin 81 mg Enteric Coated Tablet PO SCH (09:00)
[2021-09-30] MEDS ORDERED: Cyanocobalamin (Vitamin B-12) 1,000 MCG TAB PO SCH (09:00)
[2021-09-30] MEDS ORDERED: Regadenoson 0.4 MG/5 ML SYRINGE ONE (09:22)
[2021-09-30] MEDS: Amlodipine 5 MG TAB PO SCH (12:45)
[2021-09-30] MEDS: Apixaban 5 MG TAB PO SCH (12:46)
[2021-09-30] MEDS: DULoxetine 60 MG CAP PO SCH (12:47)
[2021-09-30] MEDS: Doxycycline 100 MG CAP PO SCH (12:47)
[2021-09-30] MEDS: Senokot S 8.6-50 MG TAB PO SCH (12:48)
[2021-09-30] MEDS: tiZANidine HCl 4 MG TAB PO SCH (12:48)
[2021-09-30] MEDS: HYDROcodone/Acetaminophen 10/325 mg Tablet PO PRN (12:49)
[2021-09-30] MEDS: metFORMIN 500 MG TAB PO SCH (13:05)
[2021-09-30] MEDS: Rifampin 300 MG CAP PO SCH (13:21)
[2021-09-30 14:10] VITALS: BP 133/62
== END 2021-09-30 14:47 | disposition home or self-care (01) | DRG 313 ==
LOC: ERS 17:07 → 2SW 22:20 → OBSVTOIN 09-30 14:38
PROVIDERS: ADMIT Internal Medicine; ATTEND Internal Medicine
DX: R07.89 Other chest pain (principal); Z68.41 Body mass index [BMI] 40.0-44.9, adult; Z20.822 Contact with and (suspected) exposure to COVID-19; E11.9 Type 2 diabetes mellitus without complications; E78.5 Hyperlipidemia, unspecified; E66.9 Obesity, unspecified; I10 Essential (primary) hypertension; Z96.642 Presence of left artificial hip joint; I25.10 Atherosclerotic heart disease of native coronary artery without angina pectoris; G89.4 Chronic pain syndrome; G47.33 Obstructive sleep apnea (adult) (pediatric); D53.9 Nutritional anemia, unspecified; Z88.5 Allergy status to narcotic agent; Z79.84 Long term (current) use of oral hypoglycemic drugs; Z79.899 Other long term (current) drug therapy; Z99.89 Dependence on other enabling machines and devices; Z98.1 Arthrodesis status
CPT/HCPCS: 36415; 36416; 71045; 71275; 78452; 80048; 80053; 81003; 83605; 83690; 83735; 83880; 84443; 84484; 85025; 85379; 87040; 87086; 93005; 93017; 93306; 93880; 94760; 96365; 96375; 96376; A9500; J0696; J2270; J2405; J3370; J7030; U0003; U0005

== ENCOUNTER 2021-10-15 14:26 | Emergency (ER) | payer OTHER ==
[2021-10-15] MEDS ORDERED: Ketorolac Tromethamine 30 MG/ML VIAL ONE (15:47)
== END 2021-10-15 18:01 | disposition home or self-care (01) ==
LOC: ERS 14:26
DX: S86.912A Strain of unspecified muscle(s) and tendon(s) at lower leg level, left leg, initial encounter (principal); S80.11XA Contusion of right lower leg, initial encounter; I10 Essential (primary) hypertension; E11.9 Type 2 diabetes mellitus without complications; E78.5 Hyperlipidemia, unspecified; M86.9 Osteomyelitis, unspecified; W18.2XXA Fall in (into) shower or empty bathtub, initial encounter; Y93.E1 Activity, personal bathing and showering; Z79.82 Long term (current) use of aspirin; Z79.01 Long term (current) use of anticoagulants; Z79.84 Long term (current) use of oral hypoglycemic drugs; Z79.899 Other long term (current) drug therapy
CPT/HCPCS: 72100; J1885

== ENCOUNTER 2021-10-24 09:45 | Outpatient (CLI) | payer OTHER ==
[2021-10-24 20:34] LABS: SARS-CoV-2 PCR by NAA Not Detected (NotDetected)
== END 2021-10-24 09:46 | disposition home or self-care (01) ==
LOC: LABBT 09:45
PROVIDERS: ATTEND Neurological Surgery
DX: M54.16 Radiculopathy, lumbar region (principal); Z20.822 Contact with and (suspected) exposure to COVID-19
CPT/HCPCS: U0003; U0005

== ENCOUNTER 2021-10-29 10:46 | Day surgery (SDC) | payer OTHER ==
[2021-10-26 14:19] VITALS: BMI 43.3
[2021-10-29] MEDS ORDERED: Ondansetron PF 4 MG/2 ML Vial ONE (12:45)
[2021-10-29] MEDS ORDERED: PHENYLEPHRINE-NS 100 MCG/ML 10 ML SYRINGE ONE (12:45)
[2021-10-29] MEDS ORDERED: PROPOFOL 200 MG/20 ML VIAL ONE (12:45)
[2021-10-29] MEDS ORDERED: Lidocaine 1% PF 5 ML VIAL ONE (12:45)
[2021-10-29 13:14] LABS: Calc. Creatinine Clearance 156 mL/min (70-130)
[2021-10-29] MEDS ORDERED: Fentanyl 100 MCG/2 ML VIAL ONE (13:22)
[2021-10-29] MEDS ORDERED: Labetalol HCl 100 MG/20 ML VIAL ONE (14:09)
== END 2021-10-29 15:03 | disposition home or self-care (01) ==
LOC: SDC/OP 10:46
PROVIDERS: ATTEND Neurological Surgery
DX: M54.16 Radiculopathy, lumbar region (principal); M48.061 Spinal stenosis, lumbar region without neurogenic claudication; M47.819 Spondylosis without myelopathy or radiculopathy, site unspecified; E11.9 Type 2 diabetes mellitus without complications; I10 Essential (primary) hypertension; G47.30 Sleep apnea, unspecified; E66.9 Obesity, unspecified; Z68.41 Body mass index [BMI] 40.0-44.9, adult; Z79.84 Long term (current) use of oral hypoglycemic drugs; Z79.899 Other long term (current) drug therapy; Z88.5 Allergy status to narcotic agent; Z98.1 Arthrodesis status
CPT/HCPCS: 36415; 72158; 82565; J3010

== ENCOUNTER 2021-11-11 07:22 | Emergency (ER) | payer OTHER ==
[2021-11-11 07:50] LABS: #Eosinphils 0.2 thou/uL (0.0-0.7); #Lymphocytes 1.7 thou/uL (1.20-3.40); #Monocytes 0.4 thou/uL (0.11-0.59); #Neutrophils 2.5 thou/uL (1.40-6.50); %Basophils 0.9 % (0.0-1.0); %Eosinophils 3.8 % (0.0-10.0); %Lymphocytes 34.6 % (21.0-51.0); %Monocytes 8.7 % (0.0-10.0); Hemoglobin 12.6 g/dL (14.0-18.0); Mean Corpuscular HGB CONC 31.9 g/dL (32.0-36.0); Mean Corpuscular Hemoglobin 25.8 pg (27.0-31.0); Mean Platelet Volume 6.6 fL (7.4-10.4); Platelet Count 454 thou/uL (130-400); RBC Distribution Width 17.7 % (11.5-14.5); Red Blood Cell (RBC) Count 4.86 mill/uL (4.70-6.10); White Blood Cell (WBC) Count 4.9 thou/uL (4.8-10.8)
[2021-11-11] MEDS ORDERED: Morphine 4 MG/ML VIAL ONE ×2 (08:05→11:38)
[2021-11-11] MEDS ORDERED: Ondansetron PF 4 MG/2 ML Vial ONE (08:06)
[2021-11-11 08:13] LABS: ALT (SGPT) 17 U/L (8-55); AST (SGOT) 18 U/L (5-34); Albumin 4.3 g/dL (3.4-4.8); Alkaline Phosphatase 137 U/L (40-110); Anion Gap 14 mmol/L (10-20); BUN (Urea Nitrogen) 11 mg/dL (8.4-25.7); Bilirubin, Total 0.4 mg/dL (0.2-1.2); Calc. Creatinine Clearance 0 mL/min (70-130); Calcium 9.5 mg/dL (7.8-10.44); Carbon Dioxide 25 mmol/L (23-31); Chloride 104 mmol/L (98-107); Globulin 3.8 g/dL (2.4-3.5); Glucose 98 mg/dL (80-115); Potassium 4.3 mmol/L (3.5-5.1); Protein, Total 8.1 g/dL (5.8-8.1); Sodium 139 mmol/L (136-145)
[2021-11-11 13:19] LABS: Troponin I Less than 0.010 ng/mL (< 0.028)
== END 2021-11-11 14:10 | disposition home or self-care (01) ==
LOC: ERS 07:22
DX: R07.89 Other chest pain (principal); E11.9 Type 2 diabetes mellitus without complications; E78.5 Hyperlipidemia, unspecified; I10 Essential (primary) hypertension; Z79.899 Other long term (current) drug therapy; Z79.82 Long term (current) use of aspirin; Z79.84 Long term (current) use of oral hypoglycemic drugs
CPT/HCPCS: 36415; 71045; 71275; 72100; 72170; 80053; 84484; 85025; 85379; 93005; 94760; 96374; 96375; 96376; J2270; J2405

== ENCOUNTER 2021-11-16 16:23 | Observation (INO) | payer OTHER ==
[2021-11-16 18:22] LABS: #Eosinphils 0.2 thou/uL (0.0-0.7); #Lymphocytes 1.4 thou/uL (1.20-3.40); #Monocytes 0.4 thou/uL (0.11-0.59); %Basophils 0.9 % (0.0-1.0); %Eosinophils 3.8 % (0.0-10.0); %Lymphocytes 28.2 % (21.0-51.0); %Monocytes 7.5 % (0.0-10.0); %Neutrophils 59.6 % (42.0-75.0); Hemoglobin 12.9 g/dL (14.0-18.0); Mean Corpuscular HGB CONC 30.5 g/dL (32.0-36.0); Mean Corpuscular Hemoglobin 25.4 pg (27.0-31.0); Mean Corpuscular Volume 83.4 fL (78.0-98.0); Mean Platelet Volume 6.9 fL (7.4-10.4); Platelet Count 449 thou/uL (130-400); RBC Distribution Width 18.2 % (11.5-14.5); Red Blood Cell (RBC) Count 5.06 mill/uL (4.70-6.10)
[2021-11-16 18:43] LABS: ALT (SGPT) 35 U/L (8-55); AST (SGOT) 22 U/L (5-34); Albumin 4.3 g/dL (3.4-4.8); Alkaline Phosphatase 123 U/L (40-110); Anion Gap 15 mmol/L (10-20); BUN (Urea Nitrogen) 8 mg/dL (8.4-25.7); Bilirubin, Total 0.2 mg/dL (0.2-1.2); Calc. Creatinine Clearance 0 mL/min (70-130); Calcium 9.9 mg/dL (7.8-10.44); Carbon Dioxide 25 mmol/L (23-31); Chloride 104 mmol/L (98-107); Globulin 4.2 g/dL (2.4-3.5); Glucose 106 mg/dL (80-115); Potassium 4.2 mmol/L (3.5-5.1); Protein, Total 8.5 g/dL (5.8-8.1); Sodium 140 mmol/L (136-145)
[2021-11-16] MEDS ORDERED: Morphine 4 MG/ML VIAL ONE (20:04)
[2021-11-16] MEDS ORDERED: Ondansetron PF 4 MG/2 ML Vial ONE (20:05)
[2021-11-16] MEDS ORDERED: Acetaminophen 325 MG TAB PO PRN (21:23)
[2021-11-16] MEDS ORDERED: Acetaminophen 650 MG Suppository PR PRN (21:23)
[2021-11-16] MEDS ORDERED: HumaLOG 300 UNITS/3 ML VIAL SC PRN ×2 (21:23)
[2021-11-16] MEDS ORDERED: Ondansetron ODT 4 MG TAB PO PRN (21:23)
[2021-11-16] MEDS ORDERED: Dextrose 50% Abboject 50 ML SYRINGE SLOW IVP PRN (21:23)
[2021-11-16] MEDS ORDERED: Nitroglycerin 0.4 MG TAB (25 Tab Bottle) SL PRN (21:23)
[2021-11-16] MEDS ORDERED: Dextrose 5% in Water 1,000 ML IV PRN (21:23)
[2021-11-16] MEDS ORDERED: Ondansetron PF 4 MG/2 ML Vial IVP PRN (21:23)
[2021-11-16 23:20] LABS: Troponin I Less than 0.010 ng/mL (< 0.028)
[2021-11-16 23:27] VITALS: BMI 42.9
[2021-11-17] MEDS: Morphine 4 MG/ML VIAL SLOW IVP PRN ×2 (01:44→06:25)
[2021-11-17 02:20] LABS: Troponin I Less than 0.010 ng/mL (< 0.028)
[2021-11-17 05:14] LABS: #Eosinphils 0.2 thou/uL (0.0-0.7); #Lymphocytes 1.4 thou/uL (1.20-3.40); #Monocytes 0.4 thou/uL (0.11-0.59); #Neutrophils 2.3 thou/uL (1.40-6.50); %Basophils 0.5 % (0.0-1.0); %Eosinophils 4.9 % (0.0-10.0); %Lymphocytes 32.2 % (21.0-51.0); %Monocytes 8.6 % (0.0-10.0); %Neutrophils 53.8 % (42.0-75.0); Hemoglobin 11.3 g/dL (14.0-18.0); Mean Corpuscular HGB CONC 31.1 g/dL (32.0-36.0); Mean Corpuscular Hemoglobin 25.7 pg (27.0-31.0); Mean Corpuscular Volume 82.5 fL (78.0-98.0); Platelet Count 369 thou/uL (130-400); RBC Distribution Width 17.8 % (11.5-14.5); Red Blood Cell (RBC) Count 4.42 mill/uL (4.70-6.10); White Blood Cell (WBC) Count 4.4 thou/uL (4.8-10.8)
[2021-11-17 05:41] LABS: Anion Gap 13 mmol/L (10-20); BUN (Urea Nitrogen) 7 mg/dL (8.4-25.7); Calc. Creatinine Clearance 154 mL/min (70-130); Calcium 9.2 mg/dL (7.8-10.44); Carbon Dioxide 24 mmol/L (23-31); Chloride 106 mmol/L (98-107); Glucose 112 mg/dL (80-115); Potassium 3.7 mmol/L (3.5-5.1); Sodium 139 mmol/L (136-145)
[2021-11-17] MEDS ORDERED: Enoxaparin Sodium 40 MG/0.4 ML SYRINGE SC SCH (09:00)
[2021-11-17] MEDS ORDERED: Aspirin Chewable 81 MG TAB PO SCH (09:00)
[2021-11-17] MEDS ORDERED: Morphine 4 MG/ML VIAL SLOW IVP SCH (10:15)
[2021-11-17 11:05] VITALS: BP 174/84; TEMP 98.9
== END 2021-11-17 13:25 | disposition home or self-care (01) ==
LOC: ERS 16:23 → 2SW 20:33
PROVIDERS: ADMIT Internal Medicine; ATTEND Internal Medicine
DX: I82.612 Acute embolism and thrombosis of superficial veins of left upper extremity (principal); R07.89 Other chest pain; G89.29 Other chronic pain; M54.50 Low back pain, unspecified; I11.0 Hypertensive heart disease with heart failure; I50.30 Unspecified diastolic (congestive) heart failure; E11.9 Type 2 diabetes mellitus without complications; E78.5 Hyperlipidemia, unspecified; D64.9 Anemia, unspecified; Z79.82 Long term (current) use of aspirin; Z79.84 Long term (current) use of oral hypoglycemic drugs; Z79.899 Other long term (current) drug therapy; Z88.5 Allergy status to narcotic agent; Z20.822 Contact with and (suspected) exposure to COVID-19
CPT/HCPCS: 36415; 36416; 71045; 80048; 80053; 84484; 85025; 93005; 94760; 96374; 96375; 96376; G0378; J2270; J2405; U0003; U0005

== ENCOUNTER 2021-11-21 04:58 | Emergency (ER) | payer OTHER ==
[2021-11-21] MEDS ORDERED: Nitroglycerin 2% Ointment 1 INCH/1 GM Packet ONE (05:31)
[2021-11-21 06:06] LABS: Hemoglobin 11.6 g/dL (14.0-18.0); Mean Corpuscular HGB CONC 29.8 g/dL (32.0-36.0); Mean Corpuscular Volume 83.8 fL (78.0-98.0); Mean Platelet Volume 7.4 fL (7.4-10.4); Platelet Count 405 thou/uL (130-400); RBC Distribution Width 17.8 % (11.5-14.5); Red Blood Cell (RBC) Count 4.66 mill/uL (4.70-6.10); White Blood Cell (WBC) Count 4.8 thou/uL (4.8-10.8)
[2021-11-21 06:08] LABS: ALT (SGPT) 25 U/L (8-55); AST (SGOT) 22 U/L (5-34); Albumin 3.8 g/dL (3.4-4.8); Alkaline Phosphatase 110 U/L (40-110); Anion Gap 14 mmol/L (10-20); BUN (Urea Nitrogen) 9 mg/dL (8.4-25.7); Bilirubin, Total Less than 0.2 mg/dL (0.2-1.2); Calc. Creatinine Clearance 0 mL/min (70-130); Calcium 9.2 mg/dL (7.8-10.44); Carbon Dioxide 21 mmol/L (23-31); Chloride 106 mmol/L (98-107); Estimated GFR 98; Globulin 3.7 g/dL (2.4-3.5); Glucose 87 mg/dL (80-115); Lipase 4 U/L (8-78); Protein, Total 7.5 g/dL (5.8-8.1); Sodium 137 mmol/L (136-145)
[2021-11-21 06:22] LABS: Band 2 % (5-11); Eosinophils 1 % (0-10); Hypochromia SLIGHT = 6-15 cells (100X) (0-5/hpf); Lymphocytes 42 % (21-51); MDiff Complete? YES; Monocytes 6 % (0-10); Neutrophil 48 % (42-75); Platelet Morphology Comment Appears Increased; Reactive Lymphocytes 1 % (0-10)
== END 2021-11-21 06:23 | disposition home or self-care (01) ==
LOC: ERS 04:58
DX: R07.2 Precordial pain (principal); M25.552 Pain in left hip; G89.29 Other chronic pain; I10 Essential (primary) hypertension; E11.9 Type 2 diabetes mellitus without complications; E78.5 Hyperlipidemia, unspecified; M86.9 Osteomyelitis, unspecified; Z79.82 Long term (current) use of aspirin; Z79.4 Long term (current) use of insulin; Z79.899 Other long term (current) drug therapy
CPT/HCPCS: 36415; 71045; 80053; 83690; 84484; 85025; 93005

== ENCOUNTER 2022-05-31 12:55 | Outpatient (CLI) | payer OTHER ==
[2022-05-31 14:40] LABS: Anion Gap 17 mmol/L (10-20); BUN (Urea Nitrogen) 10 mg/dL (8.4-25.7); Calc. Creatinine Clearance 0 mL/min (70-130); Calcium 9.5 mg/dL (7.8-10.44); Carbon Dioxide 22 mmol/L (23-31); Chloride 104 mmol/L (98-107); Estimated GFR 87; Glucose 96 mg/dL (80-115); Potassium 4.7 mmol/L (3.5-5.1); Sodium 138 mmol/L (136-145)
== END 2022-05-31 12:56 | disposition home or self-care (01) ==
LOC: LABBT 12:55
PROVIDERS: ATTEND Neurological Surgery
DX: Z01.818 Encounter for other preprocedural examination (principal); M54.16 Radiculopathy, lumbar region
CPT/HCPCS: 80048; 93005; 93010

== ENCOUNTER 2022-05-31 13:00 | Observation (INO) | payer OTHER ==
[2022-06-03 09:24] VITALS: BMI 42.5
[2022-06-05] MEDS ORDERED: Bupivacaine HCl 0.5%/Epinephrine 1:200,000/PF 30 ml Vial ONE (06:13)
[2022-06-05] MEDS ORDERED: Thrombin 5000 UNITS/5 ML VIAL ONE (06:13)
[2022-06-05] MEDS ORDERED: SUGAMMADEX SODIUM 200 MG/2 ML VIAL ONE (06:37)
[2022-06-05] MEDS ORDERED: Famotidine/PF 20 mg/2ml Vial ONE (06:37)
[2022-06-05] MEDS ORDERED: Fentanyl 250 MCG/5 ML VIAL ONE (06:37)
[2022-06-05] MEDS ORDERED: CEFAZOLIN 2 GM VIAL ONE (06:41)
[2022-06-05] MEDS ORDERED: Sodium Chloride 0.9% 100 ML ONE (06:41)
[2022-06-05] MEDS ORDERED: Ketorolac Tromethamine 30 MG/ML VIAL ONE (07:10)
[2022-06-05] MEDS ORDERED: PROPOFOL 200 MG/20 ML VIAL ONE (07:10)
[2022-06-05] MEDS ORDERED: Metoclopramide HCl 10 MG/2 ML VIAL ONE (07:10)
[2022-06-05] MEDS ORDERED: Ondansetron PF 4 MG/2 ML Vial ONE (07:10)
[2022-06-05] MEDS ORDERED: Rocuronium Bromide 10 MG/ML (10ML VIAL) ONE (07:10)
[2022-06-05] MEDS ORDERED: Dexamethasone 20 MG/5 ML VIAL ONE ×2 (07:10)
[2022-06-05] MEDS ORDERED: Lidocaine 1% PF 5 ML VIAL ONE (07:10)
[2022-06-05] MEDS ORDERED: PHENYLEPHRINE-NS 100 MCG/ML 10 ML SYRINGE ONE (07:10)
[2022-06-05] MEDS ORDERED: Phenylephrine 10 MG/ML VIAL ONE (07:51)
[2022-06-05 07:52] LABS: SARS-CoV-2 NAA Rapid Test Not Detected (NotDetected)
[2022-06-05] MEDS ORDERED: Ondansetron HCl/PF 4 MG/2 ML Vial IVP PRN (09:09)
[2022-06-05] MEDS ORDERED: Promethazine HCl 25 MG/ML VIAL IM PRN (09:09)
[2022-06-05] MEDS ORDERED: Bisacodyl 10 MG SUPP PR PRN (09:49)
[2022-06-05] MEDS ORDERED: Acetaminophen 325 MG TAB PO PRN (09:49)
[2022-06-05] MEDS ORDERED: Cyclobenzaprine 10 MG TAB PO PRN (09:49)
[2022-06-05] MEDS ORDERED: Ondansetron PF 4 MG/2 ML Vial IVP PRN (09:49)
[2022-06-05] MEDS ORDERED: HYDROcodone/Acetaminophen 10/325 mg Tablet PO PRN (09:49)
[2022-06-05] MEDS ORDERED: Polyethylene Glycol 3350 17 GM Packet PO PRN (09:53)
[2022-06-05] MEDS: Sodium Chloride 0.9% 1,000 ML IV SCH ×2 (10:05→22:47)
[2022-06-05] MEDS ORDERED: Fentanyl 100 MCG/2 ML VIAL ONE ×2 (10:15→10:42)
[2022-06-05] MEDS ORDERED: Morphine 4 MG/ML VIAL SLOW IVP PRN (10:19)
[2022-06-05] MEDS ORDERED: HYDROcodone/Acetaminophen 10/325 mg Tablet ONE (12:12)
[2022-06-05] MEDS: HYDROcodone/Acetaminophen 10/325 mg Tablet PO PRN ×2 (12:13→18:03)
[2022-06-05] MEDS ORDERED: Morphine 2 MG/ML VIAL ONE (13:03)
[2022-06-05] MEDS: Gabapentin 300 MG CAP PO SCH ×2 (15:40→20:37)
[2022-06-05] MEDS: CEFAZOLIN 2 GM in Sodium Chloride 0.9% 100 ML IVPB SCH ×2 (15:40→22:45)
[2022-06-05] MEDS: Morphine 4 MG/ML VIAL SLOW IVP PRN ×2 (15:41→22:39)
[2022-06-05] MEDS: metFORMIN 500 MG TAB PO SCH (20:37)
[2022-06-05] MEDS: Doxycycline 100 MG CAP PO SCH (20:37)
[2022-06-05] MEDS ORDERED: Atorvastatin Calcium 20 MG TAB PO SCH (21:00)
[2022-06-06] MEDS: Morphine 4 MG/ML VIAL SLOW IVP PRN ×2 (05:40→13:12)
[2022-06-06] MEDS: HYDROcodone/Acetaminophen 10/325 mg Tablet PO PRN ×3 (05:41→13:11)
[2022-06-06] MEDS ORDERED: Tamsulosin HCl 0.4 MG CAP PO SCH (06:00)
[2022-06-06] MEDS: CEFAZOLIN 2 GM in Sodium Chloride 0.9% 100 ML IVPB SCH (06:26)
[2022-06-06] MEDS ORDERED: Glimepiride 2 MG TAB PO SCH (07:30)
[2022-06-06 07:53] VITALS: TEMP 98.1
[2022-06-06] MEDS: Gabapentin 300 MG CAP PO SCH (08:23)
[2022-06-06] MEDS: metFORMIN 500 MG TAB PO SCH (08:23)
[2022-06-06] MEDS: Doxycycline 100 MG CAP PO SCH (08:23)
[2022-06-06] MEDS ORDERED: Cyanocobalamin (Vitamin B-12) 1,000 MCG TAB PO SCH (09:00)
[2022-06-06] MEDS ORDERED: DULoxetine 60 MG CAP PO SCH (09:00)
[2022-06-06] MEDS ORDERED: Multivit, Therapeutic 1 TAB PO SCH (09:00)
[2022-06-06] MEDS ORDERED: Amlodipine 10 MG TAB PO SCH (09:00)
[2022-06-06 11:33] VITALS: BP 117/75
[2022-06-06] MEDS: Sodium Chloride 0.9% 1,000 ML IV SCH (13:22)
[2022-06-12] MEDS ORDERED: Non-Formulary Item 1 EACH (Semaglutide [Ozempic] 1 MG/0.75 ML Pen.Injctr) SQ SCH (09:00)
== END 2022-06-06 14:30 | disposition home or self-care (01) ==
LOC: INTOOBSV 06-05 05:45 → OBSVTOIN 06-05 05:45 → SURG A 06-05 05:45 → SJJU 06-05 15:02
PROVIDERS: ADMIT Neurological Surgery; ATTEND Neurological Surgery
PROC: 0QJY0ZZ Inspection of Lower Bone, Open Approach (ICD-10-PCS; principal; 2022-06-05)
PROC: 0SG0071 Fusion of Lumbar Vertebral Joint with Autologous Tissue Substitute, Posterior Approach, Posterior Column, Open Approach (ICD-10-PCS; 2022-06-05)
DX: T84.226A Displacement of internal fixation device of vertebrae, initial encounter (principal); M54.16 Radiculopathy, lumbar region; E11.9 Type 2 diabetes mellitus without complications; E78.5 Hyperlipidemia, unspecified; Z79.82 Long term (current) use of aspirin; Z79.84 Long term (current) use of oral hypoglycemic drugs; Z79.85 Long-term (current) use of injectable non-insulin antidiabetic drugs; Z79.899 Other long term (current) drug therapy; Z88.5 Allergy status to narcotic agent; Z96.642 Presence of left artificial hip joint; Z20.822 Contact with and (suspected) exposure to COVID-19; Y79.3 Surgical instruments, materials and orthopedic devices (including sutures) associated with adverse incidents
CPT/HCPCS: 96365; 96366; 96375; 96376; C1713; C1768; C1776; G0378; J1100; J1885; J2270; J2272; J2370; J2405; J2704; J2765; J3010; J3490; J7050; S0028; U0002

== ENCOUNTER 2022-10-03 12:33 | Outpatient (CLI) | payer OTHER | END 2022-10-03 12:34 | disposition home or self-care (01) | LOC: CT 12:33 | PROVIDERS: ATTEND Neurological Surgery | DX: M54.50 Low back pain, unspecified (principal); Z98.890 Other specified postprocedural states; M46.06 Spinal enthesopathy, lumbar region; M53.87 Other specified dorsopathies, lumbosacral region | CPT/HCPCS: 72131 ==

== ENCOUNTER 2022-12-20 09:40 | Day surgery (SDC) | payer OTHER ==
[2022-12-18 15:08] VITALS: BMI 42.5
[2022-12-20] MEDS ORDERED: PROPOFOL 200 MG/20 ML VIAL ONE (12:45)
[2022-12-20] MEDS ORDERED: fentaNYL 50 mcg/mL 1 mL Vial ONE ×3 (13:48→14:35)
[2022-12-20] MEDS ORDERED: Labetalol HCl 100 MG/20 ML VIAL ONE (14:14)
[2022-12-20] MEDS ORDERED: HYDROcodone/Acetaminophen 5/325 mg Tablet ONE (15:28)
== END 2022-12-20 15:48 | disposition home or self-care (01) ==
LOC: MRI 09:40
PROVIDERS: ATTEND Neurological Surgery
DX: M48.04 Spinal stenosis, thoracic region (principal); E11.9 Type 2 diabetes mellitus without complications; E78.5 Hyperlipidemia, unspecified; Z96.642 Presence of left artificial hip joint; Z98.890 Other specified postprocedural states; Z79.84 Long term (current) use of oral hypoglycemic drugs; Z79.899 Other long term (current) drug therapy
CPT/HCPCS: 72146; J2704; J3010

== ENCOUNTER 2023-01-29 18:49 | Emergency (ER) | payer OTHER ==
[2023-01-29] MEDS ORDERED: Ketorolac Tromethamine 30 MG/ML VIAL ONE (19:14)
[2023-01-29] MEDS ORDERED: HYDROcodone/Acetaminophen 10/325 mg Tablet ONE (20:06)
== END 2023-01-29 21:10 | disposition home or self-care (01) ==
LOC: ERS 18:49
DX: M54.50 Low back pain, unspecified (principal); E11.9 Type 2 diabetes mellitus without complications; E78.5 Hyperlipidemia, unspecified; I10 Essential (primary) hypertension; Z79.84 Long term (current) use of oral hypoglycemic drugs; Z79.82 Long term (current) use of aspirin; Z79.899 Other long term (current) drug therapy
CPT/HCPCS: 70450; 71045; 72125; 72131; 96372; J1885

== ENCOUNTER 2023-04-16 08:57 | Outpatient (CLI) | payer OTHER | END 2023-04-16 08:58 | disposition home or self-care (01) | LOC: RAD 08:57 | PROVIDERS: ATTEND Neurological Surgery | DX: M54.2 Cervicalgia (principal); M25.78 Osteophyte, vertebrae; M43.12 Spondylolisthesis, cervical region | CPT/HCPCS: 72040 ==

== ENCOUNTER 2024-02-21 18:36 | Inpatient (IN) | payer OTHER ==
[~2024-02-21 18:36] MED LIST changes: +Iopamidol 370 76% 100 ML VIAL ONE; -Iopamidol-370 76% 500 ML 1 ML ONE
[2024-02-21 19:02] LABS: #Basophils 0.07 10x3/uL (0.0-0.2); %Basophils 0.8 % (0.0-1.0); %Eosinophils 1.6 % (0.0-10.0); %Lymphocytes 16.8 % (21.0-51.0); %Monocytes 7.6 % (0.0-10.0); %Neutrophils 72.4 % (42.0-75.0); Hematocrit 36.4 % (42.0-52.0); Hemoglobin 11.7 g/dL (14.0-18.0); Mean Corpuscular HGB CONC 32.1 g/dL (32.0-36.0); Mean Corpuscular Hemoglobin 29.5 pg (27.0-31.0); Mean Corpuscular Volume 91.7 fL (78.0-98.0); Mean Platelet Volume 8.6 fL (7.4-10.4); Platelet Count 303 10x3/uL (130-400); RBC Distribution Width 13.4 % (11.5-14.5); Red Blood Cell (RBC) Count 3.97 mill/uL (4.70-6.10)
[2024-02-21] MEDS ORDERED: diphenhydrAMINE 50 MG/ML VIAL ONE (19:20)
[2024-02-21] MEDS ORDERED: Metoclopramide HCl 10 MG (2 mL) VIAL ONE (19:20)
[2024-02-21 19:22] LABS: Troponin I Less than 0.010 ng/mL (< 0.028)
[2024-02-21 19:59] LABS: ALT (SGPT) 17 U/L (8-55); AST (SGOT) 15 U/L (5-34); Albumin 3.6 g/dL (3.4-4.8); Alkaline Phosphatase 107 U/L (40-110); Anion Gap 12 mmol/L (10-20); BUN (Urea Nitrogen) 18 mg/dL (8.4-25.7); Bilirubin, Total 0.4 mg/dL (0.2-1.2); Calc. Creatinine Clearance 0 mL/min (70-130); Calcium 9.3 mg/dL (7.8-10.44); Carbon Dioxide 23 mmol/L (23-31); Chloride 108 mmol/L (98-107); Estimated GFR 69; Globulin 3.2 g/dL (2.4-3.5); Glucose 134 mg/dL (80-115); Protein, Total 6.8 g/dL (5.8-8.1); Sodium 139 mmol/L (136-145)
[2024-02-21] MEDS ORDERED: Aspirin Chewable 81 MG TAB ONE (21:30)
[2024-02-21] MEDS ORDERED: hydrALAZINE 20 MG/ML VIAL SLOW IVP PRN (22:17)
[2024-02-21] MEDS ORDERED: Ondansetron PF 4 MG/2 ML Vial IVP PRN (22:18)
[2024-02-21] MEDS ORDERED: Ondansetron ODT 4 MG TAB PO PRN (22:18)
[2024-02-21] MEDS ORDERED: Fluticasone Propionate Nasal Spray 16 gm Bottle NASAL PRN (22:40)
[2024-02-21] MEDS ORDERED: Polyethylene Glycol 3350 17 GM Packet PO PRN (22:40)
[2024-02-21] MEDS ORDERED: Furosemide 20 MG TAB PO PRN (22:40)
[2024-02-21] MEDS ORDERED: Glucagon 1 MG/ML KIT IM PRN (22:56)
[2024-02-21] MEDS ORDERED: Dextrose 50% Abboject 50 ML SYRINGE SLOW IVP PRN (22:56)
[2024-02-21] MEDS ORDERED: Insulin Lispro 100 UNIT/ML 10 ML VIAL SC PRN (22:56)
[2024-02-21] MEDS ORDERED: Dextrose 5% in Water 1,000 ML IV PRN (22:56)
[2024-02-21] MEDS ORDERED: Morphine 2 MG/ML VIAL ONE (23:17)
[2024-02-21 23:26] LABS: Hemoglobin A1c 7.5 % (4.0-6.0)
[2024-02-22] MEDS: HYDROcodone/Acetaminophen 10/325 mg Tablet PO PRN (01:09)
[2024-02-22 01:49] VITALS: BMI 46.2
[2024-02-22 04:31] LABS: #Basophils 0.05 10x3/uL (0.0-0.2); %Basophils 0.8 % (0.0-1.0); %Eosinophils 2.7 % (0.0-10.0); %Lymphocytes 19.7 % (21.0-51.0); %Monocytes 8.8 % (0.0-10.0); %Neutrophils 67.2 % (42.0-75.0); Hematocrit 36.7 % (42.0-52.0); Hemoglobin 11.5 g/dL (14.0-18.0); Mean Corpuscular HGB CONC 31.3 g/dL (32.0-36.0); Mean Corpuscular Hemoglobin 29.3 pg (27.0-31.0); Mean Corpuscular Volume 93.6 fL (78.0-98.0); Mean Platelet Volume 8.6 fL (7.4-10.4); Platelet Count 416 10x3/uL (130-400); RBC Distribution Width 13.4 % (11.5-14.5); Red Blood Cell (RBC) Count 3.92 mill/uL (4.70-6.10)
[2024-02-22 04:53] LABS: ALT (SGPT) 18 U/L (8-55); AST (SGOT) 13 U/L (5-34); Albumin 3.6 g/dL (3.4-4.8); Alkaline Phosphatase 107 U/L (40-110); Anion Gap 14 mmol/L (10-20); BUN (Urea Nitrogen) 19 mg/dL (8.4-25.7); Bilirubin, Total 0.7 mg/dL (0.2-1.2); Calc. Creatinine Clearance 103 mL/min (70-130); Calcium 8.8 mg/dL (7.8-10.44); Carbon Dioxide 22 mmol/L (23-31); Cardiac Risk 2.8 (Less than 4.5); Chloride 107 mmol/L (98-107); Cholesterol 176 mg/dl (< 200 Desired); Estimated GFR 55; Globulin 3.1 g/dL (2.4-3.5); Glucose 164 mg/dL (80-115); HDL Cholesterol 64 mg/dL (>60 Neg Risk); LDL Cholesterol, Calculated 77 mg/dL; Potassium 4.1 mmol/L (3.5-5.1); Protein, Total 6.7 g/dL (5.8-8.1); Sodium 139 mmol/L (136-145); Triglycerides 174 mg/dL (Less than 150)
[2024-02-22] MEDS: Ibuprofen 200 MG TAB PO SCH (05:44)
[2024-02-22] MEDS: Dexamethasone 4 mg/ml Vial SLOW IVP SCH (05:44)
[2024-02-22] MEDS: Insulin Lispro 100 UNIT/ML 10 ML VIAL SC PRN (05:45)
[2024-02-22 06:07] LABS: Amphetamine Detected (NotDetected); Barbiturates Screen Not Detected (NotDetected); Benzodiazepine Screen Detected (NotDetected); Cocaine Metabolite Screen Not Detected (NotDetected); Methadone Not Detected (NotDetected); Methamphetamine Detected (NotDetected); Opiate Screen Detected (NotDetected); Oxycodone Screen Not Detected (NotDetected); Phencyclidine (PCP) Not Detected (NotDetected); THC/Cannabinoid Screen Not Detected (NotDetected); Tricyclic Screen Not Detected (NotDetected)
[2024-02-22] MEDS ORDERED: dilTIAZem CD 240 MG CAP PO SCH (09:00)
[2024-02-22] MEDS: Sodium Chloride 0.9% 1,000 ML IV SCH (10:28)
[2024-02-22] MEDS: Enoxaparin 40 MG (0.4 mL) SYRINGE SC SCH (10:28)
[2024-02-22] MEDS: Famotidine 20 MG TAB PO SCH (10:29)
[2024-02-22] MEDS: Aspirin 81 mg Enteric Coated Tablet PO SCH (10:29)
[2024-02-22] MEDS: DULoxetine 60 MG CAP PO SCH (10:29)
[2024-02-22] MEDS: Atorvastatin Calcium 40 MG TAB PO SCH (22:20)
[2024-02-23] MEDS: tiZANidine HCl 4 MG TAB PO PRN (05:07)
[2024-02-23] MEDS: Ferrous Sulfate 325 MG TAB PO SCH (09:54)
[2024-02-23] MEDS: Ketorolac Tromethamine 30 MG (1 mL) VIAL IVP SCH (11:57)
[2024-02-24 06:23] LABS: #Basophils 0.07 10x3/uL (0.0-0.2); %Basophils 1.1 % (0.0-1.0); %Eosinophils 1.5 % (0.0-10.0); %Lymphocytes 25.5 % (21.0-51.0); %Monocytes 7.6 % (0.0-10.0); %Neutrophils 62.6 % (42.0-75.0); Hematocrit 34.3 % (42.0-52.0); Hemoglobin 10.9 g/dL (14.0-18.0); Mean Corpuscular HGB CONC 31.8 g/dL (32.0-36.0); Mean Corpuscular Hemoglobin 29.5 pg (27.0-31.0); Mean Platelet Volume 8.6 fL (7.4-10.4); Platelet Count 390 10x3/uL (130-400); RBC Distribution Width 13.3 % (11.5-14.5); Red Blood Cell (RBC) Count 3.69 mill/uL (4.70-6.10)
[2024-02-24 06:34] LABS: Anion Gap 12 mmol/L (10-20); BUN (Urea Nitrogen) 21 mg/dL (8.4-25.7); Calc. Creatinine Clearance 146 mL/min (70-130); Calcium 8.5 mg/dL (7.8-10.44); Carbon Dioxide 23 mmol/L (23-31); Chloride 106 mmol/L (98-107); Estimated GFR 84; Glucose 131 mg/dL (80-115); Potassium 3.9 mmol/L (3.5-5.1); Sodium 137 mmol/L (136-145)
[2024-02-24] MEDS: Gabapentin 300 MG CAP PO SCH (08:11)
[2024-02-24] MEDS: Morphine 4 MG/ML VIAL SLOW IVP PRN (11:27)
[2024-02-24 13:36] VITALS: BP 138/76; TEMP 97.8
== END 2024-02-24 16:00 | disposition home or self-care (01) | DRG 552 ==
LOC: ERS 18:36 → 2SE 22:16 → OBSVTOIN 02-23 10:14
PROVIDERS: ADMIT Internal Medicine; ATTEND Internal Medicine
DX: M48.02 Spinal stenosis, cervical region (principal); G95.20 Unspecified cord compression; N17.9 Acute kidney failure, unspecified; Z68.42 Body mass index [BMI] 45.0-49.9, adult; M50.120 Mid-cervical disc disorder, unspecified level; E11.9 Type 2 diabetes mellitus without complications; I10 Essential (primary) hypertension; E78.5 Hyperlipidemia, unspecified; E66.9 Obesity, unspecified; Z79.84 Long term (current) use of oral hypoglycemic drugs; Z79.899 Other long term (current) drug therapy; Z88.5 Allergy status to narcotic agent; Z79.4 Long term (current) use of insulin
CPT/HCPCS: 36415; 36416; 70496; 70498; 70551; 72141; 80048; 80053; 80061; 80306; 83036; 84484; 85025; 93005; 96372; 96374; 96375; G0378; J1100; J1200; J1650; J1815; J1885; J2272; J2765; J7030; Q9967

== ENCOUNTER 2024-03-01 12:59 | Inpatient (IN) | payer OTHER ==
[2024-03-01] MEDS ORDERED: Ondansetron PF 4 MG/2 ML Vial ONE (14:19)
[2024-03-01] MEDS ORDERED: Morphine 4 MG/ML VIAL ONE ×2 (14:19→17:19)
[2024-03-01 14:53] LABS: #Basophils 0.03 10x3/uL (0.0-0.2); #Eosinophils Less than 0.03 10x3/uL (0.0-0.7); %Basophils 0.3 % (0.0-1.0); %Eosinophils 0.2 % (0.0-10.0); %Lymphocytes 6.2 % (21.0-51.0); %Monocytes 1.9 % (0.0-10.0); %Neutrophils 89.3 % (42.0-75.0); Hematocrit 38.9 % (42.0-52.0); Hemoglobin 12.5 g/dL (14.0-18.0); Mean Corpuscular HGB CONC 32.1 g/dL (32.0-36.0); Mean Corpuscular Hemoglobin 29.5 pg (27.0-31.0); Mean Corpuscular Volume 91.7 fL (78.0-98.0); Mean Platelet Volume 8.4 fL (7.4-10.4); Platelet Count 432 10x3/uL (130-400); RBC Distribution Width 13.9 % (11.5-14.5); Red Blood Cell (RBC) Count 4.24 mill/uL (4.70-6.10)
[2024-03-01 15:10] LABS: ALT (SGPT) 53 U/L (8-55); AST (SGOT) 18 U/L (5-34); Albumin 3.6 g/dL (3.4-4.8); Alkaline Phosphatase 118 U/L (40-110); Anion Gap 15 mmol/L (10-20); BUN (Urea Nitrogen) 18 mg/dL (8.4-25.7); Bilirubin, Total 0.7 mg/dL (0.2-1.2); Calc. Creatinine Clearance 0 mL/min (70-130); Calcium 8.9 mg/dL (7.8-10.44); Carbon Dioxide 24 mmol/L (23-31); Chloride 103 mmol/L (98-107); Estimated GFR 81; Globulin 3.4 g/dL (2.4-3.5); Glucose 172 mg/dL (80-115); Potassium 4.5 mmol/L (3.5-5.1); Sodium 137 mmol/L (136-145)
[2024-03-01 15:12] LABS: INR-International Normal Ratio 0.9; PTT 22.9 sec (22.9-36.1); Prothrombin Time 12.2 sec (12.0-14.7)
[2024-03-01] MEDS ORDERED: Senokot S 8.6-50 MG TAB PO PRN (17:11)
[2024-03-01] MEDS ORDERED: Dextrose 50% Abboject 50 ML SYRINGE SLOW IVP PRN (17:11)
[2024-03-01] MEDS ORDERED: Glucagon 1 MG/ML KIT IM PRN (17:11)
[2024-03-01] MEDS ORDERED: Bisacodyl 5 MG TAB PO PRN (17:11)
[2024-03-01] MEDS ORDERED: Dextrose 5% in Water 1,000 ML IV PRN (17:11)
[2024-03-01 20:35] VITALS: BMI 47.7
[2024-03-01] MEDS: Gabapentin 300 MG CAP PO SCH (20:36)
[2024-03-01] MEDS: Dexamethasone 4 MG TAB PO SCH (20:36)
[2024-03-01] MEDS: Heparin 5,000 UNITS/ML VIAL SC SCH (20:36)
[2024-03-01] MEDS: tiZANidine HCl 4 MG TAB PO PRN (20:41)
[2024-03-01] MEDS: HYDROcodone/Acetaminophen 5/325 mg Tablet PO PRN (21:28)
[2024-03-01] MEDS: Ketorolac Tromethamine 30 MG (1 mL) VIAL IVP SCH (22:08)
[2024-03-02] MEDS: Morphine 4 MG/ML VIAL SLOW IVP PRN ×2 (02:57→15:26)
[2024-03-02] MEDS: Insulin Lispro 100 UNIT/ML 10 ML VIAL SC PRN (06:08)
[2024-03-02 06:11] LABS: #Basophils Less than 0.03 10x3/uL (0.0-0.2); #Eosinophils Less than 0.03 10x3/uL (0.0-0.7); %Basophils 0.1 % (0.0-1.0); %Lymphocytes 6.1 % (21.0-51.0); %Monocytes 1.2 % (0.0-10.0); %Neutrophils 91.5 % (42.0-75.0); Hematocrit 38.5 % (42.0-52.0); Hemoglobin 12.4 g/dL (14.0-18.0); Mean Corpuscular HGB CONC 32.2 g/dL (32.0-36.0); Mean Corpuscular Hemoglobin 29.7 pg (27.0-31.0); Mean Corpuscular Volume 92.1 fL (78.0-98.0); Mean Platelet Volume 8.5 fL (7.4-10.4); Platelet Count 452 10x3/uL (130-400); RBC Distribution Width 13.7 % (11.5-14.5); Red Blood Cell (RBC) Count 4.18 mill/uL (4.70-6.10)
[2024-03-02] MEDS: Ondansetron PF 4 MG/2 ML Vial IVP PRN (06:30)
[2024-03-02 07:32] LABS: Anion Gap 15 mmol/L (10-20); BUN (Urea Nitrogen) 18 mg/dL (8.4-25.7); Calc. Creatinine Clearance 152 mL/min (70-130); Carbon Dioxide 23 mmol/L (23-31); Chloride 105 mmol/L (98-107); Potassium 4.9 mmol/L (3.5-5.1); Sodium 138 mmol/L (136-145)
[2024-03-02 07:33] LABS: Calcium 8.9 mg/dL (7.8-10.44); Estimated GFR 85; Glucose 165 mg/dL (80-115)
[2024-03-02] MEDS: Hydrochlorothiazide 25 MG TAB PO SCH (08:01)
[2024-03-02] MEDS: Losartan 25 MG TAB PO SCH (08:01)
[2024-03-02] MEDS: DULoxetine 60 MG CAP PO SCH (08:01)
[2024-03-02] MEDS: dilTIAZem CD 240 MG CAP PO SCH (10:47)
[2024-03-02] MEDS: HYDROcodone/Acetaminophen 10/325 mg Tablet PO PRN (11:57)
[2024-03-02] MEDS: Lidocaine 4% Patch TD SCH (11:57)
[2024-03-02] MEDS: Gabapentin 300 MG CAP PO SCH (15:25)
[2024-03-02] MEDS: metFORMIN 500 MG TAB PO SCH (17:58)
[2024-03-02] MEDS: Ketorolac Tromethamine 30 MG (1 mL) VIAL IVP PRN (17:59)
[2024-03-02] MEDS: Atorvastatin Calcium 20 MG TAB PO SCH (20:42)
[2024-03-02] MEDS: tiZANidine HCl 4 MG TAB PO SCH (20:42)
[2024-03-02] MEDS: Senokot S 8.6-50 MG TAB PO SCH (20:42)
[2024-03-02] MEDS: Transdermal Patch Removal TOP SCH (20:53)
[2024-03-03] MEDS: Polyethylene Glycol 3350 17 GM Packet PO SCH (08:07)
[2024-03-03] MEDS: Magnesium Oxide 400 MG TAB PO SCH (08:08)
[2024-03-03] MEDS: Fluticasone Propionate Nasal Spray 16 gm Bottle NASAL SCH (08:09)
[2024-03-03] MEDS: Lidocaine 4% Patch TD SCH (08:09)
[2024-03-05] MEDS: FLU (Fluarix Triv) TS24-25(6MOS UP)/PF 45 MCG/0.5 ML Syringe IM ONE (12:16)
[2024-03-05 12:33] VITALS: BP 147/82; TEMP 98.4
== END 2024-03-05 13:45 | disposition home or self-care (01) | DRG 552 ==
LOC: ERS 12:59 → T4-A 16:42 → OBSVTOIN 03-03 09:16
PROVIDERS: ADMIT Internal Medicine; ATTEND Family Medicine
DX: M48.02 Spinal stenosis, cervical region (principal); Z68.42 Body mass index [BMI] 45.0-49.9, adult; E11.9 Type 2 diabetes mellitus without complications; I10 Essential (primary) hypertension; E78.5 Hyperlipidemia, unspecified; E66.9 Obesity, unspecified; G89.29 Other chronic pain; M54.9 Dorsalgia, unspecified; Z88.5 Allergy status to narcotic agent; M19.90 Unspecified osteoarthritis, unspecified site; Z86.718 Personal history of other venous thrombosis and embolism; Z96.642 Presence of left artificial hip joint
CPT/HCPCS: 36415; 36416; 80048; 80053; 85025; 85610; 85730; 90656; 96372; 96374; 96375; 96376; G0378; J1644; J1815; J1885; J2272; J2405; J8540

== ENCOUNTER 2024-03-09 12:37 | Emergency (ER) | payer OTHER ==
[2024-03-09] MEDS ORDERED: methylPREDNISolone Sod Succ/PF 125 MG/2 ML VIAL ONE (14:14)
[2024-03-09] MEDS ORDERED: Morphine 4 MG/ML VIAL ONE (14:14)
[2024-03-09 14:15] LABS: #Basophils 0.05 10x3/uL (0.0-0.2); %Basophils 0.4 % (0.0-1.0); %Eosinophils 0.9 % (0.0-10.0); %Lymphocytes 7.2 % (21.0-51.0); %Neutrophils 80.6 % (42.0-75.0); Hematocrit 38.4 % (42.0-52.0); Hemoglobin 12.4 g/dL (14.0-18.0); Mean Corpuscular HGB CONC 32.3 g/dL (32.0-36.0); Mean Corpuscular Hemoglobin 29.7 pg (27.0-31.0); Mean Corpuscular Volume 91.9 fL (78.0-98.0); Mean Platelet Volume 8.8 fL (7.4-10.4); Platelet Count 388 10x3/uL (130-400); RBC Distribution Width 14.2 % (11.5-14.5); Red Blood Cell (RBC) Count 4.18 mill/uL (4.70-6.10)
[2024-03-09 14:36] LABS: ALT (SGPT) 55 U/L (8-55); AST (SGOT) 20 U/L (5-34); Albumin 3.3 g/dL (3.4-4.8); Alkaline Phosphatase 95 U/L (40-110); Anion Gap 14 mmol/L (10-20); BUN (Urea Nitrogen) 28 mg/dL (8.4-25.7); Bilirubin, Total 0.7 mg/dL (0.2-1.2); Calc. Creatinine Clearance 0 mL/min (70-130); Calcium 8.7 mg/dL (7.8-10.44); Carbon Dioxide 25 mmol/L (23-31); Chloride 102 mmol/L (98-107); Estimated GFR 61; Globulin 2.8 g/dL (2.4-3.5); Glucose 186 mg/dL (80-115); Lipase 7 U/L (8-78); Protein, Total 6.1 g/dL (5.8-8.1); Sodium 136 mmol/L (136-145)
[2024-03-09 14:37] LABS: Troponin I Less than 0.010 ng/mL (< 0.028)
[2024-03-09] MEDS ORDERED: Diazepam 5 MG TAB ONE (15:48)
== END 2024-03-09 16:15 | disposition home or self-care (01) ==
LOC: ERS 12:37
DX: M79.2 Neuralgia and neuritis, unspecified (principal); M62.838 Other muscle spasm; E11.9 Type 2 diabetes mellitus without complications; I10 Essential (primary) hypertension; Z96.642 Presence of left artificial hip joint
CPT/HCPCS: 36415; 80053; 83690; 84484; 85025; 87428; 93005; 96374; 96375; J2272; J2919

== ENCOUNTER 2024-03-26 00:27 | Inpatient (IN) | payer OTHER ==
[2024-03-26 01:02] LABS: #Basophils 0.04 10x3/uL (0.0-0.2); %Basophils 0.9 % (0.0-1.0); %Eosinophils 2.2 % (0.0-10.0); %Lymphocytes 29.2 % (21.0-51.0); %Monocytes 11.2 % (0.0-10.0); %Neutrophils 55.4 % (42.0-75.0); Hematocrit 41.8 % (42.0-52.0); Hemoglobin 13.4 g/dL (14.0-18.0); Mean Corpuscular HGB CONC 32.1 g/dL (32.0-36.0); Mean Corpuscular Volume 93.5 fL (78.0-98.0); Mean Platelet Volume 8.6 fL (7.4-10.4); Platelet Count 322 10x3/uL (130-400); Red Blood Cell (RBC) Count 4.47 mill/uL (4.70-6.10)
[2024-03-26 01:28] LABS: ALT (SGPT) 26 U/L (8-55); AST (SGOT) 21 U/L (5-34); Albumin 3.6 g/dL (3.4-4.8); Alkaline Phosphatase 78 U/L (40-110); Anion Gap 18 mmol/L (10-20); BUN (Urea Nitrogen) 19 mg/dL (8.4-25.7); Bilirubin, Total 0.4 mg/dL (0.2-1.2); Calc. Creatinine Clearance 0 mL/min (70-130); Calcium 9.6 mg/dL (7.8-10.44); Carbon Dioxide 20 mmol/L (23-31); Chloride 107 mmol/L (98-107); Estimated GFR 73; Globulin 3.6 g/dL (2.4-3.5); Glucose 161 mg/dL (80-115); Protein, Total 7.2 g/dL (5.8-8.1); Sodium 141 mmol/L (136-145)
[2024-03-26 01:35] LABS: Troponin I Less than 0.010 ng/mL (< 0.028)
[2024-03-26] MEDS ORDERED: Morphine 4 MG/ML VIAL ONE (05:15)
[2024-03-26] MEDS ORDERED: Ondansetron PF 4 MG/2 ML Vial ONE (05:15)
[2024-03-26] MEDS ORDERED: Ketorolac Tromethamine 30 MG (1 mL) VIAL ONE (07:27)
[2024-03-26] MEDS ORDERED: Acetaminophen 500 MG TAB ONE (07:28)
[2024-03-26] MEDS ORDERED: Ondansetron PF 4 MG/2 ML Vial IVP PRN ×2 (08:10→09:47)
[2024-03-26] MEDS ORDERED: Ondansetron ODT 4 MG TAB PO PRN ×2 (08:10→09:47)
[2024-03-26] MEDS ORDERED: Acetaminophen 325 MG TAB PO PRN ×2 (08:11→09:47)
[2024-03-26 08:14] LABS: Troponin I Less than 0.010 ng/mL (< 0.028)
[2024-03-26] MEDS ORDERED: Dextrose 50% Abboject 50 ML SYRINGE SLOW IVP PRN (09:47)
[2024-03-26] MEDS ORDERED: Insulin Lispro 100 UNIT/ML 10 ML VIAL SC PRN (09:47)
[2024-03-26] MEDS ORDERED: Acetaminophen 650 MG Suppository PR PRN (09:47)
[2024-03-26] MEDS ORDERED: Nitroglycerin 0.4 MG TAB (25 Tab Bottle) SL PRN (09:47)
[2024-03-26] MEDS ORDERED: Dextrose 5% in Water 1,000 ML IV PRN (09:47)
[2024-03-26] MEDS ORDERED: Glucagon 1 MG/ML KIT IM PRN (09:47)
[2024-03-26 10:34] VITALS: BMI 48.4
[2024-03-26 10:50] LABS: Troponin I Less than 0.010 ng/mL (< 0.028)
[2024-03-26 10:56] LABS: Magnesium 2.2 mg/dL (1.6-2.6)
[2024-03-26] MEDS: Senokot S 8.6-50 MG TAB PO SCH (11:22)
[2024-03-26] MEDS: Polyethylene Glycol 3350 17 GM Packet PO SCH (11:22)
[2024-03-26] MEDS: Magnesium Oxide 400 MG TAB PO SCH (11:23)
[2024-03-26] MEDS: HYDROcodone/Acetaminophen 10/325 mg Tablet PO PRN (11:23)
[2024-03-26] MEDS: DULoxetine 60 MG CAP PO SCH (11:23)
[2024-03-26] MEDS: dilTIAZem CD 240 MG CAP PO SCH (11:23)
[2024-03-26] MEDS: Hydrochlorothiazide 25 MG TAB PO SCH (11:23)
[2024-03-26] MEDS: tiZANidine HCl 4 MG TAB PO PRN (11:23)
[2024-03-26] MEDS: Morphine 4 MG/ML VIAL SLOW IVP PRN (12:17)
[2024-03-26] MEDS: Ferrous Sulfate 325 MG TAB PO SCH (16:38)
[2024-03-26] MEDS: Atorvastatin Calcium 20 MG TAB PO SCH (21:19)
[2024-03-27] MEDS: Ketotifen 0.035% Ophth Soln 5 ml Bottle EA EYE SCH (03:14)
[2024-03-27] MEDS: Transdermal Lidocaine Patch Removal TOP SCH (03:14)
[2024-03-27 04:30] LABS: #Basophils Less than 0.03 10x3/uL (0.0-0.2); %Basophils 0.6 % (0.0-1.0); %Eosinophils 3.5 % (0.0-10.0); %Lymphocytes 26.1 % (21.0-51.0); %Monocytes 11.7 % (0.0-10.0); %Neutrophils 56.6 % (42.0-75.0); Hematocrit 38.7 % (42.0-52.0); Hemoglobin 12.5 g/dL (14.0-18.0); Mean Corpuscular HGB CONC 32.3 g/dL (32.0-36.0); Mean Corpuscular Hemoglobin 29.6 pg (27.0-31.0); Mean Corpuscular Volume 91.5 fL (78.0-98.0); Mean Platelet Volume 8.6 fL (7.4-10.4); Platelet Count 291 10x3/uL (130-400); RBC Distribution Width 12.8 % (11.5-14.5); Red Blood Cell (RBC) Count 4.23 mill/uL (4.70-6.10)
[2024-03-27 04:43] LABS: Anion Gap 14 mmol/L (10-20); BUN (Urea Nitrogen) 17 mg/dL (8.4-25.7); Calc. Creatinine Clearance 150 mL/min (70-130); Calcium 8.9 mg/dL (7.8-10.44); Carbon Dioxide 23 mmol/L (23-31); Chloride 104 mmol/L (98-107); Estimated GFR 82; Glucose 147 mg/dL (80-115); Sodium 137 mmol/L (136-145)
[2024-03-27] MEDS: Losartan 25 MG TAB PO SCH (09:24)
[2024-03-27] MEDS: CeleCOXIB 100 MG CAP PO SCH (09:24)
[2024-03-27] MEDS: Aspirin 81 mg Enteric Coated Tablet PO SCH (09:25)
[2024-03-27] MEDS: Multivitamin W/ Minerals 1 TAB PO SCH (09:27)
[2024-03-27] MEDS: Lidocaine 4% Patch TD SCH (09:30)
[2024-03-27] MEDS: Fluticasone Propionate Nasal Spray 16 gm Bottle NASAL SCH (09:30)
[2024-03-27] MEDS ORDERED: Regadenoson 0.4 MG/5 ML SYRINGE ONE (11:12)
[2024-03-28] MEDS: Insulin Lispro 100 UNIT/ML 10 ML VIAL SC PRN (06:07)
[2024-03-29 15:26] VITALS: BP 131/76; TEMP 97.6
== END 2024-03-29 16:25 | disposition home or self-care (01) | DRG 313 ==
LOC: ERS 00:27 → 2NO 08:06 → OBSVTOIN 03-27 15:44
PROVIDERS: ADMIT Internal Medicine; ATTEND Family Medicine
PROC: 5A09357 Assistance with Respiratory Ventilation, Less than 24 Consecutive Hours, Continuous Positive Airway Pressure (ICD-10-PCS; principal; 2024-03-26)
DX: R07.89 Other chest pain (principal); Z68.42 Body mass index [BMI] 45.0-49.9, adult; E11.9 Type 2 diabetes mellitus without complications; I10 Essential (primary) hypertension; E66.01 Morbid (severe) obesity due to excess calories; E78.5 Hyperlipidemia, unspecified; M48.02 Spinal stenosis, cervical region; D64.9 Anemia, unspecified; Z96.642 Presence of left artificial hip joint; Z98.890 Other specified postprocedural states; Z88.5 Allergy status to narcotic agent
CPT/HCPCS: 36415; 36416; 70450; 71045; 72125; 78452; 80048; 80053; 83735; 83880; 84484; 85025; 93005; 93017; 93306; 96374; 96375; A9500; G0378; J1885; J2272; J2405; J2785

== ENCOUNTER 2024-04-02 11:48 | Outpatient (CLI) | payer OTHER ==
[2024-04-02 13:14] LABS: #Basophils 0.04 10x3/uL (0.0-0.2); %Basophils 0.6 % (0.0-1.0); %Eosinophils 2.3 % (0.0-10.0); %Lymphocytes 22.2 % (21.0-51.0); %Monocytes 9.4 % (0.0-10.0); %Neutrophils 63.8 % (42.0-75.0); Hematocrit 41.5 % (42.0-52.0); Hemoglobin 13.6 g/dL (14.0-18.0); Mean Corpuscular HGB CONC 32.8 g/dL (32.0-36.0); Mean Corpuscular Hemoglobin 29.4 pg (27.0-31.0); Mean Corpuscular Volume 89.6 fL (78.0-98.0); Mean Platelet Volume 8.4 fL (7.4-10.4); Platelet Count 373 10x3/uL (130-400); RBC Distribution Width 12.6 % (11.5-14.5); Red Blood Cell (RBC) Count 4.63 mill/uL (4.70-6.10)
[2024-04-02 13:26] LABS: PTT 25.2 sec (22.9-36.1); Prothrombin Time 12.6 sec (12.0-14.7)
[2024-04-02 13:45] LABS: Anion Gap 13 mmol/L (10-20); BUN (Urea Nitrogen) 20 mg/dL (8.4-25.7); Calc. Creatinine Clearance 0 mL/min (70-130); Calcium 9.7 mg/dL (7.8-10.44); Carbon Dioxide 26 mmol/L (23-31); Chloride 102 mmol/L (98-107); Estimated GFR 68; Glucose 151 mg/dL (80-115); Potassium 4.2 mmol/L (3.5-5.1); Sodium 137 mmol/L (136-145)
[2024-04-02 14:12] LABS: Hemoglobin A1c 6.4 % (4.0-6.0)
== END 2024-04-02 11:49 | disposition home or self-care (01) ==
LOC: LABBT 11:48
PROVIDERS: ATTEND Orthopaedic Surgery
DX: Z01.812 Encounter for preprocedural laboratory examination (principal); M47.12 Other spondylosis with myelopathy, cervical region; M47.22 Other spondylosis with radiculopathy, cervical region; M48.02 Spinal stenosis, cervical region
CPT/HCPCS: 80048; 83036; 85025; 85610; 85730; 86850; 86900; 86901; 93005; 93010

== ENCOUNTER 2024-04-09 07:33 | Observation (INO) | payer OTHER ==
[2024-04-02 12:26] VITALS: BMI 45.6
[2024-04-02 13:14] LABS: #Basophils 0.04 10x3/uL (0.0-0.2); %Basophils 0.6 % (0.0-1.0); %Eosinophils 2.3 % (0.0-10.0); %Lymphocytes 22.2 % (21.0-51.0); %Monocytes 9.4 % (0.0-10.0); %Neutrophils 63.8 % (42.0-75.0); Hematocrit 41.5 % (42.0-52.0); Hemoglobin 13.6 g/dL (14.0-18.0); Mean Corpuscular HGB CONC 32.8 g/dL (32.0-36.0); Mean Corpuscular Hemoglobin 29.4 pg (27.0-31.0); Mean Corpuscular Volume 89.6 fL (78.0-98.0); Mean Platelet Volume 8.4 fL (7.4-10.4); Platelet Count 373 10x3/uL (130-400); RBC Distribution Width 12.6 % (11.5-14.5); Red Blood Cell (RBC) Count 4.63 mill/uL (4.70-6.10)
[2024-04-02 13:26] LABS: PTT 25.2 sec (22.9-36.1); Prothrombin Time 12.6 sec (12.0-14.7)
[2024-04-02 13:45] LABS: Anion Gap 13 mmol/L (10-20); BUN (Urea Nitrogen) 20 mg/dL (8.4-25.7); Calc. Creatinine Clearance 0 mL/min (70-130); Calcium 9.7 mg/dL (7.8-10.44); Carbon Dioxide 26 mmol/L (23-31); Chloride 102 mmol/L (98-107); Estimated GFR 68; Glucose 151 mg/dL (80-115); Potassium 4.2 mmol/L (3.5-5.1); Sodium 137 mmol/L (136-145)
[2024-04-02 14:12] LABS: Hemoglobin A1c 6.4 % (4.0-6.0)
[2024-04-09] MEDS ORDERED: Lidocaine 2% PF 5 ML VIAL ONE (09:32)
[2024-04-09] MEDS ORDERED: SUCCINYLCHOLINE/SOD CL,ISO/PF 200 MG/10 ML SYRINGE FS ONE (09:32)
[2024-04-09] MEDS ORDERED: Dexamethasone 4 mg/ml Vial ONE (09:32)
[2024-04-09] MEDS ORDERED: Ketamine In 0.9 % NaCl 50 MG/5 ML SYRINGE ONE ×2 (09:33→10:26)
[2024-04-09] MEDS ORDERED: Fentanyl 250 MCG/5 ML VIAL ONE (09:33)
[2024-04-09] MEDS ORDERED: Midazolam HCl 2 mg/2 ml Vial ONE (09:33)
[2024-04-09] MEDS ORDERED: Glycopyrrolate 0.2 MG/ML 5 ML SYRINGE ONE (09:34)
[2024-04-09] MEDS ORDERED: PROPOFOL 20 ML ONE ×3 (09:35→13:21)
[2024-04-09] MEDS ORDERED: Famotidine/PF 20 mg/2ml Vial ONE (10:16)
[2024-04-09] MEDS ORDERED: CEFAZOLIN 2 GM VIAL ONE (10:20)
[2024-04-09] MEDS ORDERED: Propofol 1,000 MG/100 ML VIAL IV ONE (10:31)
[2024-04-09] MEDS ORDERED: Rocuronium Bromide 10 MG/ML (10ML VIAL) ONE (10:54)
[2024-04-09] MEDS ORDERED: Albuterol HFA (OR) 200 PUFF INH ONE (10:54)
[2024-04-09] MEDS ORDERED: Ondansetron PF 4 MG/2 ML Vial ONE (10:54)
[2024-04-09] MEDS ORDERED: CEFAZOLIN 1 GM VIAL ONE (11:11)
[2024-04-09] MEDS ORDERED: Phenylephrine 10 MG/ML VIAL ONE (11:17)
[2024-04-09] MEDS ORDERED: Phenylephrine 40 MG/NS 250 ML 250 ML ONE (11:27)
[2024-04-09] MEDS ORDERED: Propofol 500 MG/50 ML VIAL ONE (13:22)
[2024-04-09] MEDS ORDERED: Senokot S 8.6-50 MG TAB PO PRN (13:57)
[2024-04-09] MEDS ORDERED: HYDROcodone/Acetaminophen 10/325 mg Tablet PO PRN (13:57)
[2024-04-09] MEDS ORDERED: Furosemide 20 MG TAB PO PRN (13:57)
[2024-04-09] MEDS ORDERED: SUGAMMADEX SODIUM 200 MG/2 ML VIAL ONE (13:59)
[2024-04-09] MEDS ORDERED: RENALLY DOSE ABX FS PRN (14:00)
[2024-04-09] MEDS ORDERED: fentaNYL PF 100 MCG/2 ML SYRINGE ONE ×2 (14:53→15:45)
[2024-04-09] MEDS ORDERED: HYDROmorphone 0.5 MG/0.5 ML SYRINGE ONE ×2 (15:22→15:34)
[2024-04-09] MEDS ORDERED: hydrALAZINE 20 MG/ML VIAL ONE (16:12)
[2024-04-09] MEDS: HYDROcodone/Acetaminophen 10/325 mg Tablet PO PRN (18:25)
[2024-04-09] MEDS: Ferrous Sulfate 325 MG TAB PO SCH (18:25)
[2024-04-09] MEDS: CEFAZOLIN 2 GM in Sodium Chloride 0.9% 100 ML IVPB SCH (18:26)
[2024-04-09] MEDS: traMADol HCl 50 MG TAB PO PRN (20:05)
[2024-04-09] MEDS: Morphine 2 MG/ML VIAL SLOW IVP PRN (20:05)
[2024-04-09] MEDS: tiZANidine HCl 4 MG TAB PO PRN (20:05)
[2024-04-09] MEDS: Aspirin 81 mg Enteric Coated Tablet PO SCH (20:05)
[2024-04-09] MEDS: metFORMIN 500 MG TAB PO SCH (20:05)
[2024-04-09] MEDS ORDERED: Dextrose 5% in Water 1,000 ML IV PRN (20:37)
[2024-04-09] MEDS ORDERED: Glucagon 1 MG/ML KIT IM PRN (20:37)
[2024-04-09] MEDS ORDERED: Insulin Lispro 100 UNIT/ML 10 ML VIAL SC PRN (20:37)
[2024-04-09] MEDS ORDERED: Dextrose 50% Abboject 50 ML SYRINGE SLOW IVP PRN (20:37)
[2024-04-10] MEDS: Morphine 2 MG/ML VIAL SLOW IVP PRN (03:49)
[2024-04-10] MEDS: Losartan 25 MG TAB PO SCH (09:56)
[2024-04-10] MEDS: Multivitamin W/ Minerals 1 TAB PO SCH (09:56)
[2024-04-10] MEDS: metFORMIN 500 MG TAB PO SCH (09:57)
[2024-04-10] MEDS: Magnesium Oxide 400 MG TAB PO SCH (09:57)
[2024-04-10] MEDS: Fluticasone Propionate Nasal Spray 16 gm Bottle NASAL SCH (09:58)
[2024-04-10] MEDS: CeleCOXIB 100 MG CAP PO SCH (10:05)
[2024-04-10] MEDS: Hydrochlorothiazide 25 MG TAB PO SCH (10:06)
[2024-04-10] MEDS: dilTIAZem CD 240 MG CAP PO SCH (10:06)
[2024-04-10] MEDS: DULoxetine 60 MG CAP PO SCH (10:06)
[2024-04-10] MEDS: TETANUS, DIPHTHERIA TOX,ADULT (TDVAX) 0.5 ML VIAL IM ONE (10:29)
[2024-04-10] MEDS: Polyethylene Glycol 3350 17 GM Packet PO SCH (10:30)
[2024-04-10] MEDS: Ketotifen 0.035% Ophth Soln 5 ml Bottle EA EYE SCH (10:31)
[2024-04-10] MEDS: Morphine 4 MG/ML VIAL SLOW IVP PRN (14:15)
[2024-04-10] MEDS: Insulin Lispro 100 UNIT/ML 10 ML VIAL SC PRN (18:15)
[2024-04-11 11:50] VITALS: BP 167/94; TEMP 97.7
[2024-04-16] MEDS ORDERED: SEMAGLUTIDE 1 MG/0.75 ML SC SCH (09:00)
== END 2024-04-11 14:30 | disposition home or self-care (01) ==
LOC: SDC 07:33 → SURG A 13:54
PROVIDERS: ADMIT Orthopaedic Surgery; ATTEND Orthopaedic Surgery
PROC: 0RG10A0 Fusion of Cervical Vertebral Joint with Interbody Fusion Device, Anterior Approach, Anterior Column, Open Approach (ICD-10-PCS; principal; 2024-04-09)
DX: M47.12 Other spondylosis with myelopathy, cervical region (principal); M47.22 Other spondylosis with radiculopathy, cervical region; M48.02 Spinal stenosis, cervical region; I10 Essential (primary) hypertension; E11.9 Type 2 diabetes mellitus without complications; E66.01 Morbid (severe) obesity due to excess calories; G47.33 Obstructive sleep apnea (adult) (pediatric); Z68.42 Body mass index [BMI] 45.0-49.9, adult; Z96.642 Presence of left artificial hip joint; Z88.5 Allergy status to narcotic agent; Z79.51 Long term (current) use of inhaled steroids; Z79.84 Long term (current) use of oral hypoglycemic drugs; Z79.899 Other long term (current) drug therapy
CPT/HCPCS: 36416; 72040; 80048; 83036; 85025; 85610; 85730; 86850; 86900; 86901; C1713; C1889; J0360; J0690; J1100; J1815; J2250; J2272; J2371; J2405; J2704; J3010; J3490

== ENCOUNTER 2024-05-10 12:37 | Emergency (ER) | payer OTHER ==
[2024-05-10 15:10] LABS: #Basophils 0.04 10x3/uL (0.0-0.2); %Basophils 0.9 % (0.0-1.0); %Eosinophils 6.3 % (0.0-10.0); %Lymphocytes 29.5 % (21.0-51.0); %Monocytes 8.9 % (0.0-10.0); Hematocrit 38.5 % (42.0-52.0); Hemoglobin 12.5 g/dL (14.0-18.0); Mean Corpuscular HGB CONC 32.5 g/dL (32.0-36.0); Mean Corpuscular Hemoglobin 28.3 pg (27.0-31.0); Mean Corpuscular Volume 87.3 fL (78.0-98.0); Mean Platelet Volume 8.5 fL (7.4-10.4); Platelet Count 374 10x3/uL (130-400); Red Blood Cell (RBC) Count 4.41 mill/uL (4.70-6.10)
[2024-05-10 15:37] LABS: ALT (SGPT) 11 U/L (8-55); AST (SGOT) 18 U/L (5-34); Albumin 3.6 g/dL (3.4-4.8); Alkaline Phosphatase 98 U/L (40-110); Anion Gap 13 mmol/L (10-20); BUN (Urea Nitrogen) 13 mg/dL (8.4-25.7); Bilirubin, Total 0.6 mg/dL (0.2-1.2); Calc. Creatinine Clearance 0 mL/min (70-130); Calcium 9.1 mg/dL (7.8-10.44); Carbon Dioxide 24 mmol/L (23-31); Chloride 106 mmol/L (98-107); Estimated GFR 76; Globulin 3.4 g/dL (2.4-3.5); Glucose 178 mg/dL (80-115); Potassium 3.7 mmol/L (3.5-5.1); Sodium 139 mmol/L (136-145)
[2024-05-10 15:43] LABS: Troponin I Less than 0.010 ng/mL (< 0.028)
[2024-05-10] MEDS ORDERED: Morphine 4 MG/ML VIAL ONE (17:29)
[2024-05-10] MEDS ORDERED: Ketorolac Tromethamine 30 MG (1 mL) VIAL ONE (17:29)
== END 2024-05-10 17:48 | disposition home or self-care (01) ==
LOC: ERS 12:37
DX: S00.93XA Contusion of unspecified part of head, initial encounter (principal); S13.4XXA Sprain of ligaments of cervical spine, initial encounter; S13.9XXA Sprain of joints and ligaments of unspecified parts of neck, initial encounter; E11.9 Type 2 diabetes mellitus without complications; I10 Essential (primary) hypertension; W18.2XXA Fall in (into) shower or empty bathtub, initial encounter
CPT/HCPCS: 36415; 71045; 72072; 72100; 72125; 80053; 83880; 84484; 85025; 93005; 96372; 99284; J1885; J2272

== ENCOUNTER 2024-05-20 10:55 | Outpatient (CLI) | payer OTHER | END 2024-05-20 10:56 | disposition home or self-care (01) | LOC: RAD 10:55 | DX: M54.2 Cervicalgia (principal); M47.812 Spondylosis without myelopathy or radiculopathy, cervical region; Z98.1 Arthrodesis status | CPT/HCPCS: 72040 ==

== ENCOUNTER 2024-06-09 13:00 | Outpatient (CLI) | payer OTHER ==
[2024-06-09 15:02] LABS: Anion Gap 14 mmol/L (10-20); BUN (Urea Nitrogen) 22 mg/dL (8.4-25.7); Calc. Creatinine Clearance 0 mL/min (70-130); Calcium 9.5 mg/dL (7.8-10.44); Carbon Dioxide 26 mmol/L (23-31); Chloride 103 mmol/L (98-107); Estimated GFR 72; Glucose 162 mg/dL (80-115); Potassium 4.5 mmol/L (3.5-5.1); Sodium 138 mmol/L (136-145)
== END 2024-06-09 13:01 | disposition home or self-care (01) ==
LOC: LABBT 13:00
PROVIDERS: ATTEND Orthopaedic Surgery
DX: Z01.812 Encounter for preprocedural laboratory examination (principal); M54.16 Radiculopathy, lumbar region; M54.50 Low back pain, unspecified
CPT/HCPCS: 80048

== ENCOUNTER 2024-06-14 09:33 | Day surgery (SDC) | payer OTHER ==
[2024-06-14] MEDS ORDERED: Propofol 1,000 MG/100 ML VIAL IV ONE (09:53)
[2024-06-14] MEDS ORDERED: PHENYLEPHRINE-NS 100 MCG/ML 10 ML SYRINGE ONE (09:54)
[2024-06-14] MEDS ORDERED: Glycopyrrolate 0.2 MG/ML 5 ML SYRINGE ONE (10:45)
[2024-06-14] MEDS ORDERED: Ondansetron PF 4 MG/2 ML Vial ONE (10:45)
[2024-06-14] MEDS ORDERED: Dexamethasone 20 MG/5 ML VIAL ONE (10:45)
[2024-06-14] MEDS ORDERED: Lidocaine 1% PF 5 ML VIAL ONE (10:45)
[2024-06-14] MEDS ORDERED: ePHEDrine Sulfate 50 MG/10 ML VIAL ONE (10:45)
[2024-06-14] MEDS ORDERED: fentaNYL 50 mcg/mL 1 mL Vial ONE (12:00)
== END 2024-06-14 13:01 | disposition home or self-care (01) ==
LOC: SDC 09:33 → EDSTATUS 12:00 → SDC 13:01
PROVIDERS: ATTEND Orthopaedic Surgery
DX: M54.16 Radiculopathy, lumbar region (principal); I10 Essential (primary) hypertension; G47.33 Obstructive sleep apnea (adult) (pediatric); E11.9 Type 2 diabetes mellitus without complications; E66.01 Morbid (severe) obesity due to excess calories; Z68.42 Body mass index [BMI] 45.0-49.9, adult; Z79.84 Long term (current) use of oral hypoglycemic drugs; Z79.82 Long term (current) use of aspirin; Z79.899 Other long term (current) drug therapy
CPT/HCPCS: 72131; 72148; J1100; J2405; J2704; J3010

== ENCOUNTER 2024-06-19 21:36 | Observation (INO) | payer OTHER ==
[~2024-06-19 21:36] MED LIST changes: -Iopamidol 370 76% 100 ML VIAL ONE; +Iopamidol-370 76% 500 ML MDV (1 ML CHARGE) ONE
[2024-06-19 22:43] LABS: #Basophils 0.06 10x3/uL (0.0-0.2); %Basophils 0.9 % (0.0-1.0); %Eosinophils 5.4 % (0.0-10.0); %Lymphocytes 24.9 % (21.0-51.0); %Neutrophils 59.9 % (42.0-75.0); Mean Corpuscular HGB CONC 32.4 g/dL (32.0-36.0); Mean Corpuscular Hemoglobin 28.2 pg (27.0-31.0); Mean Corpuscular Volume 86.9 fL (78.0-98.0); Mean Platelet Volume 8.5 fL (7.4-10.4); Platelet Count 378 10x3/uL (130-400); Red Blood Cell (RBC) Count 4.26 mill/uL (4.70-6.10)
[2024-06-19 22:53] LABS: INR-International Normal Ratio 0.9; PTT 24.5 sec (22.9-36.1); Prothrombin Time 12.2 sec (12.0-14.7)
[2024-06-19 23:02] LABS: ALT (SGPT) 17 U/L (Less than 45); AST (SGOT) 22 U/L (11-34); Albumin 3.4 g/dL (3.1-4.5); Alkaline Phosphatase 111 U/L (40-110); Anion Gap 14 mmol/L (10-20); BUN (Urea Nitrogen) 18 mg/dL (8.4-25.7); Bilirubin, Total 0.5 mg/dL (0.3-1.2); Calc. Creatinine Clearance 0 mL/min (70-130); Calcium 8.7 mg/dL (7.8-10.44); Carbon Dioxide 22 mmol/L (23-31); Chloride 104 mmol/L (98-107); Estimated GFR 74; Globulin 3.6 g/dL (2.4-3.5); Glucose 230 mg/dL (80-115); Potassium 4.2 mmol/L (3.5-5.1); Sodium 136 mmol/L (136-145)
[2024-06-19 23:07] LABS: Troponin I Less than 0.010 ng/mL (< 0.028)
[2024-06-20] MEDS ORDERED: Acetaminophen 500 MG TAB ONE (00:02)
[2024-06-20 00:20] LABS: Bacteria/HPF None Seen HPF (None Seen); Bilirubin Negative (Negative); Blood, Urine Negative (Negative); Clarity Clear (Clear); Glucose, Urine (Dipstick) Normal (Negative); Ketone, Urine Negative (Negative); Leukocyte Negative Leu/uL (Negative); Nitrite Negative (Negative); Protein, Urine (Dipstick) Negative (Neg-Trace); RBC/HPF 0-3 HPF (0-3); Specific Gravity, Urine 1.049 (1.002-1.036); Squamous Epithelial None Seen HPF (0-3); Urobilinogen Normal mg/dL (Less than 2); WBC/HPF 0-3 HPF (0-3); pH, Urine 5.5 (5.0-9.0)
[2024-06-20] MEDS ORDERED: Ketorolac Tromethamine 30 MG (1 mL) VIAL ONE ×2 (00:34→01:36)
[2024-06-20] MEDS ORDERED: diphenhydrAMINE 50 MG/ML VIAL ONE (00:34)
[2024-06-20] MEDS ORDERED: Metoclopramide HCl 10 MG (2 mL) VIAL ONE (00:34)
[2024-06-20] MEDS ORDERED: Aspirin Chewable 81 MG TAB ONE (00:39)
[2024-06-20 02:49] VITALS: BMI 50.1
[2024-06-20 02:50] VITALS: TEMP 98.5
[2024-06-20] MEDS ORDERED: HYDROcodone/Acetaminophen 10/325 mg Tablet PO PRN (03:55)
[2024-06-20] MEDS ORDERED: Senokot S 8.6-50 MG TAB PO PRN (03:55)
[2024-06-20] MEDS ORDERED: hydrALAZINE 20 MG/ML VIAL SLOW IVP PRN (03:58)
[2024-06-20] MEDS ORDERED: Acetaminophen 325 MG TAB PO PRN (03:59)
[2024-06-20] MEDS ORDERED: Ondansetron PF 4 MG/2 ML Vial IVP PRN (03:59)
[2024-06-20] MEDS ORDERED: Ondansetron ODT 4 MG TAB PO PRN (03:59)
[2024-06-20] MEDS ORDERED: Ketorolac Tromethamine 30 MG (1 mL) VIAL IVP PRN (03:59)
[2024-06-20] MEDS ORDERED: Acetaminophen 650 MG Suppository PR PRN (03:59)
[2024-06-20] MEDS ORDERED: Calcium Carbonate 500 MG ChewTAB PO PRN (03:59)
[2024-06-20 04:12] VITALS: BP 125/86
[2024-06-20] MEDS ORDERED: HYDROcodone/Acetaminophen 10/325 mg Tablet ONE (04:20)
[2024-06-20] MEDS ORDERED: Famotidine 20 MG TAB PO SCH (09:00)
[2024-06-20] MEDS ORDERED: Multivitamin W/ Minerals 1 TAB PO SCH (09:00)
[2024-06-20] MEDS ORDERED: CeleCOXIB 100 MG CAP PO SCH (09:00)
[2024-06-20] MEDS ORDERED: Hydrochlorothiazide 25 MG TAB PO SCH (09:00)
[2024-06-20] MEDS ORDERED: dilTIAZem CD 240 MG CAP PO SCH (09:00)
[2024-06-20] MEDS ORDERED: Famotidine/PF 20 mg/2ml Vial SLOW IVP SCH (09:00)
[2024-06-20] MEDS ORDERED: DULoxetine 60 MG CAP PO SCH (09:00)
[2024-06-20] MEDS ORDERED: Aspirin 81 mg Enteric Coated Tablet PO SCH (09:00)
[2024-06-20] MEDS ORDERED: Metoprolol Succinate XL 50 MG ER.TAB PO SCH (09:00)
[2024-06-20] MEDS ORDERED: metFORMIN 500 MG TAB PO SCH (09:00)
[2024-06-20] MEDS ORDERED: Losartan 25 MG TAB PO SCH (09:00)
[2024-06-20] MEDS ORDERED: Atorvastatin Calcium 20 MG TAB PO SCH (21:00)
== END 2024-06-20 04:37 | disposition left against medical advice (07) ==
LOC: ERS 21:36 → ERHOLD 23:23
PROVIDERS: ADMIT Family Medicine; ATTEND Family Medicine
DX: R51.9 Headache, unspecified (principal); R20.2 Paresthesia of skin; E11.9 Type 2 diabetes mellitus without complications; E78.5 Hyperlipidemia, unspecified; M54.9 Dorsalgia, unspecified; M19.90 Unspecified osteoarthritis, unspecified site; Z86.718 Personal history of other venous thrombosis and embolism; Z88.5 Allergy status to narcotic agent; Z96.642 Presence of left artificial hip joint; Z98.890 Other specified postprocedural states; Z79.899 Other long term (current) drug therapy; Z79.84 Long term (current) use of oral hypoglycemic drugs
CPT/HCPCS: 70450; 70496; 70498; 71045; 80053; 81001; 84484; 85025; 85610; 85730; 93005; G0378; J1200; J1885; J2765; Q9967; 36415; 96374; 96375

== ENCOUNTER 2025-01-30 15:50 | Emergency (ER) | payer OTHER ==
[2025-01-30 16:53] LABS: #Basophils 0.04 10x3/uL (0.0-0.2); #Eosinophils 0.08 10x3/uL (0.0-0.7); #Monocytes 0.61 10x3/uL (0.11-0.59); #Neutrophils 14.38 10x3/uL (1.40-6.50); %Basophils 0.3 % (0.0-1.0); %Eosinophils 0.5 % (0.0-10.0); %Lymphocytes 4.4 % (21.0-51.0); %Monocytes 3.8 % (0.0-10.0); %Neutrophils 90.6 % (42.0-75.0); Hematocrit 41.9 % (42.0-52.0); Hemoglobin 13.2 g/dL (14.0-18.0); Mean Corpuscular Hemoglobin 27.9 pg (27.0-31.0); Mean Corpuscular Volume 88.6 fL (78.0-98.0); Platelet Count 413 10x3/uL (130-400); Red Blood Cell (RBC) Count 4.73 mill/uL (4.70-6.10); White Blood Cell (WBC) Count 15.86 10x3/uL (4.8-10.8)
[2025-01-30 17:11] LABS: ALT (SGPT) 18 U/L (Less than 45); AST (SGOT) 15 U/L (11-34); Albumin 3.9 g/dL (3.1-4.5); Alkaline Phosphatase 154 U/L (40-110); Anion Gap 15 mmol/L (10-20); BUN (Urea Nitrogen) 15 mg/dL (8.4-25.7); Bilirubin, Total 0.5 mg/dL (0.3-1.2); Calc. Creatinine Clearance 0 mL/min (70-130); Calcium 9.4 mg/dL (7.8-10.44); Carbon Dioxide 23 mmol/L (23-31); Chloride 104 mmol/L (98-107); Globulin 3.4 g/dL (2.4-3.5); Glucose 112 mg/dL (80-115); Lipase 7 U/L (8-78); Potassium 4.4 mmol/L (3.5-5.1); Sodium 138 mmol/L (136-145)
[2025-01-30] MEDS ORDERED: Nitroglycerin 0.4 MG TAB 1 EACH ONE (17:32)
[2025-01-30] MEDS ORDERED: Mag-Al 1200 mg/1200 mg/30 ML UDCUP ONE (20:29)
[2025-01-30] MEDS ORDERED: Famotidine/PF 20 mg/2ml Vial ONE (20:30)
== END 2025-01-30 22:32 | disposition home or self-care (01) ==
LOC: ERS 15:50
DX: R07.2 Precordial pain (principal); E11.9 Type 2 diabetes mellitus without complications; I10 Essential (primary) hypertension; Z55.6 Problems related to health literacy
CPT/HCPCS: 71045; 71275; 80053; 83690; 83880; 84484 ×2; 85025; 85379; 93005; 94760; J1308; J3010; 36415; 96374; 96375; 96376; Q9967

== ENCOUNTER 2025-03-23 11:45 | Outpatient (CLI) | payer OTHER | END 2025-03-23 11:46 | disposition home or self-care (01) | LOC: SCSRAD 11:45 | PROVIDERS: ATTEND Orthopaedic Surgery | DX: M54.2 Cervicalgia (principal); M54.50 Low back pain, unspecified; M25.78 Osteophyte, vertebrae; M47.816 Spondylosis without myelopathy or radiculopathy, lumbar region; Z98.1 Arthrodesis status; Z98.890 Other specified postprocedural states | CPT/HCPCS: 36415; 72040; 72100; 83520; 84550; 85025; 86038; 86140; 86200; 86225; 86618 ==

== ENCOUNTER 2025-05-12 14:15 | Emergency (ER) | payer OTHER ==
[2025-05-12 17:04] LABS: Bacteria/HPF None Seen HPF (None Seen); CAUTI Indications for Culture Dysuria,urgency,freq; Glucose, Urine (Dipstick) Normal (Negative); Leukocyte Negative Leu/uL (Negative); Protein, Urine (Dipstick) Negative (Neg-Trace); RBC/HPF None Seen HPF (0-3); Specific Gravity, Urine 1.020 (1.002-1.036); WBC/HPF None Seen HPF (0-3)
[2025-05-12 17:06] LABS: Urine Culture Reflex No No
[2025-05-12 17:26] LABS: #Basophils 0.05 10x3/uL (0.0-0.2); #Eosinophils 0.09 10x3/uL (0.0-0.7); #Monocytes 0.35 10x3/uL (0.11-0.59); #Neutrophils 5.00 10x3/uL (1.40-6.50); %Basophils 0.7 % (0.0-1.0); %Eosinophils 1.3 % (0.0-10.0); %Lymphocytes 21.6 % (21.0-51.0); %Monocytes 5.0 % (0.0-10.0); %Neutrophils 70.8 % (42.0-75.0); Hematocrit 42.2 % (42.0-52.0); Hemoglobin 13.4 g/dL (14.0-18.0); Mean Corpuscular Hemoglobin 28.6 pg (27.0-31.0); Mean Corpuscular Volume 90.0 fL (78.0-98.0); Platelet Count 343 10x3/uL (130-400); Red Blood Cell (RBC) Count 4.69 mill/uL (4.70-6.10); White Blood Cell (WBC) Count 7.05 10x3/uL (4.8-10.8)
[2025-05-12] MEDS ORDERED: Dexamethasone 10 MG/ML VIAL ONE (17:28)
[2025-05-12 17:48] LABS: ALT (SGPT) 10 U/L (Less than 45); AST (SGOT) 15 U/L (11-34); Albumin 4.2 g/dL (3.1-4.5); Alkaline Phosphatase 100 U/L (40-110); Anion Gap 11 mmol/L (10-20); BUN (Urea Nitrogen) 12 mg/dL (8.4-25.7); Bilirubin, Total 0.5 mg/dL (0.3-1.2); Calc. Creatinine Clearance 0 mL/min (70-130); Calcium 9.3 mg/dL (7.8-10.44); Carbon Dioxide 27 mmol/L (23-31); Chloride 106 mmol/L (98-107); Globulin 3.4 g/dL (2.4-3.5); Glucose 94 mg/dL (80-115); Potassium 4.3 mmol/L (3.5-5.1); Sodium 140 mmol/L (136-145)
== END 2025-05-12 19:17 | disposition home or self-care (01) ==
LOC: ERS 14:15
DX: M54.2 Cervicalgia (principal); R51.9 Headache, unspecified; M25.511 Pain in right shoulder; E11.9 Type 2 diabetes mellitus without complications; Z79.899 Other long term (current) drug therapy; Z79.82 Long term (current) use of aspirin
CPT/HCPCS: 70450; 72125; 73030; 80053; 81001; 84484; 85025; 93005; J1100; J2270; 36415; 96372